=== PATIENT | female | born 1945 | race Caucasian/White ===

== ENCOUNTER 2017-01-07 12:11 | Inpatient (IN) | payer MEDICARE ==
[~2017-01-07] VITALS: Ht 167.6 cm; Wt 78.0 kg
[~2017-01-07 12:11] MED LIST: MECL25 PO; Z.0.NO CURRENT MEDS
[2017-01-07 12:14] VITALS: BP 177/81; PULSE 93; RESP 20; TEMP 97.8; O2SAT 98
--- NOTE | 2017-01-07 12:40 | PD ---
HPI Chief Complaint: GI Complaint Time Seen by Provider: 12:30 Travel History International Travel<30 days: No Contact w/Intl Traveler<30days: No Traveled to known affect area: No History of Present Illness HPI 71-year-old female presents for evaluation of constipation, nausea. She reports that for 2 days she has been constipated- her last bowel movement was 3 days ago. She does report that over the past week she has been eating less in an attempt at dieting weight loss. She reports nausea the past 2 days as well as 2 episodes of small clear emesis this morning. She reports that she is also had intermittent lower crampy abdominal pain but none currently. Denies chest pain, shortness of breath, flank pain, dysuria. She was seen by her primary care physician this morning, Dr. Schmid, who sent her here to rule out obstruction. Discussed with Dr. Schmid on the phone who would like CT imaging, lab work. The patient has no history of obstruction in the past. she reports past surgical history of bilateral oophorectomy. No other complaints at this time. [facility] Past Medical History Anxiety: Yes Medical other: Yes (PSEUDOCHOLINESTERASE DEFICIENCY) ?: Not Ovarian Cysts: Yes (BILATERAL OOPHERECTOMY, PER PT UTERUS STILL INTACT) Social History Alcohol Use: No Tobacco Use: No Substance Use: No Allergies-Medications (Allergen,Severity, Reaction): Coded Allergies: egg (Unverified Allergy, Severe, 01/07/17) succinylcholine (Unverified Allergy, Severe, 01/07/17) penicillin G (Unverified Allergy, Unknown, 01/07/17) Reported Meds & Prescriptions Reported Meds & Active Scripts Active Review of Systems Except as stated in HPI: all other systems reviewed are Neg Physical Exam Narrative GENERAL: Well-developed well-nourished female in no acute distress SKIN: Warm and dry. HEAD: Atraumatic. Normocephalic. EYES: Pupils equal and round. No scleral icterus. No injection or drainage. ENT: No nasal bleeding or discharge. Mucous membranes pink and moist. NECK: Trachea midline. No JVD. CARDIOVASCULAR: Regular rate and rhythm. No murmur appreciated. RESPIRATORY: No accessory muscle use. Clear to auscultation. Breath sounds equal bilaterally. GASTROINTESTINAL: Abdomen soft, non-tender, nondistended. Hepatic and splenic margins not palpable. Normoactive bowel sounds in all 4 quadrants MUSCULOSKELETAL: No obvious deformities. No clubbing. No cyanosis. No edema. NEUROLOGICAL: Awake and alert. No obvious cranial nerve deficits. Motor grossly within normal limits. Normal speech. PSYCHIATRIC: Appropriate mood and affect; insight and judgment normal. Data Data Last Documented VS Vital Signs Date Time Temp Pulse Resp B/P (MAP) Pulse Ox O2 Delivery O2 Flow Rate FiO2 01/07/17 15:54 93 18 180/87 (118) 97 Room Air 01/07/17 12:14 97.8 Orders Orders Complete Blood Count With Diff (01/07/17 12:35) Comprehensive Metabolic Panel (01/07/17 12:35) Lipase (01/07/17 12:35) Urinalysis - C+S If Indicated (01/07/17 12:35) Ct Abd/Pel W Iv Contrast(Rout) (01/07/17 12:35) Iv Access Insert/Monitor (01/07/17 12:35) Ondansetron Inj (Zofran Inj) (01/07/17 12:45) Sodium Chlorid 0.9% 500 Ml Inj (Ns 500 M (01/07/17 12:45) Oral Contrast - Adult (01/07/17 12:52) Diatrizoate Liq ( Gastrodonnie Liq) (01/07/17 12:54) Metoclopramide Inj (Reglan Inj) (01/07/17 14:15) Iohexol 350 Inj (Omnipaque 350 Inj) (01/07/17 14:46) Ondansetron Inj (Zofran Inj) (01/07/17 15:00) Admit Order (Ed Use Only) (01/07/17 16:28) Labs Laboratory Tests Test 01/07/17 13:10 01/07/17 13:16 01/07/17 16:20 White Blood Count 12.9 TH/MM3 Red Blood Count 4.21 MIL/MM3 Hemoglobin 11.9 GM/DL Hematocrit 36.1 % Mean Corpuscular Volume 85.7 FL Mean Corpuscular Hemoglobin 28.4 PG Mean Corpuscular Hemoglobin Concent 33.1 % Red Cell Distribution Width 13.3 % Platelet Count 405 TH/MM3 Mean Platelet Volume 6.9 FL Neutrophils (%) (Auto) 91.2 % Lymphocytes (%) (Auto) 5.2 % Monocytes (%) (Auto) 2.7 % Eosinophils (%) (Auto) 0.0 % Basophils (%) (Auto) 0.9 % Neutrophils # (Auto) 11.8 TH/MM3 Lymphocytes # (Auto) 0.7 TH/MM3 Monocytes # (Auto) 0.3 TH/MM3 Eosinophils # (Auto) 0.0 TH/MM3 Basophils # (Auto) 0.1 TH/MM3 CBC Comment DIFF FINAL Differential Comment Blood Urea Nitrogen 16 MG/DL Creatinine 0.91 MG/DL Random Glucose 114 MG/DL Total Protein 8.1 GM/DL Albumin 3.4 GM/DL Calcium Level 8.7 MG/DL Alkaline Phosphatase 84 U/L Aspartate Amino Transf (AST/SGOT) 19 U/L Alanine Aminotransferase (ALT/SGPT) 27 U/L Total Bilirubin 0.9 MG/DL Sodium Level 135 MEQ/L Potassium Level 3.9 MEQ/L Chloride Level 100 MEQ/L Carbon Dioxide Level 22.5 MEQ/L Anion Gap 13 MEQ/L Estimat Glomerular Filtration Rate 61 ML/MIN Lipase 60 U/L Thyroid Stimulating Hormone 3rd Gen 1.580 uIU/ML Urine Color YELLOW Urine Turbidity SLIGHT Urine pH 5.5 Urine Specific [place] GREATER THAN 1.035 Urine Protein TRACE mg/dL Urine Glucose (UA) NEG mg/dL Urine Ketones 80 OR GREATER mg/dL Urine Occult Blood MOD Urine Nitrite NEG Urine Bilirubin NEG Urine Leukocyte Esterase NEG Urine RBC 4-9 /hpf Urine WBC 9-14 /hpf Urine WBC Clumps FEW Urine Squamous Epithelial Cells 6-8 /hpf Microscopic Urinalysis Comment CULTURE INDICATED MDM Medical Decision Making Medical Screen Exam Complete: Yes Emergency Medical Condition: Yes Medical Record Reviewed: Yes Differential Diagnosis Obstruction, constipation, gastroenteritis, ileus Narrative Course Plan is for basic lab work, CT abdomen and pelvis. The patient received IV Zofran, Reglan for nausea. CT abdomen and pelvis reveals CONCLUSION: 1. There is a pelvis mass that is obstructing the distal sigmoid colon. It measures approximately 4.2 x 2.8 cm. The colon proximal to this portion is dilated and filled with fluid and fecal material. 2. The pelvis mass abuts the vaginal apex, protrudes into the urinary bladder, and is contiguous with the sigmoid colon mass. Therefore, this could represent a colon cancer that has secondarily invaded the surrounding structures or potentially a INTAKE ASSESSOR malignancy that has secondarily invaded the surrounding structures. Given that the epicenter of the mass is mostly outside of the urinary bladder, it is less likely bladder in origin. 3. Nonacute findings include small hiatal hernia and mild atherosclerotic disease. Patient has a history of hysterectomy, oopharectomy. Dr. Wilson discussed the findings with on-call general surgeon Dr. Maddox who recommends consultation with gynecology. Discussed with asphalt paving foreman Dr. Pineda. Dr. Nunez came to see the patient and would like the patient admitted to Dr. Ackerman at [facility]. Diagnosis Primary Impression: Pelvic mass in female Additional Impression: Large bowel obstruction Admitting Information Admitting Physician Requests: Admit Scripts No Active Prescriptions or Reported Meds Chaparro Ureña Jan 07, 2017 12:40
[2017-01-07] MEDS ORDERED: SODIUM CHLORID 0.9% 500 ML INJ 500 ML IV ONE (12:45)
[2017-01-07] MEDS ORDERED: ONDANSETRON HCL 4 MG/2 ML VIAL IVP ONE (12:45)
[2017-01-07] MEDS ORDERED: DIATRIZOATE MEGLUM/DIATRIZOATE SOD 9 ML CUP ONE (12:54)
[2017-01-07 13:15] LABS: AUTOMATED NEUTROPHIL # 11.8 TH/MM3 (1.8-7.7); BASOPHIL # 0.1 TH/MM3 (0-0.2); BASOPHIL % 0.9 % (0.0-2.0); HEMATOCRIT 36.1 % (35.0-46.0); HEMO FLAGS DIFF FINAL; LYMPH % 5.2 % (9.0-44.0); LYMPHOCYTE # 0.7 TH/MM3 (1.0-4.8); MEAN CELL VOLUME 85.7 FL (80.0-100.0); MEAN CORPUSCULAR HEMOGLOBIN 28.4 PG (27.0-34.0); MEAN CORPUSCULAR HGB CONC 33.1 % (32.0-36.0); MONO % 2.7 % (0.0-8.0); NEUT % 91.2 % (16.0-70.0); PLATELET COUNT 405 TH/MM3 (150-450); RED BLOOD COUNT 4.21 MIL/MM3 (4.00-5.30); RED CELL DISTRIBUTION WIDTH 13.3 % (11.6-17.2); WHITE BLOOD COUNT 12.9 TH/MM3 (4.0-11.0)
[2017-01-07 13:22] LABS: CHLORIDE 100 MEQ/L (98-107); POTASSIUM 3.9 MEQ/L (3.5-5.1); SODIUM (NA) 135 MEQ/L (136-145)
[2017-01-07 13:26] LABS: ANION GAP 13 MEQ/L (5-15); BICARBONATE 22.5 MEQ/L (21.0-32.0); BLOOD UREA NITROGEN 16 MG/DL (7-18)
[2017-01-07 13:29] LABS: ALT (GPT) 27 U/L (10-53); AST (GOT) 19 U/L (15-37); GLOMERULAR FILTRATION RATE 61 ML/MIN (>89)
[2017-01-07 13:30] LABS: TOTAL BILIRUBIN ADULT 0.9 MG/DL (0.2-1.0)
[2017-01-07 13:31] LABS: ALKALINE PHOSPHATASE 84 U/L (45-117)
[2017-01-07] MEDS ORDERED: METOCLOPRAMIDE HCL 10 MG/2 ML VIAL IV PUSH ONE (14:15)
[2017-01-07] MEDS ORDERED: IOHEXOL 350 MG/ML 10 ML VIAL (for RAD DIAG) IVCONTRAST ONE (14:46)
[2017-01-07] MEDS ORDERED: ONDANSETRON HCL 4 MG/2 ML VIAL IV PUSH ONE (15:00)
--- NOTE | 2017-01-07 15:15 | RADRPT ---
EXAM DATE/TIME: 01/07/2017 14:35 [facility] COMPARISON: No previous studies available for comparison. INDICATIONS : Nausea and constipation. IV CONTRAST: 95 cc Omnipaque 350 (iohexol) IV ORAL CONTRAST: Partial prescribed oral contrast ingested. RADIATION DOSE: 13.88 CTDIvol (mGy) MEDICAL HISTORY : None SURGICAL HISTORY : Hysterectomy. ENCOUNTER: Initial ACUITY: 1 week PAIN SCALE: 5/10 LOCATION: ABDOMEN TECHNIQUE: Volumetric scanning of the abdomen and pelvis was performed. Using automated exposure control and ad justment of the mA and/or kV according to patient size, radiation dose was kept as low as reasonably achievable to obtain optimal diagnostic quality images. DICOM format image data is available electro nically for review and comparison. FINDINGS: LOWER LUNGS: The visualized lower lungs are clear. LIVER: Homogeneous density without lesion. There is no dilation of the biliary tree. No calcified gallston es. SPLEEN: Normal size without lesion. PANCREAS: Within normal limits. KIDNEYS: Normal in size and shape. There is no mass, stone or hydronephrosis. There is an 18 mm simple cyst i n the right mid kidney. An incidental 4 mm low density lesion in the left mid kidney is too small to characterize. ADRENAL GLANDS: Within normal limits. VASCULAR: There is no aortic aneurysm. There is mild atherosclerotic disease. BOWEL/MESENTERY: A small hiatal hernia is present. Small bowels within normal limits. Colon is abnormally dilated with fecal material and air fluid levels. Caliber change is in the distal sigmoid colon where there is an obstructing mass measuring approximately 4.2 x 2.8 cm. Inferiorly the mass is contiguous with the va ginal apex and a mass protruding into the posterior urinary bladder. Rectum is decompressed. There is trace free fluid in the pelvis. No regional lymphadenopathy is identified. There is no free intraper itoneal air. ABDOMINAL WALL: Within normal limits. RETROPERITONEUM: There is no lymphadenopathy. BLADDER: The pelvis mass abuts the vaginal apex, obstruction the distal sigmoid colon, and protrudes into the urinary bladder. The portion protruding into the bladder measures approximately 4.3 x 1.9 cm. REPRODUCTIVE: Uterus is absent. There is an abnormal soft tissue mass at the vaginal apex that is contiguous with a mass protruding into the urinary bladder and obstructing the distal sigmoid colon. INGUINAL: There is no lymphadenopathy or hernia. MUSCULOSKELETAL: There are degenerative changes of the lumbar spine. No lytic or blastic lesion is seen. CONCLUSION: 1. There is a pelvis mass that is obstructing the distal sigmoid colon. It measures approximately 4.2 x 2.8 cm. The colon proximal to this portion is dilated and filled with fluid and fecal material. 2. The pelvis mass abuts the vaginal apex, protrudes into the urinary bladder, and is contiguous with the sigmoid colon mass. Therefore, this could represent a colon cancer that has secondarily invaded the surrounding structures or potentially a CONSTRUCTION JOB COST ESTIMATOR malignancy that has secondarily invaded the surroundi ng structures. Given that the epicenter of the mass is mostly outside of the urinary bladder, it is l ess likely bladder in origin. 3. Nonacute findings include small hiatal hernia and mild atherosclerotic disease. Jorge Gleason MD on January 07, 2017 at 15:05 Board Certified Radiologist. This report was verified electronically.
[2017-01-07 15:54] VITALS: BP 180/87; PULSE 93; RESP 18; O2SAT 97
[2017-01-07 16:35] LABS: BLOOD, URINE MOD (NEG); GLUCOSE,URINE NEG (NEG); KETONE, URINE 80 OR GREATER mg/dL (NEG); NITRITE,URINE NEG (NEG); PH, URINE 5.5 (5.0-8.5)
--- NOTE | 2017-01-07 16:59 | HHI.HP ---
HPI Service [facility] Hospitalists Primary Care Physician Tianna Teresa MD Admission Diagnosis pelvic mass, sigmoid obstruction Chief Complaint: Abdominal pain constipation, sent to ER by primary care physician Travel History International Travel<30 Days: No Contact w/Intl Traveler <30 Da: No Traveled to Known Affected Are: No History of Present Illness 71-year-old white female who is relatively healthy but presented to her primary care physician's office today with concern regarding abdominal pain which started yesterday. Pain is in the lower abdomen without any significant reinitiation. She also has noted some constipation over the last 2-3 days. She has a cramping type pain which lasts several seconds with intensity of a 5 out of 10 in pain generally. She has had constant nausea with a couple episodes of clear phlegm posttussive emesis but no significant volume of emesis. Pain seems to be improved with lying flat in the supine position with flexed legs. She notes that she generally passes a fair amount of stool each morning but only had a small bowel movement yesterday morning. No recent change in diet. No fever or chills. Denies any dysuria or hematuria or vaginal discharge. Last colonoscopy was in 2010 with no apparent diverticulosis. CT scan of abdomen and pelvis performed in the ER revealed a 4.2 x 2.8 cm pelvic mass with colonic obstruction due to impingement by the mass. Mass etiology somewhat unclear but not thought to be of bladder origin. More likely colonic or possibly remnant LEATHER WORKER tissue origin. Review of Systems Constitutional: COMPLAINS OF: Diaphoretic episodes, Fatigue Eyes: DENIES: Blurred vision, Diplopia, Eye inflammation, Eye pain, Vision loss , Photosensitivity, Double Vision Ears, nose, mouth, throat: DENIES: Tinnitus, Hearing loss, Vertigo, Nasal discharge, Oral lesions, Throat pain, Hoarseness, Ear Pain, Running Nose, Epistaxis, Sinus Pain, Toothache, Odynophagia Respiratory: COMPLAINS OF: Cough, DENIES: Apneas, Snoring, Wheezing, Hemoptysis , Sputum production, Shortness of breath Cardiovascular: DENIES: Chest pain, Palpitations, Syncope, Dyspnea on Exertion , PND, Lower Extremity Edema, Orthopnea, Claudication Gastrointestinal: COMPLAINS OF: Abdominal pain, Constipation, Nausea, Reflux, Vomiting Musculoskeletal: DENIES: Joint pain, Muscle aches, Stiffness, Joint Swelling, Back pain, Neck pain Integumentary: DENIES: Abnormal pigmentation, Pruritus, Rash, Nail changes, Breast masses, Breast skin changes, Nipple discharge Hematologic/lymphatic: DENIES: Bruising, Lymphadenopathy Immunologic/allergic: DENIES: Eczema, Urticaria Psychiatric: COMPLAINS OF: Anxiety Past Family Social History Past Medical History CK D stage III Anxiety History of esophagitis Hyperlipidemia Pseudocholinesterase deficiency Vitamin D insufficiency Past Surgical History History of biopsy of the cervix which apparently revealed some atypical precancerous cells per patient Cervical conization by laser History of total abdominal hysterectomy with bilateral oophorectomy per patient for "precancerous cells in a cyst" in 2004; review of previous LEATHER WORKER oncology notes reveals that she had some dysplastic cells and 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 SKIN: No rashes, ecchymoses or lesions. Cool and dry. HEAD: Atraumatic. Normocephalic. No temporal or scalp tenderness. EYES: Pupils equal round and reactive. Extraocular motions intact. No scleral icterus. No injection or drainage. ENT: Nose without bleeding, purulent drainage or septal hematoma. Airway patent. NECK: Trachea midline. No JVD or lymphadenopathy. Supple, nontender, no meningeal signs. CARDIOVASCULAR: Regular rate and rhythm without murmurs, gallops, or rubs. RESPIRATORY: Clear to auscultation. Breath sounds equal bilaterally. No wheezes , rales, or rhonchi. GASTROINTESTINAL: Abdomen soft, mildly tender in the lower mid abdomen with voluntary guarding. No rebound. Moderate distention of lower abdomen. No hepato-splenomegaly MUSCULOSKELETAL: Extremities without clubbing, cyanosis, or edema. No joint tenderness, effusion, or edema noted. No calf tenderness. NEUROLOGICAL: Awake and alert. Cranial nerves II through XII intact. Motor and sensory grossly within normal limits. Five out of 5 muscle strength in all muscle groups. Normal speech. Laboratory Laboratory Tests Test 01/07/17 13:10 01/07/17 16:20 White Blood Count 12.9 Red Blood Count 4.21 Hemoglobin 11.9 Hematocrit 36.1 Mean Corpuscular Volume 85.7 Mean Corpuscular Hemoglobin 28.4 Mean Corpuscular Hemoglobin Concent 33.1 Red Cell Distribution Width 13.3 Platelet Count 405 Mean Platelet Volume 6.9 Neutrophils (%) (Auto) 91.2 Lymphocytes (%) (Auto) 5.2 Monocytes (%) (Auto) 2.7 Eosinophils (%) (Auto) 0.0 Basophils (%) (Auto) 0.9 Neutrophils # (Auto) 11.8 Lymphocytes # (Auto) 0.7 Monocytes # (Auto) 0.3 Eosinophils # (Auto) 0.0 Basophils # (Auto) 0.1 CBC Comment DIFF FINAL Differential Comment Blood Urea Nitrogen 16 Creatinine 0.91 Random Glucose 114 Total Protein 8.1 Albumin 3.4 Calcium Level 8.7 Alkaline Phosphatase 84 Aspartate Amino Transf (AST/SGOT) 19 Alanine Aminotransferase (ALT/SGPT) 27 Total Bilirubin 0.9 Sodium Level 135 Potassium Level 3.9 Chloride Level 100 Carbon Dioxide Level 22.5 Anion Gap 13 Estimat Glomerular Filtration Rate 61 Lipase 60 Urine pH 5.5 Urine Protein TRACE Urine Glucose (UA) NEG Urine Ketones 80 OR GREATER Urine Occult Blood MOD Urine Nitrite NEG Urine Bilirubin NEG Urine Leukocyte Esterase NEG Result Diagram: 01/07/17 1310 01/07/17 1310 Imaging Last 72 hours Impressions Abdomen/Pelvis CT 01/07/17 1235 Signed Impressions: Service Date/Time: Saturday, January 07, 2017 14:35 - CONCLUSION: 1. There is a pelvis mass that is obstructing the distal sigmoid colon. It measures approximately 4.2 x 2.8 cm. The colon proximal to this portion is dilated and filled with fluid and fecal material. 2. The pelvis mass abuts the vaginal apex , protrudes into the urinary bladder, and is contiguous with the sigmoid colon mass. Therefore, this could represent a colon cancer that has secondarily invaded the surrounding structures or potentially a LEATHER WORKER malignancy that has secondarily invaded the surrounding structures. Given that the epicenter of the mass is mostly outside of the urinary bladder, it is less likely bladder in origin. 3. Nonacute findings include small hiatal hernia and mild atherosclerotic disease. MD Esther Mcleod VTE Risk Assessment Caprini VTE Risk Assessment: Mod/High Risk (score >= 2) Caprini Risk Assessment Model Point Value = 1 Point Value = 2 Point Value = 3 Point Value = 5 Age 41-60 Minor surgery BMI > 25 kg/m2 Swollen legs Varicose veins or History of unexplained or recurrent spontaneous Oral contraceptives or hormone replacement Sepsis (< 1 month) Serious lung disease, including pneumonia (< 1 month) Abnormal pulmonary function Acute myocardial infarction Congestive heart failure (< 1 month) History of inflammatory bowel disease Medical patient at bed rest Age 61-74 Arthroscopic surgery Major open surgery (> 45 min) Laparoscopic surgery (> 45 min) Malignancy Confined to bed (> 72 hours) Immobilizing plaster cast Central venous access Age >= 75 History of VTE Family history of VTE Factor V Leiden Prothrombin [id number] Lupus anticoagulant Anticardiolipin antibodies Elevated serum homocysteine Heparin-induced thrombocytopenia Other congenital or acquired thrombophilia Stroke (< 1 month) Elective arthroplasty Hip, pelvis, or leg fracture Acute spinal cord injury (< 1 month) Prophylaxis Regimen Total Risk Factor Score Risk Level Prophylaxis Regimen 0-1 Low Early ambulation 2 Moderate Order ONE of the following: *Sequential Compression Device (SCD) *Heparin 5000 units SQ BID 3-4 Higher Order ONE of the following medications: *Heparin 5000 units SQ TID *Enoxaparin/Lovenox 40 mg SQ daily (WT < 150 kg, CrCl > 30 mL/min) *Enoxaparin/Lovenox 30 mg SQ daily (WT < 150 kg, CrCl > 10-29 mL/min) *Enoxaparin/Lovenox 30 mg SQ BID (WT < 150 kg, CrCl > 30 mL/min) AND/OR *Sequential Compression Device (SCD) 5 or more Highest Order ONE of the following medications: *Heparin 5000 units SQ TID (Preferred with Epidurals) *Enoxaparin/Lovenox 40 mg SQ daily (WT < 150 kg, CrCl > 30 mL/min) *Enoxaparin/Lovenox 30 mg SQ daily (WT < 150 kg, CrCl > 10-29 mL/min) *Enoxaparin/Lovenox 30 mg SQ BID (WT < 150 kg, CrCl > 30 mL/min) AND *Sequential Compression Device (SCD) Assessment and Plan Problem List: (1) Large bowel obstruction ICD Codes: K56.609 - Unspecified intestinal obstruction, unspecified as to partial versus complete obstruction Status: Acute Plan: Likely secondary to obstructive masses noted on CT. We'll have LEATHER WORKER and general surgery see the patient to offer opinions. Vital signs are stable presently. Continue anti-medics and IV fluids. Pain medication as needed. We'll check a few additional labs given her LEATHER WORKER dysplasia history. (2) Pelvic mass in female ICD Codes: R19.00 - Intra-abdominal and pelvic swelling, mass and lump, unspecified site Status: Acute Plan: As noted above. (3) Anxiety ICD Codes: F41.9 - Anxiety disorder, unspecified Plan: Alprazolam as needed. (4) Hyperlipidemia ICD Codes: E78.5 - Hyperlipidemia, unspecified Plan: Follow as outpatient. Code Status Full Discussed Condition With Patient, her , patient's primary care physician and Dr. Bello. Physician Certification 2 Midnight Certification Type: Admission for Inpatient Services Order for Inpatient Services The services are ordered in accordance with Medicare regulations or non- Medicare payer requirements, as applicable. In the case of services not specified as inpatient-only, they are appropriately provided as inpatient services in accordance with the 2-midnight benchmark. Estimated LOS (days): 2 days is the estimated time the patient will need to remain in the hospital, assuming treatment plan goals are met and no additional complications. Post-Hospital Plan: Home Jarrell Nunez MD PhD Jan 07, 2017 16:59
[2017-01-07] MEDS ORDERED: ALPRAZolam 0.25 MG TAB PO PRN (17:00)
[2017-01-07 17:08] LABS: URINE COLOR YELLOW (YELLW/STRAW)
[2017-01-07 17:09] LABS: COMMENT (UR) CULTURE INDICATED; CULTURE IF INDICATED CULTURE INDICATED
[2017-01-07] MEDS: ONDANSETRON HCL 4 MG/2 ML VIAL IV PUSH PRN (17:09)
[2017-01-07] MEDS: NS + KCL 20 MEQ INJ 1,000 ML IV SCH (17:09)
[2017-01-07] MEDS: MORPHINE SULFATE 2 MG/ML INJ IV PUSH PRN (18:13)
[2017-01-07 18:45] VITALS: BP 174/72; PULSE 86; RESP 18; O2SAT 97
[2017-01-07 19:42] VITALS: BP 166/78
[2017-01-07 20:00] VITALS: BP 184/81; PULSE 84; RESP 18; TEMP 97.7; O2SAT 96
[2017-01-07] MEDS ORDERED: cefTRIAXone INJ 1,000 MG in SODIUM CHLORIDE 0.9% INJ 100 ML IV ONE (20:15)
[2017-01-07] MEDS: PROMETHAZINE INJ 25 MG/ML VIAL IM PRN (22:05)
[2017-01-08] VITALS: BP 141/83; PULSE 79; RESP 16; TEMP 97.6; O2SAT 98
[2017-01-08] MEDS: ONDANSETRON HCL 4 MG/2 ML VIAL IV PUSH PRN ×4 (01:08→22:08)
[2017-01-08] MEDS: MORPHINE SULFATE 2 MG/ML INJ IV PUSH PRN ×6 (01:09→22:03)
[2017-01-08 04:00] VITALS: BP 135/65; PULSE 82; RESP 18; TEMP 97.4; O2SAT 99
[2017-01-08] MEDS: NS + KCL 20 MEQ INJ 1,000 ML IV SCH ×2 (05:02→07:12)
[2017-01-08 07:32] LABS: AUTOMATED NEUTROPHIL # 10.2 TH/MM3 (1.8-7.7); BASOPHIL # 0.1 TH/MM3 (0-0.2); BASOPHIL % 0.5 % (0.0-2.0); EOSINOPHIL % 0.3 % (0.0-4.0); HEMATOCRIT 35.2 % (35.0-46.0); HEMO FLAGS DIFF FINAL; LYMPH % 8.4 % (9.0-44.0); MEAN CELL VOLUME 87.9 FL (80.0-100.0); MEAN CORPUSCULAR HEMOGLOBIN 28.8 PG (27.0-34.0); MEAN CORPUSCULAR HGB CONC 32.8 % (32.0-36.0); MONO % 6.6 % (0.0-8.0); NEUT % 84.2 % (16.0-70.0); PLATELET COUNT 349 TH/MM3 (150-450); RED CELL DISTRIBUTION WIDTH 14.6 % (11.6-17.2); WHITE BLOOD COUNT 12.1 TH/MM3 (4.0-11.0)
[2017-01-08 07:49] LABS: ANION GAP 12 MEQ/L (5-15); AST (GOT) 20 U/L (15-37); BICARBONATE 20.4 MEQ/L (21.0-32.0); BLOOD UREA NITROGEN 15 MG/DL (7-18); CHLORIDE 107 MEQ/L (98-107); GLOMERULAR FILTRATION RATE 65 ML/MIN (>89); POTASSIUM 3.8 MEQ/L (3.5-5.1); SODIUM (NA) 139 MEQ/L (136-145)
[2017-01-08 07:50] LABS: ALT (GPT) 22 U/L (10-53)
[2017-01-08 07:52] LABS: ALKALINE PHOSPHATASE 73 U/L (45-117); TOTAL BILIRUBIN ADULT 0.5 MG/DL (0.2-1.0)
[2017-01-08 08:02] VITALS: BP 143/85; PULSE 78; RESP 19; TEMP 98.1; O2SAT 96
--- NOTE | 2017-01-08 09:31 | RADRPT ---
EXAM DATE/TIME: 01/08/2017 08:52 [facility] COMPARISON: CT ABDOMEN & PELVIS W CONTRAST, January 07, 2017, 14:35. INDICATIONS : Pelvic pain. Pelvic mass seen on CT. MEDICAL HISTORY : Hypertension. Bilateral oophorectomy. Sigmoid obstruction. Renal disease. SURGICAL HISTORY : Cervical biopsy. Cervical conization. Colonoscopy. ENCOUNTER: Initial ACUITY: 2 days PAIN SCORE: 4/10 LOCATION: Bilateral pelvis MEASUREMENTS: UTERUS: Surgically absent ENDOMETRIAL STRIPE: RIGHT OVARY: Surgically absent LEFT OVARY: Surgically absent FINDINGS: There is heterogeneous 6 cm mass in the pelvis that looks like it arises from the vaginal cuff. MRI would offer more information cover the multiplanar acquisition abilities. CONCLUSION: Ultrasound confirms mass in the pelvis and location the vaginal cuff. MRI is suggest ed. Aj Jarrett MD FACR on January 08, 2017 at 9:28 Board Certified Radiologist. This report was verified electronically.
--- NOTE | 2017-01-08 10:21 | HHI.PR ---
Subjective Remarks doing ok. Objective Vitals heart reg lung cta abd lower abdomen full/bs ext no edema Vital Signs Date Time Temp Pulse Resp B/P (MAP) Pulse Ox O2 Delivery O2 Flow Rate FiO2 01/08/17 08:02 98.1 78 19 143/85 (104) 96 01/08/17 04:00 97.4 82 18 135/65 (88) 99 01/08/17 00:00 97.6 79 16 141/83 (102) 98 01/07/17 20:30 Room Air 01/07/17 20:00 97.7 84 18 184/81 (115) 96 01/07/17 19:42 88 18 166/78 (107) 97 01/07/17 18:45 86 18 174/72 (106) 97 Room Air 01/07/17 18:18 17 01/07/17 15:54 93 18 180/87 (118) 97 Room Air 01/07/17 12:14 97.8 93 20 177/81 (113) 98 Result Diagram: 01/08/17 0638 01/08/17 0638 Imaging Last 72 hours Impressions Abdomen/Pelvis CT 01/07/17 1235 Signed Impressions: Service Date/Time: Saturday, January 07, 2017 14:35 - CONCLUSION: 1. There is a pelvis mass that is obstructing the distal sigmoid colon. It measures approximately 4.2 x 2.8 cm. The colon proximal to this portion is dilated and filled with fluid and fecal material. 2. The pelvis mass abuts the vaginal apex , protrudes into the urinary bladder, and is contiguous with the sigmoid colon mass. Therefore, this could represent a colon cancer that has secondarily invaded the surrounding structures or potentially a EATING DISORDER PSYCHOLOGIST malignancy that has secondarily invaded the surrounding structures. Given that the epicenter of the mass is mostly outside of the urinary bladder, it is less likely bladder in origin. 3. Nonacute findings include small hiatal hernia and mild atherosclerotic disease. Jorge Gleason MD A/P Problem List: (1) Pelvic mass in female ICD Codes: R19.00 - Intra-abdominal and pelvic swelling, mass and lump, unspecified site Status: Acute Plan: 1. pelvic mass..appears to arise from vaginal cuff with some degree of bowel obstruction and AFL's gynecology and surgery consulted. await to get opinions and management reccs cont ivf pain control dvt prophylaxis. (2) Large bowel obstruction ICD Codes: K56.609 - Unspecified intestinal obstruction, unspecified as to partial versus complete obstruction Status: Acute (3) Anxiety ICD Codes: F41.9 - Anxiety disorder, unspecified Status: Chronic Plan: Alprazolam as needed. (4) Hyperlipidemia ICD Codes: E78.5 - Hyperlipidemia, unspecified Status: Chronic Plan: Follow as outpatient. Juve Bello MD Jan 08, 2017 10:20
[2017-01-08 12:02] VITALS: BP 162/74; PULSE 80; RESP 19; TEMP 98.4; O2SAT 96
[2017-01-08 16:02] VITALS: BP 160/79; PULSE 82; RESP 19; TEMP 99.3; O2SAT 94
[2017-01-08] MEDS: PROMETHAZINE INJ 25 MG/ML VIAL IM PRN (17:31)
--- NOTE | 2017-01-08 18:24 | PD.CONS ---
HPI Chief Complaint Abdominal pain and vomiting Date Seen: Jan 08, 2017 Time Seen: 16:45 Travel History International Travel<30 Days: No Contact w/Intl Traveler<30Days: No Known Affected Area: No History of Present Illness HPI Patient is a 71-year-old white female para 1 who is 15 years status post JHONNY/ BSO by Dr. Paz in [place] done for ovarian cysts according the patient. VISUAL MERCHANDISING MANAGER is consulted because of a pelvic mass seen on CT scan and ultrasound that is obstructing the large bowel at the level of the vaginal cuff, patient describes after the hysterectomy having vaginal dysplasia cells seen and treated she is a little uncertain about this being after the hysterectomy she' s pretty sure was and we just don't know if there were there on cx before the hysterectomy that she states seen by Dr. Silveira for vaginal dysplasia therapy Para: 1 : 1 History Obstetric History Obstetric History One vaginal delivery Past Surgical History Narrative Surgical JHONNY/BSO for ovarian cysts , she has a history of cervical or possibly just vaginal dysplasia possibly before hysterectomy and certainly after and was treated with Dr. Arrieta [VISUAL MERCHANDISING MANAGER ONC] for this. Social History Alcohol Use: No Tobacco Use: No Substance Abuse: No Allergies-Medications (Allergen,Severity, Reaction): Coded Allergies: egg (Unverified Allergy, Severe, 01/07/17) succinylcholine (Unverified Allergy, Severe, 01/07/17) penicillin G (Unverified Allergy, Unknown, 01/07/17) Home Meds Discontinued Reported Medications Miscellaneous (No Current Meds) Misc 07/27/12 Discontinued Scripts Meclizine Hcl (Antivert) 25 Mg Tab, 25 MG PO TIDPRN, #20 Prov:Clementina ERAZO M.D. 07/27/12 Review of Systems General / Constitutional: No: Fever, Weight Gain, Chills, Other Eyes: No: Diploplia, Blurred Vision, Visual changes, Pain, Photophobia HENT: No: Headaches, Vertigo, Lightheadedness Cardiovascular: No: Irregular Rhythm, Chest Pain or Discomfort, Palpitations, Tachycardia, Syncope, Varicosities, Edema, Cyanosis Respiratory: No: Cough, Short of Breath, Other Gastrointestinal: Nausea, Vomiting, Abdominal Pain, No: Diarrhea Genitourinary: No: Decreased Urinary Output, Oliguria Musculoskeletal: No: Limited ROM, Weakness, Cramping, Edema, Pain Skin: No Rash, No Itching, No Dryness, No Lumps, No Change in Pigmentation, No Change in Nails, No Alopecia, No Lesions Neurologic: No: Weakness, Dizziness, Syncope, Focal Abnormalities, Coordination Problem, Headache, Slurred Speech, Seizures Psychiatric: No: Depression, Suicidal Ideations, Homicidal Ideation Endocrine: No: Heat Intolerance, Cold Intolerance, Polydipsia, Polyuria, Other Physical Exam Vital Signs Date Time Temp Pulse Resp B/P (MAP) Pulse Ox O2 Delivery O2 Flow Rate FiO2 01/08/17 16:02 99.3 82 19 160/79 (106) 94 01/08/17 12:02 98.4 80 19 162/74 (103) 96 01/08/17 08:02 98.1 78 19 143/85 (104) 96 01/08/17 04:00 97.4 82 18 135/65 (88) 99 01/08/17 00:00 97.6 79 16 141/83 (102) 98 01/07/17 20:30 Room Air 01/07/17 20:00 97.7 84 18 184/81 (115) 96 01/07/17 19:42 88 18 166/78 (107) 97 01/07/17 18:45 86 18 174/72 (106) 97 Room Air 01/07/17 18:18 17 Narrative GENERAL: Well-nourished, well-developed patient. SKIN: Warm and dry. HEAD: Normocephalic and atraumatic. EYES: No scleral icterus. No injection or drainage. ENT: No nasal drainage noted. Mucous membranes pink. Airway patent. NECK: Supple, trachea midline. No JVD. CARDIOVASCULAR: Regular rate and rhythm without murmurs, gallops, or rubs. RESPIRATORY: Breath sounds equal bilaterally. No accessory muscle use. BREASTS: Bilateral exam showed no masses , no retractions, no nipple discharge. ABDOMEN/GI: Abdomen distended, 1+-tender in lower quads, bowel sounds present but decreased and plinking sounds similar to bowel obstruction pattern, no rebound, no guarding External Genitalia: intact and normal in appearance Vagina has a indurated in the upper half on internal exam with speculum and we could visualize blood coming from a area of the vaginal cuff. Due to the blood I cannot see the mass. However it's palpable when you feel that this area there is a firm mass at the vaginal cuff that palpates mid positioned almost anterior approximately 6-7 cm proximal size of tennis ball this area very friable and tender with rectal exam some stool sample to consent for a Hemoccult however there was enough blood in the area that that may not be that accurate but the rectal mucosa was normal. Rectal mucosa up into the area of the mass with my rectal finger was normal and it was not going through to the mass the mass was not coming through into the rectum and the rectal mucosa seemed intact and the masses is above that EXTREMITIES: No cyanosis or edema. BACK: Nontender without obvious deformity. No CVA tenderness. NEUROLOGICAL: Awake and alert. Motor and sensory grossly within normal limits. Five out of 5 muscle strength in all muscle groups. Normal speech. Data Data Orders Orders Ceftriaxone Inj (Rocephin Inj) (01/07/17 20:15) Promethazine Inj (Phenergan Inj) (01/07/17 22:00) Equip, Iv Pump Use Of (01/08/17 03:51) Clonidine (Catapres) (01/08/17 06:15) Cancer Antigen 125 (01/08/17 08:30) Carcinoembryonic Antigen (Cea) (01/08/17 08:30) Us Pelvis Comp Driller And Broacher/Non-Preg (01/08/17 ) Occult Blood (Hemoccult) Stool (01/08/17 17:30) Specimen To Be Collected PRN (01/08/17 17:30) Labs Laboratory Tests Test 01/08/17 06:38 01/08/17 09:32 White Blood Count 12.1 Red Blood Count 4.00 Hemoglobin 11.5 Hematocrit 35.2 Mean Corpuscular Volume 87.9 Mean Corpuscular Hemoglobin 28.8 Mean Corpuscular Hemoglobin Concent 32.8 Red Cell Distribution Width 14.6 Platelet Count 349 Mean Platelet Volume 7.8 Neutrophils (%) (Auto) 84.2 Lymphocytes (%) (Auto) 8.4 Monocytes (%) (Auto) 6.6 Eosinophils (%) (Auto) 0.3 Basophils (%) (Auto) 0.5 Neutrophils # (Auto) 10.2 Lymphocytes # (Auto) 1.0 Monocytes # (Auto) 0.8 Eosinophils # (Auto) 0.0 Basophils # (Auto) 0.1 CBC Comment DIFF FINAL Differential Comment Blood Urea Nitrogen 15 Creatinine 0.86 Random Glucose 82 Total Protein 7.2 Albumin 2.9 Calcium Level 8.5 Alkaline Phosphatase 73 Aspartate Amino Transf (AST/SGOT) 20 Alanine Aminotransferase (ALT/SGPT) 22 Total Bilirubin 0.5 Sodium Level 139 Potassium Level 3.8 Chloride Level 107 Carbon Dioxide Level 20.4 Anion Gap 12 Estimat Glomerular Filtration Rate 65 Carcinoembryonic Antigen 1.0 CA 125 Antigen 18.5 Date/Time Source Procedure Growth Status 01/08/17 17:20 Stool Stool Stool Occult Blood (TEO) Pending Received 01/07/17 16:20 Urine Clean Catch Urine Culture - Final 50-100,000 CFU/ML MIXED GRAM POSITIVE... 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 could be Other tumor possibly lymphoma the vagina doubt this is a adenocarcinoma of the rectum or: However that's is possibility Plan The patient to have further workup that would include an exam under anesthesia biopsy of this pelvic mass per vagina probably by VISUAL MERCHANDISING MANAGER oncology Dr Silveira should be consulted, she needs a proctosigmoidoscopy and evaluation by general surgery to relieve her obstruction by either diverting colostomy or whatever procedure deemed appropriate . 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
[2017-01-08 20:00] VITALS: BP 173/77; PULSE 100; RESP 16; TEMP 98.5; O2SAT 94
[2017-01-09] VITALS: BP 141/76; PULSE 97; RESP 20; TEMP 98.4; O2SAT 94
[2017-01-09] MEDS: cloNIDine HCL 0.1 MG TAB PO PRN (03:43)
[2017-01-09] MEDS: MORPHINE SULFATE 2 MG/ML INJ IV PUSH PRN ×5 (03:43→21:21)
[2017-01-09] MEDS: ONDANSETRON HCL 4 MG/2 ML VIAL IV PUSH PRN ×3 (03:44→17:11)
[2017-01-09 04:00] VITALS: BP 181/81; PULSE 96; RESP 20; TEMP 98.7; O2SAT 93
[2017-01-09] MEDS: NS + KCL 20 MEQ INJ 1,000 ML IV SCH ×2 (05:54→21:21)
[2017-01-09 08:00] VITALS: BP 137/65; PULSE 94; RESP 20; TEMP 97.9; O2SAT 93
--- NOTE | 2017-01-09 08:41 | HHI.PR ---
Subjective Remarks ABDOMEN PAIN NO FLATUS/BM NO VOMITING Objective Vitals heart reg lung cta abd distended/minimal to no bs ext no edema Vital Signs Date Time Temp Pulse Resp B/P (MAP) Pulse Ox O2 Delivery O2 Flow Rate FiO2 01/09/17 04:00 98.7 96 20 181/81 (114) 93 01/09/17 00:00 98.4 97 20 141/76 (97) 94 01/08/17 20:30 Room Air 01/08/17 20:00 98.5 100 16 173/77 (109) 94 01/08/17 16:02 99.3 82 19 160/79 (106) 94 01/08/17 12:02 98.4 80 19 162/74 (103) 96 Result Diagram: 01/08/17 0638 01/08/17 0638 Imaging Last 72 hours Impressions Abdomen/Pelvis CT 01/07/17 1235 Signed Impressions: Service Date/Time: Saturday, January 07, 2017 14:35 - CONCLUSION: 1. There is a pelvis mass that is obstructing the distal sigmoid colon. It measures approximately 4.2 x 2.8 cm. The colon proximal to this portion is dilated and filled with fluid and fecal material. 2. The pelvis mass abuts the vaginal apex , protrudes into the urinary bladder, and is contiguous with the sigmoid colon mass. Therefore, this could represent a colon cancer that has secondarily invaded the surrounding structures or potentially a V BELT SKIVER malignancy that has secondarily invaded the surrounding structures. Given that the epicenter of the mass is mostly outside of the urinary bladder, it is less likely bladder in origin. 3. Nonacute findings include small hiatal hernia and mild atherosclerotic disease. Jorge Gleason MD A/P Problem List: (1) Pelvic mass in female ICD Codes: R19.00 - Intra-abdominal and pelvic swelling, mass and lump, unspecified site Status: Acute Plan: 1. pelvic mass..appears to arise from vaginal cuff with some degree of bowel obstruction and AFL's spinning lathe operator thinks possible SCC. hx vaginal cuff dysplasia. but it is obstructing the sigmoid and also bladder involvement. discussed with gynecology..dr Molina and Soledad.needs mass bx discussed with dr Mansfield CRS...he will eval pt and likely take her for scope and bx's. cont supportive care (2) Large bowel obstruction ICD Codes: K56.609 - Unspecified intestinal obstruction, unspecified as to partial versus complete obstruction Status: Acute (3) Anxiety ICD Codes: F41.9 - Anxiety disorder, unspecified Status: Chronic Plan: Alprazolam as needed. (4) Hyperlipidemia ICD Codes: E78.5 - Hyperlipidemia, unspecified Status: Chronic Plan: Follow as outpatient. Juve Bello MD Jan 09, 2017 08:41
[2017-01-09] MEDS ORDERED: ENALAPRILAT 1.25 MG/ML VIAL IV PUSH PRN (09:00)
[2017-01-09] MEDS ORDERED: METOPROLOL TARTRATE 25 MG TAB PO PRN (11:00)
[2017-01-09] MEDS ORDERED: SODIUM CHLORID 0.9% 500 ML IV PRN (11:00)
[2017-01-09] MEDS ORDERED: LACTATED RINGER'S 1000 ML IV PRN (11:00)
[2017-01-09] MEDS ORDERED: INSULIN HUMAN REGULAR 1,000 UNITS/10 ML VIAL SQ PRN (11:00)
[2017-01-09] MEDS ORDERED: CHLORHEXIDINE GLUCONATE 2 % 1 PACK (2 CLOTHS) TOPICAL PRN (11:00)
[2017-01-09] MEDS ORDERED: POVIDONE IODINE 5% (ANTISEPSIS KIT) 4 APPLICATIONS EACH NARE PRN (11:00)
[2017-01-09] MEDS ORDERED: OXYTOCIN 10 UNIT/ML AMP ONE (11:22)
[2017-01-09] MEDS ORDERED: ACETAMINOPHEN 1000 MG/100 ML 100 ML IV ONE (12:14)
[2017-01-09] MEDS ORDERED: ETOMIDATE 20 MG/10 ML VIAL ONE (12:14)
[2017-01-09 13:39] VITALS: BP 144/70; PULSE 99; RESP 20; TEMP 98.1; O2SAT 94
[2017-01-09 16:00] VITALS: BP 156/77; PULSE 94; RESP 20; TEMP 98.2; O2SAT 97
--- NOTE | 2017-01-09 18:41 | MB ---
cc: MAGGIE TOLEDO M.D., WESLEY J. MD PHD LUZ MARINA,SAÚL WHITTINGTON,SEBASTIAN Crain MD DATE OF CONSULTATION 01/09/[address] Saúl Bello and Dr. Maggie Toledo REASON FOR CONSULTATION Pelvic mass. HISTORY OF PRESENT ILLNESS A 71-year-old female who went to see her primary care physician (Dr. Jarrell Nunez) complaining of one to two day history of abdominal pain. Associated with this, has been decreased appetite, some nausea without emesis, difficulty having bowel movements. No compromise to voiding. Overall decreased energy associated with this. The pain became intense to the point she was referred to the emergency room where imaging shows a central pelvic mass approximately 4.2 cm but quite significant in its location and effect in that it is located in the central pelvis. It is reportedly palpable on vaginal exam with compression into or invasion into the vagina. It also shows severe compression to the posterior bladder and/or invasion into the bladder. It also shows extensive compression into and/or invasion into or arising from the colon such that the central pelvic structures are all affected with the colon almost completely obstructed, collapsed distally with marked dilation proximally. An exam was performed initially by Dr. Molina, [facility] BLEACH PACKER, who felt the mass at the vaginal apex, felt that it was probably neoplastic but biopsy was not performed. Dr. Debbie Pineda, sr community manager pipeline superintendent division, had seen her and counseled her and recommended examination under anesthesia with tissue biopsy. Dr. Maggie Toledo has been consulted because of the impending or near-complete colonic obstruction. I was consulted due to the potential neoplastic nature of this mass and the possibility of a gynecologic origin. In an effort to centralize care, I spoke with Dr. Pineda, Dr. Toledo, Dr. Bello and all agreed that a single anesthesia for diagnostic purposes would be favored and given that her principal medical concern and problem of greatest concern is the impending colonic obstruction that we will await Dr. Toledo's recommendation and, when he schedules the procedure under anesthesia, I will try to adjust my schedule to be present to do the exam under anesthesia and obtain tissue biopsies. If for some reason my schedule conflicts, Dr. Toledo will certainly try to obtain tissue biopsy for diagnosis. She is seen with her present with the aforementioned findings and steps taken and recommendations summarized. She has not yet met Dr. Toledo, but I explained that given her symptoms seem most related to the obstructed bowel that we will defer to Dr. Toledo's experience and guidance for recommendations. I emphasized that whatever steps are taken initially would be for information gathering and/or palliation of her symptoms, but given the extensive infiltrative nature of this process a surgery to remove the problem will not likely be the initial recommendation, but tissue biopsies for example to determine if this were a primary squamous cell carcinoma of the vagina versus transitional cell carcinoma suggesting it may have arisen from the bladder versus an adenocarcinoma suggesting it may have arisen from the colon could help clarify and direct subsequent treatment recommendations which may include chemotherapy and/or radiation and/or surgery and/or diversion and/or stent placement possibly others. She is seen now in consultation for further evaluation and recommendations regarding these findings. PAST MEDICAL HISTORY 1. Elevated lipids a pseudocholinesterase deficiency 2. Vitamin D deficiency 3. History of esophagitis 4. History of vaginal dysplasia 5. Chronic kidney disease stage III PAST SURGICAL HISTORY Hysterectomy bilateral salpingo-oophorectomy for cervical dysplasia in 2004. She had vaginal dysplasia at the cuff. She was last seen by me as a patient in 2005. No follow up in my office since that time. MEDICATIONS As outlined. Outpatient 1. Alprazolam 2. Vitamin supplements. 3. She has an EpiPen if needed. ALLERGIES PENICILLIN SUCCINYLCHOLINE DIETARY ALLERGIES - EGGS FAMILY HISTORY 1. Myocardial infarction 2. Parkinson's disease, 3. Breast cancer. SOCIAL HISTORY She was a prior tobacco user, has not smoked since 2010. She is and she has a supportive who is present for our discussion. REVIEW OF SYSTEMS As per history of present illness. She has not had any bright red blood or melanotic stool. She denies any vaginal bleeding, except for light spotting after the pelvic exam was done yesterday. Prior to that, she denies any bleeding but states that she did have a vaginal discharge in the recent past but she thought that had resolved. No hematuria. She has not had any febrile illness. No one else in the family has been ill. She states that she did have follow up pelvic exam and reportedly normal Pap smear periodically since the time we saw her last in 2005, although additional details could not be provided. OBJECTIVE CAT scan as reported. Pelvic ultrasound measured the mass to be more like 6 cm, heterogeneous, involving the vaginal cuff, possibly arising from the vaginal cuff. It appeared to be invading the bladder but did not appear to be arising from the bladder. The uterus, cervix, tubes and ovaries appeared to be surgically absent. The impression that it did not seem likely to be arising from the bladder was actually combined with the impression from the CAT scan interpretation. LABORATORY DATA Her white count 12.1, H&H 11.5 and 35, platelets 349. Electrolytes, renal function preserved with a BUN and creatinine of 15 and 0.86, potassium 3.8. Tumor markers include alpha-fetoprotein, CEA, CA-125 all of which are within normal limits. PHYSICAL EXAMINATION VITAL SIGNS: Afebrile, pulse 94, respirations 20, blood pressure 137/65, O2 saturations greater than or equal to 93%. GENERAL: Alert and oriented x3. She is uncomfortable but in no acute distress. Her respirations are unlabored. LYMPH NODES: Lymph node survey is negative. LUNG: Clear. CARDIOVASCULAR: Regular rate and rhythm. BACK: No CVA tenderness or spinal point tenderness. ABDOMEN: Slightly distended, although she is uncomfortable. There is no rebound or guarding. She is mildly tender diffusely without focal tenderness. Bowel sounds are hypoactive. BLEACH PACKER: Exam deferred until exam under anesthesia. EXTREMITIES: No palpable cords. Time is spent in discussion with her and her reviewing the findings in her case to date. The discussion is as summarized above. Additional questions were asked and answered and she certainly states that she is uncomfortable from a GI standpoint and is pleased to move forward with anything that could alleviate her symptoms. Again I explained we will defer to Dr. Toledo's judgment and guidance and, if logistically possible, I will join him in the operating room to do an exam, obtain tissue biopsies and if not certainly Dr. Toledo would get tissue biopsies to try to clarify the diagnosis. Again, emphasized that this is the information gathering initially from that standpoint and whenever Dr. Toledo recommends would be to try to palliate her symptoms from the intestinal obstruction. More questions were asked and answered. They expressed good understanding. ASSESSMENT 1. Central pelvic mass affecting vagina, bladder, colon presenting clinically with a colonic obstruction or near obstruction. 2. Extensive discussion. PLAN As outlined above, we will follow guidance and recommendations as made by Dr. Maggie Toledo, colorectal surgery. If logistically possible, we will coordinate with exam under anesthesia, biopsies, possible cystoscopy and whatever steps are recommended by Dr. Toledo. Thank for the consultation. MD SEUN Clifford/ /4:05 PM /5:36 PM
[2017-01-09 20:00] VITALS: BP 159/71; PULSE 95; RESP 19; TEMP 98.6; O2SAT 94
[2017-01-10] VITALS: BP 133/65; PULSE 100; RESP 23; TEMP 97.8; O2SAT 93
[2017-01-10] MEDS: MORPHINE SULFATE 2 MG/ML INJ IV PUSH PRN ×4 (01:53→14:21)
[2017-01-10] MEDS ORDERED: CHLORHEXIDINE GLUCONATE 2 % 1 PACK (2 CLOTHS) TOPICAL PRN (02:15)
[2017-01-10] MEDS ORDERED: SODIUM CHLORID 0.9% 500 ML IV PRN (02:15)
[2017-01-10] MEDS ORDERED: LACTATED RINGER'S 1000 ML IV PRN (02:15)
[2017-01-10] MEDS ORDERED: POVIDONE IODINE 5% (ANTISEPSIS KIT) 4 APPLICATIONS EACH NARE PRN (02:15)
[2017-01-10] MEDS: SOD PHOSPHATE/SOD BIPHOSPHATE (ADULT) ENEMA 133ML RECTAL SCH ×2 (02:41→06:05)
[2017-01-10 04:00] VITALS: BP 163/72; PULSE 111; RESP 21; TEMP 97.8; O2SAT 93
[2017-01-10] MEDS: NS + KCL 20 MEQ INJ 1,000 ML IV SCH ×2 (04:20→18:53)
--- NOTE | 2017-01-10 05:19 | MB ---
cc: MAGGIE TOLEDO M.D., KELLY L. MD BRAITHWAITE, RICHARD L. M.D. DATE OF CONSULTATION January 09, 2017 REASON FOR CONSULTATION Pelvic mass. Colonic obstruction. HISTORY OF PRESENT ILLNESS Ms. Escobar is a 71-year-old female who had a hysterectomy several years ago for benign disease, some question as to some atypical cells but no cancer. The patient had been doing well over the last several years complaining of several days of abdominal pain with decreased appetite and pelvic pressure. The patient's pain increased and became much more severe to the point where she came to the emergency room last evening. Bowel movements have been decreasing and slightly smaller caliber. Abdomen has become more distended. She has been nauseous but denies any emesis. Workup in the emergency room showed a mass sort of centrally located around the vaginal apex involving perhaps the bladder and maybe obstructing the rectosigmoid colon. She denies any significant rectal bleeding or diarrhea. She also has had very little vaginal drainage or discharge. The patient was admitted for additional workup and evaluation. PAST MEDICAL HISTORY Please see history and physical for more complete past medical and surgical history. PERTINENT PHYSICAL GENERAL: A very pleasant, well-developed female in no acute distress. HEENT: Remarkable for pale but dry membranes, nonicteric sclerae. NECK: Supple without gross adenopathy. CHEST: Relatively clear. Slightly diminished in the bases. HEART: Regular rhythm. ABDOMEN: Firm and a little distended. Quite a bit of tympany. No rebound or guarding or any masses palpable. RECTAL: Exam deferred. CYBER SECURITY MANAGER EXAM: Deferred. EXTREMITIES: No cyanosis or clubbing and minimal pedal edema. LABORATORY FINDINGS Hemoglobin was 11.5, platelet count was 349,000. Electrolytes appear normal with a BUN of 15, creatinine of 0.9. IMAGING STUDIES CAT scan reviewed showing a mass at the apex of the vagina which appeared to be invading into the bladder as well as encompassing the sigmoid colon with at least external compression. No other metastatic disease was noted. IMPRESSION AND PLAN A 71-year-old female status post hysterectomy with what appears to be a centrally located pelvic mass invading the bladder and probably obstructing the sigmoid colon. Discussed at length with Dr. Rowe and Dr. Bello. We will try to get her cleaned out tonight and in conjunction with Dr. Molpus bring her to the OR for vaginal exam, cystoscopy, sigmoidoscopy and perhaps placement of a wall stent or diverting loop colostomy to relieve the colonic obstruction, then depending upon the final pathology report could either plan on preop radiation with or without chemotherapy prior to trying to resect this fairly advanced, locally invasive tumor. The risks, benefits and alternatives were discussed at great length with the patient and we will try to set up tomorrow as soon as possible. MD PARTH Herron/OSKAR /11:30 PM /5:06 AM
[2017-01-10 08:00] VITALS: BP_SYST 129; BP_SYST 142; BP_DIAS 80; BP_DIAS 85; PULSE 105; PULSE 85; RESP 18; TEMP 97.8; O2SAT 92; O2SAT 97
--- NOTE | 2017-01-10 08:45 | RADRPT ---
EXAM DATE/TIME: 01/10/2017 08:01 [place] COMPARISON: No previous studies available for comparison. INDICATIONS : Evaluate for pneumonia, pneumothorax, or communicable disease. Pre op for pelvic mass removal. MEDICAL HISTORY : Hypertension. Bilateral oophorectomy. Sigmoid obstruction. Renal disease. SURGICAL HISTORY : Cervical biopsy. Cervical conization. Colonoscopy. ENCOUNTER: Subsequent ACUITY: 4 - 6 days PAIN SCORE: 0/10 LOCATION: chest FINDINGS: PA and lateral views of the chest demonstrate small left pleural effusion and minimal left basilar de nsity. Right lung is clear. Heart normal in size. Osseous structures are intact. CONCLUSION: Small left pleural effusion and left basilar density, likely atelectasis/scarring. Demond Landon MD on January 10, 2017 at 8:39 Board Certified Radiologist. This report was verified electronically.
--- NOTE | 2017-01-10 09:43 | HHI.PR ---
Subjective Remarks passing stool with the enemas Objective Vitals heart reg lung cta abd distended ext no edema Vital Signs Date Time Temp Pulse Resp B/P (MAP) Pulse Ox O2 Delivery O2 Flow Rate FiO2 01/10/17 04:00 97.8 111 21 163/72 (102) 93 01/10/17 00:00 97.8 100 23 133/65 (87) 93 01/09/17 21:20 Room Air 01/09/17 20:00 98.6 95 19 159/71 (100) 94 01/09/17 16:00 98.2 94 20 156/77 (103) 97 01/09/17 13:39 98.1 99 20 144/70 (94) 94 Result Diagram: 01/08/17 0638 01/08/17 0638 Imaging Last 72 hours Impressions Abdomen/Pelvis CT 01/07/17 1235 Signed Impressions: Service Date/Time: Saturday, January 07, 2017 14:35 - CONCLUSION: 1. There is a pelvis mass that is obstructing the distal sigmoid colon. It measures approximately 4.2 x 2.8 cm. The colon proximal to this portion is dilated and filled with fluid and fecal material. 2. The pelvis mass abuts the vaginal apex , protrudes into the urinary bladder, and is contiguous with the sigmoid colon mass. Therefore, this could represent a colon cancer that has secondarily invaded the surrounding structures or potentially a [employer] malignancy that has secondarily invaded the surrounding structures. Given that the epicenter of the mass is mostly outside of the urinary bladder, it is less likely bladder in origin. 3. Nonacute findings include small hiatal hernia and mild atherosclerotic disease. Jorge Gleason MD A/P Problem List: (1) Pelvic mass in female ICD Codes: R19.00 - Intra-abdominal and pelvic swelling, mass and lump, unspecified site Status: Acute Plan: 1. pelvic mass centrally located with some apparent sigmoid colon obstruction unclear if it arrises from the vaginal cuff vs colon. Long discussion with dr Mansfield and Soledad Pt to OR today for exam of colon/bladder/vaginal canal with possible stent vs colostomy.. Further decisions based on path reports. cont NS with kcl prn pain control npo..so prn iv bp control dvt prophylaxis. (2) Large bowel obstruction ICD Codes: K56.609 - Unspecified intestinal obstruction, unspecified as to partial versus complete obstruction Status: Acute (3) Anxiety ICD Codes: F41.9 - Anxiety disorder, unspecified Status: Chronic Plan: Alprazolam as needed. (4) Hyperlipidemia ICD Codes: E78.5 - Hyperlipidemia, unspecified Status: Chronic Plan: Follow as outpatient. Juve Bello MD Jan 10, 2017 09:43
[2017-01-10] MEDS: ONDANSETRON HCL 4 MG/2 ML VIAL IV PUSH PRN (10:23)
[2017-01-10 12:00] VITALS: BP 149/70; PULSE 80; RESP 18; TEMP 98.4; O2SAT 93
[2017-01-10] MEDS ORDERED: metroNIDAZOLE 500 MG INJ 100 ML IV ONE (14:15)
[2017-01-10] MEDS ORDERED: ceFAZolin INJ 1,000 MG VIAL ONE (14:15)
[2017-01-10] MEDS ORDERED: LIDOCAINE 1%/EPINEPHrine 1:100,000 SOLN 50 ML VIAL ONE (14:51)
[2017-01-10] MEDS ORDERED: ETOMIDATE 20 MG/10 ML VIAL ONE (15:50)
[2017-01-10] MEDS ORDERED: ACETAMINOPHEN 1000 MG/100 ML 100 ML IV ONE (15:50)
[2017-01-10] MEDS ORDERED: SUGAMMADEX SODIUM 200 MG/2 ML VIAL IV PUSH ONE ×2 (15:50)
--- NOTE | 2017-01-10 16:34 | EKG ---
Date Performed: 01/09/2017 Time Performed: 11:13:57 PTAGE: 71 years EKG: Sinus rhythm WITH OCCASIONAL SUPRAVENTRICULAR PREMATURE COMPLEXES BORDERLINE ECG Since PREVIOUS TRACING , PACs are new and heart rate is faster. PREVIOUS TRACIN07/27/2012 08 .45 DOCTOR: Juve Morris Interpretating Date/Time 01/10/2017 16:32:44
[2017-01-10] MEDS ORDERED: FERRIC SUBSULFATE 8 ML TOP SOLN TOPICAL ONE (17:35)
[2017-01-10 18:00] VITALS: BP 114/70; PULSE 69; RESP 16; TEMP 98.1; O2SAT 92
[2017-01-10] MEDS ORDERED: *ONDANSETRON 4 MG VIAL PERIprocedural Use ONLY ONE (18:33)
[2017-01-10] MEDS ORDERED: *PROMETHAZINE 25 MG/ML VIAL PERIprocedural use ONLY ONE (18:37)
[2017-01-10] MEDS ORDERED: *morphine SULFATE 8 MG/ML PERIprocedure ONLY ONE (19:01)
[2017-01-10] MEDS ORDERED: DO NOT ADM ANY ANTICOAGULANT DRUGS PRN (19:15)
[2017-01-10] MEDS: PANTOPRAZOLE SODIUM 40 MG VIAL IV PUSH SCH (20:47)
[2017-01-10] MEDS: MORPHINE SULFATE 4 MG/ML INJ IV PUSH PRN (20:59)
[2017-01-10 21:16] VITALS: BP 142/64; PULSE 80; RESP 20; TEMP 96; O2SAT 93
[2017-01-11] MEDS: metroNIDAZOLE 500 MG INJ 100 ML IV SCH ×3 (00:28→15:40)
[2017-01-11] MEDS: MORPHINE SULFATE 4 MG/ML INJ IV PUSH PRN ×7 (00:52→23:18)
[2017-01-11] MEDS: ONDANSETRON HCL 4 MG/2 ML VIAL IV PUSH PRN ×4 (00:52→19:39)
[2017-01-11 00:54] VITALS: BP 185/72; PULSE 88; RESP 20; TEMP 96.9; O2SAT 92
[2017-01-11 08:00] VITALS: BP 161/75; PULSE 107; RESP 20; TEMP 98; O2SAT 94
--- NOTE | 2017-01-11 09:29 | HHI.PR ---
Subjective Remarks Patient complains that the pain medication is not lasting long enough She is having pain in the upper abdomen around where her colostomy is and related to her surgical incisions Afebrile Objective Vitals Vital Signs Date Time Temp Pulse Resp B/P (MAP) Pulse Ox O2 Delivery O2 Flow Rate FiO2 01/11/17 08:00 98.0 107 20 161/75 (103) 94 01/11/17 00:54 96.9 88 20 185/72 (109) 92 01/10/17 21:16 96.0 80 20 142/64 (90) 93 01/10/17 21:04 93 Nasal Cannula 3.00 01/10/17 19:15 79 16 127/60 (82) 95 Nasal Cannula 4 01/10/17 19:00 84 14 139/59 (85) 95 Nasal Cannula 4 01/10/17 18:45 91 18 149/67 (94) 93 Nasal Cannula 4 01/10/17 18:30 82 18 141/61 (87) 97 Nasal Cannula 4 01/10/17 18:20 98.2 86 23 153/67 (95) 96 Simple Mask 6 01/10/17 18:00 98.1 69 16 114/70 (85) 92 01/10/17 12:00 98.4 80 18 149/70 (96) 93 01/11/17 01/11/17 01/12/17 15:00 23:00 07:00 Intake Total 120 ml Balance 120 ml Intake Oral 120 ml Result Diagram: 01/08/17 0638 01/08/17 0638 Imaging Last 72 hours Impressions Abdomen/Pelvis CT 01/07/17 1235 Signed Impressions: Service Date/Time: Saturday, January 07, 2017 14:35 - CONCLUSION: 1. There is a pelvis mass that is obstructing the distal sigmoid colon. It measures approximately 4.2 x 2.8 cm. The colon proximal to this portion is dilated and filled with fluid and fecal material. 2. The pelvis mass abuts the vaginal apex , protrudes into the urinary bladder, and is contiguous with the sigmoid colon mass. Therefore, this could represent a colon cancer that has secondarily invaded the surrounding structures or potentially a LABOR ECONOMICS TEACHER malignancy that has secondarily invaded the surrounding structures. Given that the epicenter of the mass is mostly outside of the urinary bladder, it is less likely bladder in origin. 3. Nonacute findings include small hiatal hernia and mild atherosclerotic disease. Jorge Gleason MD Objective Remarks General: NAD, AAOx3 Chest: CTA Cardiac: Regular Abd: +BS, soft, colostomy in RUQ with stool present in the back, bandages are c/ d/i Ext: No edema A/P Problem List: (1) Pelvic mass in female ICD Codes: R19.00 - Intra-abdominal and pelvic swelling, mass and lump, unspecified site Status: Acute Plan: Pt is a 71 y/o female with anxiety, hyperlipidemia and CKD, stage 3 who [place] [facility] [place] of Abd pain and constipation Pelvic Mass - Pt presented to abdominal pain and constipation. - CT abd/pelvis in the ER revealed a 4.2 x 2.8 cm pelvic mass with colonic obstruction due to impingement by the mass. Mass etiology somewhat unclear but not thought to be of bladder origin. More likely colonic or possibly remnant LABOR ECONOMICS TEACHER tissue origin. - The pelvic mass centrally located with some apparent sigmoid colon obstruction unclear if it arises from the vaginal cuff vs colon. - Appreciate CRS and LABOR ECONOMICS TEACHER Surgery involvement. - Pt underwent vaginal exploration under anesthesia, cystoscopy, sigmoidoscopy, and exploratory laparotomy with loop colostomy placement on 01/10/[address] and Dr. Rowe - Further decisions based on path reports. - Cont NS with KCL - Pain control PRN, increase frequency of Morphine to Q3H today - Pt on clear liquid diet - DVT prophylaxis. (2) Large bowel obstruction ICD Codes: K56.609 - Unspecified intestinal obstruction, unspecified as to partial versus complete obstruction Status: Acute (3) Anxiety ICD Codes: F41.9 - Anxiety disorder, unspecified Status: Chronic Plan: Alprazolam as needed. (4) Hyperlipidemia ICD Codes: E78.5 - Hyperlipidemia, unspecified Status: Chronic Plan: Follow as outpatient. Assessment and Plan Patient examined. Assessment and plan formulated with Lacy Cueva PA-C. I agree with the above. 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 ostomy placed. radiation consulted today . pain control Lacy Cueva Jan 11, 2017 09:29 Juve Bello MD Jan 11, 2017 13:09
[2017-01-11] MEDS: PANTOPRAZOLE SODIUM 40 MG VIAL IV PUSH SCH (09:50)
[2017-01-11 12:00] VITALS: BP 135/61; PULSE 122; RESP 20; TEMP 97.7; O2SAT 94
--- NOTE | 2017-01-11 14:51 | MB ---
cc: MAGGIE TOLEDO M.D., RONALD J. M.D. MOLPUS, KELLY L. MD DRIGGERS, WESLEY M.D. DATE OF CONSULTATION: 01/11/2017 DATE OF : 1945. HISTORY OF PRESENT ILLNESS This is a 71-year-old female who reports having had a hysterectomy performed at [facility] in the early . Today she was apparently seen several years later for a possible abnormality on vaginal exam but appears to been lost to followup. She is admitted to the hospital through the emergency room complaining of severe abdominal pain. This was associated with some nausea and no emesis and difficulty having bowel motions. Workup in the emergency room including a CT scan showed a central pelvic mass measuring 4.2 cm. It appears to be involving the vagina as well as the bladder and sigmoid colon. This lady was taken to the operating room yesterday. It is my understanding that both Dr. Toledo and Dr. Rowe were present. I was able to discuss this with Dr. Toledo today. I am informed that she was found to have disease at the top of her vagina. Biopsy with frozen sections was consistent with a squamous cell carcinoma, however out the pathology is still pending final review. At cystoscopy she was found to have disease invading the bladder and she was known to have an obstruction of her sigmoid colon. She underwent a loop colostomy and is recovering from this today. This lady does report that she had some vaginal bleeding but it was approximately a year ago. Again she had a hysterectomy with bilateral salpingo-oophorectomies for cervical dysplasia in 2004 with apparently no history of cancer. PAST MEDICAL AND SURGICAL HISTORY Includes elevated lipids with a pseudocholinesterase deficiency Vitamin D deficiency History of esophagitis History of vaginal dysplasia Chronic kidney disease stage III A hysterectomy with bilateral salpingo-oophorectomies, for cervical dysplasia in 2004. She had vaginal dysplasia at the cuff and was seen in 2005 apparently not since then. ALLERGIES PENICILLIN SUCCINYLCHOLINE DIETARY ALLERGIES/EGGS. FAMILY HISTORY AND SOCIAL HISTORY She is . Her is well. They have no children and her sister is coming down from [place] at the present time to help. There is history of cardiac disease and breast cancer in the family. She is a prior smoker, stopping in 2010. REVIEW OF SYSTEMS IN GENERAL: This lady presented with abdominal pain and difficulty with bowel motions and was found to have a bowel obstruction. She had vaginal bleeding approximately a year ago but not recently. HEAD, EYES, EARS, NOSE, AND THROAT: She denies Head, eyes, ears, nose and Throat: Complaints. CARDIOVASCULAR SYSTEM: She denies cardiovascular. RESPIRATORY: Denies complaints. GENITOURINARY: She specifically denies genitourinary symptoms of dysuria, hematuria, urgency or incontinence. EXTREMITIES: No ankle edema, power and tone are normal. PHYSICAL EXAMINATION: IN GENERAL: On exam today she looks well. She is resting comfortably in bed and no immediate distress. VITAL SIGNS: Vital signs indicate she was afebrile. Pulse of 100 regular, respiratory rate of 20, blood pressure 135/61. Her O2 sat on room air was 94%. HEAD, EYES, EARS, NOSE, AND THROAT: There is no jaundice. Her conjunctive and eyelids were normal. She had full EOMs. Oral cavity was normal. No adenopathy in her head or neck. LUNGS: Her lung weaver were clear without effusion. HEART: Heart sounds were normal. ABDOMEN: She has a loop colostomy recently created yesterday so they are still abdominal tenderness, making her abdomen difficult to examine. EXTREMITIES: There is no ankle edema. REVIEW OF IMAGING STUDIES This lady's had a pelvic ultrasound and chest x-ray which reported a small left pleural effusion and left basilar density, likely atelectatic. She has had a abdomen and pelvis CT scan. This reported small hiatal hernia. There is a caliber change in the distal sigmoid colon where there is an obstructing mass measuring 4.2 X 2.8 cm inferior the mass is contiguous with the vaginal apex and a mass protruding into the posterior urinary bladder. The rectum is decompressed and there is a trace free fluid in the pelvis. No regional lymphadenopathy is identified and there is no free intraabdominal air. There is no lymphadenopathy in the retroperitoneum. There were no other findings. LABORATORY FINDINGS: Reveal a white count of 12,100, hemoglobin of 11/05, platelet count of 349,000. Her creatinine was 0.86, BUN 15. Her CA-125 was 18.5. AFP 3.5. CEA 1.0 DISCUSSION/PLAN: This lady has very extensive disease involving her upper vagina invading the bladder and at least compressing the bowel has understand it did not involve the lining of the bowel. Unfortunately surgical approach would possibly require an exaggeration or at least an anterior exaggeration. It would be my hope that we can treat her with combined radiation treatment and chemotherapy and then reassess her and decide her surgical needs. I think she is a she will certainly need a colostomy throughout this and this is already been created. She may need a surgical resection of the bowel no matter how well she responds but I would like to see if we can attempt to save her bladder if at all possible. I have discussed this with her. I will need to discuss this in more detail with Dr. Rowe and we will coordinate care for her. It would be valuable as far as assessing the disease in her pelvis to have an MR scan to help with radiation planning. MD CITLALI Lopez/lynette /1:20 PM /2:44 PM
[2017-01-11 15:57] VITALS: BP 163/73; PULSE 100; RESP 20; TEMP 99; O2SAT 95
--- NOTE | 2017-01-11 16:57 | MP ---
cc: MAGGIE TOLEDO M.D. DATE OF SURGERY: 01/10/2017. PREOPERATIVE DIAGNOSIS: Colonic obstruction and pelvic mass. POSTOPERATIVE DIAGNOSIS Obstructing her colonic obstruction due to pelvic mass. PROCEDURE PERFORMED: 1. Flexible sigmoidoscopy to the sigmoid colon. 2. Exploratory laparotomy and a loop transverse colostomy. SURGEON: Maggie Toledo MD. MGMT SPECIALIST: Anthony Dewey MD. DESCRIPTION OF THE PROCEDURE IN DETAIL: The patient was placed in the supine position. After adequate general anesthesia, her legs were placed in [place] stirrups and supported appropriately. Please refer to Dr. Rowe's dictation for the first part of the procedure. After he finished, the undersigned did a rectal exam confirming a rectal mass probably anterior to the rectum. The Olympus colonoscope was then inserted and under direct vision through the rectum and the lower rectosigmoid, there appeared to be extrinsic compression of the colon at this point. There was also quite a bit of stool present which was irrigated out and cleansed. There did not appear to be any intraluminal cancer but the lumen of the colon was definitely compressed and obstructed due to the mass. Next, the abdomen was prepped with Betadine solution and draped in the usual sterile fashion. With Dr. Dewey's assistance, a small midline incision was made entering the abdominal cavity under direct vision. The colon was noted right underneath the omentum and it was very dilated and full of a lot of gas and liquid stool. The omentum was divided and the colon brought up through the incision, mobilizing it off the gastrocolic omentum and freeing the stomach opening up the lesser sac. After adequate mobilization, a circular stab wound was created in the right side of the abdomen and the loop brought up through the stab wound without tension and with good blood supply. An avascular plane was created in the mesentery and a colostomy bar placed. The midline incision was then closed anatomically reapproximating the midline fascia with a running PDS suture. Subcu tissues irrigated copiously and the skin closed with a running subcuticular Vicryl suture. Wound area washed with normal saline and dried, sterile dressing of Telfa and gauze applied. The transverse enterotomy was then made in the loop colostomy and both proximal limbs matured in the usual Luz fashion by placing a row of interrupted chromic catgut sutures around the circumference. At completion, the colostomy did appear to be viable and was patent through both fascial limbs. Sterile colostomy appliance fitted over the new stoma. The patient tolerated the procedure quite well and was brought to the recovery room in stable condition. MD PARTH Herron/WESTLEY /4:48 PM /4:55 PM
[2017-01-11] MEDS: NS + KCL 20 MEQ INJ 1,000 ML IV SCH ×3 (17:19→23:19)
[2017-01-11 20:00] VITALS: BP 151/67; PULSE 105; RESP 18; TEMP 98.8; O2SAT 95
[2017-01-12] VITALS (7 sets, daily range): BP systolic 145–177; BP diastolic 78–81; PULSE 104–128; RESP 17–18; TEMP 97.3–98.4; O2SAT 85–93
[2017-01-12] MEDS: ONDANSETRON HCL 4 MG/2 ML VIAL IV PUSH PRN ×3 (03:40→19:59)
[2017-01-12] MEDS: MORPHINE SULFATE 4 MG/ML INJ IV PUSH PRN ×4 (03:40→20:00)
[2017-01-12 04:56] LABS: BICARBONATE 23.4 MEQ/L (21.0-32.0); POTASSIUM 4.3 MEQ/L (3.5-5.1)
[2017-01-12 05:15] LABS: CALCIUM-PROTEIN CORRECTED 8.2 MG/DL (8.5-10.1)
[2017-01-12 05:32] LABS: AUTOMATED NEUTROPHIL # 10.8 TH/MM3 (1.8-7.7); BASOPHIL % 0.3 % (0.0-2.0); EOSINOPHIL # 0.2 TH/MM3 (0-0.4); EOSINOPHIL % 1.4 % (0.0-4.0); HEMATOCRIT 30.2 % (35.0-46.0); HEMO FLAGS DIFF FINAL; LYMPH % 6.4 % (9.0-44.0); LYMPHOCYTE # 0.8 TH/MM3 (1.0-4.8); MEAN CELL VOLUME 87.5 FL (80.0-100.0); MEAN CORPUSCULAR HEMOGLOBIN 29.1 PG (27.0-34.0); MEAN CORPUSCULAR HGB CONC 33.3 % (32.0-36.0); MONO % 7.7 % (0.0-8.0); NEUT % 84.2 % (16.0-70.0); PLATELET COUNT 150 TH/MM3 (150-450); RED BLOOD COUNT 3.45 MIL/MM3 (4.00-5.30); RED CELL DISTRIBUTION WIDTH 14.4 % (11.6-17.2); WHITE BLOOD COUNT 12.8 TH/MM3 (4.0-11.0)
--- NOTE | 2017-01-12 07:53 | HHI.PR ---
Subjective Remarks Pt went for MRI of the pelvis and mapping for radiation this morning She has been requiring more supplemental O2 this morning, 4L When she returned to the floor from the APOLLO she tried walking to the bathroom without her oxygen and she had a syncopal episode and desaturated into the 60's Pt currently on 5L via Ventimask No cough or congestion Her IVF were decreased this morning to 84mL/hr Objective Vitals Vital Signs Date Time Temp Pulse Resp B/P (MAP) Pulse Ox O2 Delivery O2 Flow Rate FiO2 01/12/17 00:22 98.3 104 18 165/79 (107) 93 01/11/17 20:00 98.8 105 18 151/67 (95) 95 01/11/17 19:48 Nasal Cannula 4.00 01/11/17 15:57 99.0 100 20 163/73 (103) 95 01/11/17 12:00 97.7 122 20 135/61 (85) 94 01/11/17 08:00 Nasal Cannula 4.00 01/11/17 08:00 98.0 107 20 161/75 (103) 94 Result Diagram: 01/12/17 0407 01/12/17 0407 Other Results Laboratory Tests Test 01/12/17 04:07 White Blood Count 12.8 TH/MM3 Red Blood Count 3.45 MIL/MM3 Hemoglobin 10.1 GM/DL Hematocrit 30.2 % Mean Corpuscular Volume 87.5 FL Mean Corpuscular Hemoglobin 29.1 PG Mean Corpuscular Hemoglobin Concent 33.3 % Red Cell Distribution Width 14.4 % Platelet Count 150 TH/MM3 Mean Platelet Volume 7.6 FL Neutrophils (%) (Auto) 84.2 % Lymphocytes (%) (Auto) 6.4 % Monocytes (%) (Auto) 7.7 % Eosinophils (%) (Auto) 1.4 % Basophils (%) (Auto) 0.3 % Neutrophils # (Auto) 10.8 TH/MM3 Lymphocytes # (Auto) 0.8 TH/MM3 Monocytes # (Auto) 1.0 TH/MM3 Eosinophils # (Auto) 0.2 TH/MM3 Basophils # (Auto) 0.0 TH/MM3 CBC Comment DIFF FINAL Differential Comment Blood Urea Nitrogen 9 MG/DL Creatinine 0.69 MG/DL Random Glucose 89 MG/DL Total Protein 5.6 GM/DL Calcium Level 7.4 MG/DL Sodium Level 133 MEQ/L Potassium Level 4.3 MEQ/L Chloride Level 103 MEQ/L Carbon Dioxide Level 23.4 MEQ/L Anion Gap 7 MEQ/L Estimat Glomerular Filtration Rate 83 ML/MIN Protein Corrected Calcium 8.2 MG/DL Imaging Last Impressions Pelvis MRI 01/12/17 0000 Signed Impressions: Service Date/Time: Thursday, January 12, 2017 07:21 - CONCLUSION: 1. Large, irregular malignant appearing low midline pelvic mass as described above. I believe this probably arises from the sigmoid colon but a vaginal origin is not entirely excludable. The degree of associated colonic obstruction appears modestly improved since the CT. 2. Broad area of posterior bladder invasion noted including close to the bilateral ureterovesical junctions and the proximal urethra. Urinary bladder is now decompressed with a Fields catheter. 3. No lymphadenopathy. No evidence of bony metastatic disease. 4. Diffuse soft tissue edema now present, presumably radiation therapy related. 5. Mild right and moderate left hip' right is incidentally noted. Jorge Arnett MD Chest X-Ray 01/10/17 0000 Signed Impressions: Service Date/Time: Tuesday, January 10, 2017 08:01 - CONCLUSION: Small left pleural effusion and left basilar density, likely atelectasis/scarring. Demond Landon MD Pelvis Ultrasound 01/08/17 0000 Signed Impressions: Service Date/Time: Sunday, January 08, 2017 08:52 - CONCLUSION: Ultrasound confirms mass in the pelvis and location the vaginal cuff. MRI is suggested. Aj Jarrett MD FACR Abdomen/Pelvis CT 01/07/17 1235 Signed Impressions: Service Date/Time: Saturday, January 07, 2017 14:35 - CONCLUSION: 1. There is a pelvis mass that is obstructing the distal sigmoid colon. It measures approximately 4.2 x 2.8 cm. The colon proximal to this portion is dilated and filled with fluid and fecal material. 2. The pelvis mass abuts the vaginal apex , protrudes into the urinary bladder, and is contiguous with the sigmoid colon mass. Therefore, this could represent a colon cancer that has secondarily invaded the surrounding structures or potentially a BELT BACK OPERATOR malignancy that has secondarily invaded the surrounding structures. Given that the epicenter of the mass is mostly outside of the urinary bladder, it is less likely bladder in origin. 3. Nonacute findings include small hiatal hernia and mild atherosclerotic disease. Jorge Gleason MD Last 72 hours Impressions Abdomen/Pelvis CT 01/07/17 1235 Signed Impressions: Service Date/Time: Saturday, January 07, 2017 14:35 - CONCLUSION: 1. There is a pelvis mass that is obstructing the distal sigmoid colon. It measures approximately 4.2 x 2.8 cm. The colon proximal to this portion is dilated and filled with fluid and fecal material. 2. The pelvis mass abuts the vaginal apex , protrudes into the urinary bladder, and is contiguous with the sigmoid colon mass. Therefore, this could represent a colon cancer that has secondarily invaded the surrounding structures or potentially a BELT BACK OPERATOR malignancy that has secondarily invaded the surrounding structures. Given that the epicenter of the mass is mostly outside of the urinary bladder, it is less likely bladder in origin. 3. Nonacute findings include small hiatal hernia and mild atherosclerotic disease. Jorge Gleason MD Objective Remarks General: NAD, AAOx3 Chest: Crackles at the bases Cardiac: Regular Abd: +BS, soft, colostomy in RUQ with stool present in the back, midline incision is well approximated and no erythema or drainage noted Ext: No edema A/P Problem List: (1) Pelvic mass in female ICD Codes: R19.00 - Intra-abdominal and pelvic swelling, mass and lump, unspecified site Status: Acute Plan: Pt is a 71 y/o female with anxiety, hyperlipidemia and CKD, stage 3 who presented to the ED at [facility] [place] with complaints of Abd pain and constipation Pelvic Mass - Pt presented to abdominal pain and constipation. - CT abd/pelvis in the ER revealed a 4.2 x 2.8 cm pelvic mass with colonic obstruction due to impingement by the mass. Mass etiology somewhat unclear but not thought to be of bladder origin. More likely colonic or possibly remnant BELT BACK OPERATOR tissue origin. - The pelvic mass centrally located with some apparent sigmoid colon obstruction unclear if it arises from the vaginal cuff vs colon. - Appreciate CRS and BELT BACK OPERATOR Surgery involvement. - Pt underwent vaginal exploration under anesthesia, cystoscopy, sigmoidoscopy, and exploratory laparotomy with loop colostomy placement on 01/10/[address] Mansfield and Dr. Rowe. She was found to have disease at the top of the vagina which is invading bladder and obstructing the colon. - Intra-operative frozen sections were consistent with squamous cell carcinoma but final pathology is pending. - Radiation Oncology is following - Pain control PRN, increased frequency of Morphine to Q3H on 01/11 due to uncontrolled pain - Pts diet advanced to regular consistency - BP has been elevated likely secondary to pain. Pt does not have hx of HTN. Clonidine and Vasotec PRN ordered - MRI Pelvis (01/12/17) --> Large, irregular malignant appearing low midline pelvic mass. The degree of associated colonic obstruction appears modestly improved since the CT. Broad area of posterior bladder invasion noted including close to the bilateral ureterovesical junctions and the proximal urethra. Urinary bladder is now decompressed with a Fields catheter. No lymphadenopathy. No evidence of bony metastatic disease. Diffuse soft tissue edema now present, presumably radiation therapy related. Mild right and moderate left hip' right is incidentally noted. - Will consult Medical Oncology tomorrow Hypoxia Syncopal episode - CXR - Stop fluids if pt is tolerating her diet - Supplemental O2 as needed - No wheezing on exam - Telemetry - DVT prophylaxis with Lovenox (2) Large bowel obstruction ICD Codes: K56.609 - Unspecified intestinal obstruction, unspecified as to partial versus complete obstruction Status: Acute Plan: - As above (3) Anxiety ICD Codes: F41.9 - Anxiety disorder, unspecified Status: Chronic Plan: - Alprazolam as needed. (4) Hyperlipidemia ICD Codes: E78.5 - Hyperlipidemia, unspecified Status: Chronic Plan: - Follow as outpatient. Lacy Cueva Jan 12, 2017 07:53
[2017-01-12] MEDS ORDERED: GADODIAMIDE PF 287 MG/ML 20 ML VIAL (for RAD MRI) IVCONTRAST ONE (08:46)
[2017-01-12] MEDS: PANTOPRAZOLE SODIUM 40 MG VIAL IV PUSH SCH (08:53)
[2017-01-12] MEDS: NS + KCL 20 MEQ INJ 1,000 ML IV SCH (08:54)
--- NOTE | 2017-01-12 09:00 | RADRPT ---
EXAM DATE/TIME: 01/12/2017 07:21 [facility] COMPARISON: CT ABDOMEN & PELVIS W CONTRAST, January 07, 2017, 14:35. INDICATIONS : Pelvic mass with bladder invasion. CONTRAST: 15 cc Omniscan (gadodiamide) IV MEDICAL HISTORY : Hypertension. SURGICAL HISTORY : Hysterectomy. Colostomy. ENCOUNTER: Initial ACUITY: 1 day PAIN SCORE: 5/10 LOCATION: pelvis TECHNIQUE: Multiplanar, multisequence magnetic resonance imaging of the pelvis was performed. FINDINGS: A very irregular mass is seen in the midline low pelvic cavity. The mass measures approximately 5.1 x 5.3 cm in greatest transaxial dimension and 6.1 cm craniocaudal. It engulfs and probably arises from the sigmoid colon. There is distention of the upstream colon but not as severe as on the comparison CT. There is hysterectomy. The upper half of the vagina is invaded by the mass. The mass also invades the posterior margin of the urinary bladder, close to but not substantially of the ureterovesical juncti on regions. The bladder invasion is close to the outlet. A Fields catheter is now present. I don't see a focal bone lesion. There is bilateral hip osteoarthritis, mild on the right and moderat e on the left. There is diffuse soft tissue edema now seen, both inside and outside of the pelvic cavity. No organiz ed or drainable fluid. CONCLUSION: 1. Large, irregular malignant appearing low midline pelvic mass as described above. I believe this pr obably arises from the sigmoid colon but a vaginal origin is not entirely excludable. The degree of a ssociated colonic obstruction appears modestly improved since the CT. 2. Broad area of posterior bladder invasion noted including close to the bilateral ureterovesical kate ctions and the proximal urethra. Urinary bladder is now decompressed with a Fields catheter. 3. No lymphadenopathy. No evidence of bony metastatic disease. 4. Diffuse soft tissue edema now present, presumably radiation therapy related. 5. Mild right and moderate left hip' right is incidentally noted. Jorge Arnett MD on January 12, 2017 at 8:48 Board Certified Radiologist. This report was verified electronically.
--- NOTE | 2017-01-12 12:46 | RADRPT ---
EXAM DATE/TIME: 01/12/2017 12:20 [facility] COMPARISON: CHEST SINGLE AP, July 27, 2012, 8:49. INDICATIONS : Hypoxia MEDICAL HISTORY : Hypertension. Pelvic mass SURGICAL HISTORY : Hysterectomy. Colostomy ENCOUNTER: Subsequent ACUITY: 1 week PAIN SCORE: 0/10 LOCATION: chest FINDINGS: Single AP view of the chest. Mild blunting of the left costophrenic sulcus. Minimal patchy opacity at the left lung base with partial obscuration of left hemidiaphragm. Right lung clear. Cardiomediastin al silhouette within normal limits. CONCLUSION: 1. Mild patchy atelectasis versus consolidation at the left lung base. 2. Small left pleural effusion. Geovanny Meraz MD on January 12, 2017 at 12:43 Board Certified Radiologist. This report was verified electronically.
[2017-01-12] MEDS: ENOXAPARIN SODIUM 40 MG/0.4 ML SYRINGE SQ SCH (15:12)
[2017-01-13] VITALS (9 sets, daily range): BP systolic 144–179; BP diastolic 66–78; PULSE 96–107; RESP 18–20; TEMP 97–98.1; O2SAT 94–98
[2017-01-13] MEDS: cloNIDine HCL 0.1 MG TAB PO PRN (04:55)
[2017-01-13 06:50] LABS: AUTOMATED NEUTROPHIL # 8.8 TH/MM3 (1.8-7.7); BASOPHIL % 0.2 % (0.0-2.0); EOSINOPHIL # 0.2 TH/MM3 (0-0.4); EOSINOPHIL % 1.5 % (0.0-4.0); HEMATOCRIT 29.2 % (35.0-46.0); HEMO FLAGS DIFF FINAL; LYMPH % 5.1 % (9.0-44.0); LYMPHOCYTE # 0.6 TH/MM3 (1.0-4.8); MEAN CELL VOLUME 86.7 FL (80.0-100.0); MEAN CORPUSCULAR HEMOGLOBIN 28.9 PG (27.0-34.0); MEAN CORPUSCULAR HGB CONC 33.3 % (32.0-36.0); MONO % 10.6 % (0.0-8.0); NEUT % 82.6 % (16.0-70.0); PLATELET COUNT 126 TH/MM3 (150-450); RED BLOOD COUNT 3.37 MIL/MM3 (4.00-5.30); RED CELL DISTRIBUTION WIDTH 14.4 % (11.6-17.2); WHITE BLOOD COUNT 10.7 TH/MM3 (4.0-11.0)
[2017-01-13 07:14] LABS: BICARBONATE 26.4 MEQ/L (21.0-32.0); MAGNESIUM 1.8 MG/DL (1.5-2.5); POTASSIUM 3.7 MEQ/L (3.5-5.1)
--- NOTE | 2017-01-13 09:10 | PD.ONC.PN ---
Subjective Subjective Remarks patient is resting in bed no complaints explained final pathology as SSC patient has met with Dr. Lane from Rad/Onc with the plan to start radiation...I explained that Dr Rowe recommends along with radiation giving weekly Cisplatin chemotherapy will sensitize the tissues significantly improving the ability of radiation to treat her cancer. I explained it is given once a week during radiation and given at 1/2 the normal dose. This pros and cons and potential side effects of IV chemo were explained to her. I also discussed with her infusa-port placement and she is agreeable. question answered. Objective Data Date Time Temp Pulse Resp B/P (MAP) Pulse Ox O2 Delivery O2 Flow Rate FiO2 01/13/17 04:44 97.0 104 18 176/78 (110) 96 01/13/17 00:49 97.9 107 18 168/76 (106) 96 01/12/17 20:06 Venturi Mask 5.00 01/12/17 20:00 98.4 114 18 145/81 (102) 92 01/12/17 16:00 98.4 119 17 173/78 (109) 92 01/12/17 13:15 93 Venturi Mask 6.00 01/12/17 12:30 85 Nasal Cannula 4.00 01/12/17 12:00 97.3 128 18 177/80 (112) 91 01/13/17 01/13/17 01/13/17 07:00 15:00 23:00 Output Total 300 ml Balance -300 ml Result Diagram: 01/13/17 0607 01/13/17 0607 Laboratory Results Laboratory Tests Test 01/13/17 06:07 White Blood Count 10.7 TH/MM3 Red Blood Count 3.37 MIL/MM3 Hemoglobin 9.7 GM/DL Hematocrit 29.2 % Mean Corpuscular Volume 86.7 FL Mean Corpuscular Hemoglobin 28.9 PG Mean Corpuscular Hemoglobin Concent 33.3 % Red Cell Distribution Width 14.4 % Platelet Count 126 TH/MM3 Mean Platelet Volume 7.6 FL Neutrophils (%) (Auto) 82.6 % Lymphocytes (%) (Auto) 5.1 % Monocytes (%) (Auto) 10.6 % Eosinophils (%) (Auto) 1.5 % Basophils (%) (Auto) 0.2 % Neutrophils # (Auto) 8.8 TH/MM3 Lymphocytes # (Auto) 0.6 TH/MM3 Monocytes # (Auto) 1.1 TH/MM3 Eosinophils # (Auto) 0.2 TH/MM3 Basophils # (Auto) 0.0 TH/MM3 CBC Comment DIFF FINAL Differential Comment Blood Urea Nitrogen 11 MG/DL Creatinine 0.63 MG/DL Random Glucose 78 MG/DL Calcium Level 7.7 MG/DL Magnesium Level 1.8 MG/DL Sodium Level 135 MEQ/L Potassium Level 3.7 MEQ/L Chloride Level 99 MEQ/L Carbon Dioxide Level 26.4 MEQ/L Anion Gap 10 MEQ/L Estimat Glomerular Filtration Rate 93 ML/MIN Imaging Studies Last Impressions Pelvis MRI 01/12/17 0000 Signed Impressions: Service Date/Time: Thursday, January 12, 2017 07:21 - CONCLUSION: 1. Large, irregular malignant appearing low midline pelvic mass as described above. I believe this probably arises from the sigmoid colon but a vaginal origin is not entirely excludable. The degree of associated colonic obstruction appears modestly improved since the CT. 2. Broad area of posterior bladder invasion noted including close to the bilateral ureterovesical junctions and the proximal urethra. Urinary bladder is now decompressed with a Fields catheter. 3. No lymphadenopathy. No evidence of bony metastatic disease. 4. Diffuse soft tissue edema now present, presumably radiation therapy related. 5. Mild right and moderate left hip' right is incidentally noted. Jorge Arnett MD Chest X-Ray 01/12/17 0000 Signed Impressions: Service Date/Time: Thursday, January 12, 2017 12:20 - CONCLUSION: 1. Mild patchy atelectasis versus consolidation at the left lung base. 2. Small left pleural effusion. Geovanny Meraz MD Pelvis Ultrasound 01/08/17 0000 Signed Impressions: Service Date/Time: Sunday, January 08, 2017 08:52 - CONCLUSION: Ultrasound confirms mass in the pelvis and location the vaginal cuff. MRI is suggested. Aj Jarrett MD FACR Abdomen/Pelvis CT 01/07/17 1235 Signed Impressions: Service Date/Time: Saturday, January 07, 2017 14:35 - CONCLUSION: 1. There is a pelvis mass that is obstructing the distal sigmoid colon. It measures approximately 4.2 x 2.8 cm. The colon proximal to this portion is dilated and filled with fluid and fecal material. 2. The pelvis mass abuts the vaginal apex , protrudes into the urinary bladder, and is contiguous with the sigmoid colon mass. Therefore, this could represent a colon cancer that has secondarily invaded the surrounding structures or potentially a FISHER OYSTER malignancy that has secondarily invaded the surrounding structures. Given that the epicenter of the mass is mostly outside of the urinary bladder, it is less likely bladder in origin. 3. Nonacute findings include small hiatal hernia and mild atherosclerotic disease. Jorge Gleason MD Administered Medications Medications (Trade) Dose Ordered Sig/Gregg Route PRN Reason Start Time Stop Time Status Last Admin Dose Admin Ondansetron HCl (Zofran Inj) 4 mg Q6HR PRN IV PUSH NAUSEA OR VOMITING 01/07/17 16:45 01/12/17 19:59 Promethazine HCl (Phenergan Inj) 25 mg Q6H PRN IM BREAKTHROUGH NAUSEA/VOMITING 01/07/17 22:00 01/08/17 17:31 Clonidine (Catapres) 0.1 mg Q6H PRN PO sbp >160 or dbp >95 01/08/17 06:15 01/13/17 04:55 Enalaprilat (Vasotec Inj) 1.25 mg Q6H PRN IV PUSH sbp > 180 01/09/17 09:00 01/11/17 04:33 Pantoprazole Sodium (Protonix Inj) 40 mg DAILY IV PUSH 01/10/17 18:15 01/12/17 08:53 Morphine Sulfate (Morphine Inj) 4 mg Q3H PRN IV PUSH PAIN SCALE 1 TO 10 01/11/17 08:30 01/12/17 20:00 Enoxaparin Sodium (Lovenox Inj) 40 mg Q24H SQ 01/12/17 15:00 01/12/17 15:12 Objective Remarks GENERAL: Well-nourished, well-developed patient. SKIN: Warm and dry. HEAD: Normocephalic. EYES: No scleral icterus. No injection or drainage. CARDIOVASCULAR: Regular rate and rhythm without murmurs. RESPIRATORY: Breath sounds equal bilaterally. No accessory muscle use., face mask GASTROINTESTINAL: Abdomen soft, non-tender, nondistended. with colostomy EXTREMITIES: teds and scds MUSCULOSKELETAL: Adequate muscle tone. NEUROLOGICAL: No obvious focal deficit. Awake, alert, and oriented x3. PSYCHIATRIC: Appropriate mood and affect; insight and judgment normal. 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 Dr. Lane consulted to evaluate and treat with radiation weekly cisplatin per musical instrument maker or repairer/onc during radiation, will place order for IR to place infusa-port (2) Large bowel obstruction ICD Codes: K56.609 - Unspecified intestinal obstruction, unspecified as to partial versus complete obstruction Status: Acute Plan: s/p exploratory laparotomy with diverting loop colostomy Dr. Mansfield following Attending Statement Discussed with Dr. Rowe and he is in agreement. Griffin Vallecillo Jan 13, 2017 09:10
[2017-01-13] MEDS: PANTOPRAZOLE SODIUM 40 MG VIAL IV PUSH SCH ×2 (09:20→20:59)
[2017-01-13] MEDS: MORPHINE SULFATE 4 MG/ML INJ IV PUSH PRN ×3 (09:52→20:57)
--- NOTE | 2017-01-13 11:18 | HHI.PR ---
Subjective Remarks Pt feeling much better today She is off the Ventimask and is saturating well on 2L via NC She has been able to ambulate in the room with the supplemental O2 on without difficulty Pt tolerating some oral intake. Objective Vitals Vital Signs Date Time Temp Pulse Resp B/P (MAP) Pulse Ox O2 Delivery O2 Flow Rate FiO2 01/13/17 09:57 18 01/13/17 08:00 97.6 98 20 147/66 (93) 98 01/13/17 04:44 97.0 104 18 176/78 (110) 96 01/13/17 00:49 97.9 107 18 168/76 (106) 96 01/12/17 20:06 Venturi Mask 5.00 01/12/17 20:00 98.4 114 18 145/81 (102) 92 01/12/17 16:00 98.4 119 17 173/78 (109) 92 01/12/17 13:15 93 Venturi Mask 6.00 01/12/17 12:30 85 Nasal Cannula 4.00 01/12/17 12:00 97.3 128 18 177/80 (112) 91 01/13/17 01/13/17 01/14/17 15:00 23:00 07:00 Intake Total 1200 ml Balance 1200 ml Intake Oral 1200 ml Result Diagram: 01/13/17 0607 01/13/17 0607 Other Results Laboratory Tests Test 01/12/17 04:07 01/13/17 06:07 White Blood Count 12.8 TH/MM3 10.7 TH/MM3 Red Blood Count 3.45 MIL/MM3 3.37 MIL/MM3 Hemoglobin 10.1 GM/DL 9.7 GM/DL Hematocrit 30.2 % 29.2 % Mean Corpuscular Volume 87.5 FL 86.7 FL Mean Corpuscular Hemoglobin 29.1 PG 28.9 PG Mean Corpuscular Hemoglobin Concent 33.3 % 33.3 % Red Cell Distribution Width 14.4 % 14.4 % Platelet Count 150 TH/MM3 126 TH/MM3 Mean Platelet Volume 7.6 FL 7.6 FL Neutrophils (%) (Auto) 84.2 % 82.6 % Lymphocytes (%) (Auto) 6.4 % 5.1 % Monocytes (%) (Auto) 7.7 % 10.6 % Eosinophils (%) (Auto) 1.4 % 1.5 % Basophils (%) (Auto) 0.3 % 0.2 % Neutrophils # (Auto) 10.8 TH/MM3 8.8 TH/MM3 Lymphocytes # (Auto) 0.8 TH/MM3 0.6 TH/MM3 Monocytes # (Auto) 1.0 TH/MM3 1.1 TH/MM3 Eosinophils # (Auto) 0.2 TH/MM3 0.2 TH/MM3 Basophils # (Auto) 0.0 TH/MM3 0.0 TH/MM3 CBC Comment DIFF FINAL DIFF FINAL Differential Comment Blood Urea Nitrogen 9 MG/DL 11 MG/DL Creatinine 0.69 MG/DL 0.63 MG/DL Random Glucose 89 MG/DL 78 MG/DL Total Protein 5.6 GM/DL Calcium Level 7.4 MG/DL 7.7 MG/DL Sodium Level 133 MEQ/L 135 MEQ/L Potassium Level 4.3 MEQ/L 3.7 MEQ/L Chloride Level 103 MEQ/L 99 MEQ/L Carbon Dioxide Level 23.4 MEQ/L 26.4 MEQ/L Anion Gap 7 MEQ/L 10 MEQ/L Estimat Glomerular Filtration Rate 83 ML/MIN 93 ML/MIN Protein Corrected Calcium 8.2 MG/DL Magnesium Level 1.8 MG/DL Imaging Last Impressions Pelvis MRI 01/12/17 0000 Signed Impressions: Service Date/Time: Thursday, January 12, 2017 07:21 - CONCLUSION: 1. Large, irregular malignant appearing low midline pelvic mass as described above. I believe this probably arises from the sigmoid colon but a vaginal origin is not entirely excludable. The degree of associated colonic obstruction appears modestly improved since the CT. 2. Broad area of posterior bladder invasion noted including close to the bilateral ureterovesical junctions and the proximal urethra. Urinary bladder is now decompressed with a Fields catheter. 3. No lymphadenopathy. No evidence of bony metastatic disease. 4. Diffuse soft tissue edema now present, presumably radiation therapy related. 5. Mild right and moderate left hip' right is incidentally noted. Jorge Arnett MD Chest X-Ray 01/12/17 0000 Signed Impressions: Service Date/Time: Thursday, January 12, 2017 12:20 - CONCLUSION: 1. Mild patchy atelectasis versus consolidation at the left lung base. 2. Small left pleural effusion. Geovanny Meraz MD Pelvis Ultrasound 01/08/17 0000 Signed Impressions: Service Date/Time: Sunday, January 08, 2017 08:52 - CONCLUSION: Ultrasound confirms mass in the pelvis and location the vaginal cuff. MRI is suggested. Aj Jarrett MD FACR Abdomen/Pelvis CT 01/07/17 1235 Signed Impressions: Service Date/Time: Saturday, January 07, 2017 14:35 - CONCLUSION: 1. There is a pelvis mass that is obstructing the distal sigmoid colon. It measures approximately 4.2 x 2.8 cm. The colon proximal to this portion is dilated and filled with fluid and fecal material. 2. The pelvis mass abuts the vaginal apex , protrudes into the urinary bladder, and is contiguous with the sigmoid colon mass. Therefore, this could represent a colon cancer that has secondarily invaded the surrounding structures or potentially a PROGRESSIVE DIE MAKER malignancy that has secondarily invaded the surrounding structures. Given that the epicenter of the mass is mostly outside of the urinary bladder, it is less likely bladder in origin. 3. Nonacute findings include small hiatal hernia and mild atherosclerotic disease. Jorge Gleason MD Objective Remarks General: NAD, AAOx3 Chest: CTA bilaterally Cardiac: Regular Abd: +BS, soft, colostomy in RUQ with stool present in the bag, midline incision is well approximated and no erythema or drainage noted Ext: No edema A/P Problem List: (1) Pelvic mass in female ICD Codes: R19.00 - Intra-abdominal and pelvic swelling, mass and lump, unspecified site Status: Acute Plan: - Pt is a 71 y/o female with anxiety, hyperlipidemia and CKD, stage 3 who presented to the ED at [facility] with complaints of Abd pain and constipation - Pt presented to abdominal pain and constipation. - CT abd/pelvis in the ER revealed a 4.2 x 2.8 cm pelvic mass with colonic obstruction due to impingement by the mass. Mass etiology somewhat unclear but not thought to be of bladder origin. More likely colonic or possibly remnant PROGRESSIVE DIE MAKER tissue origin. - The pelvic mass centrally located with some apparent sigmoid colon obstruction unclear if it arises from the vaginal cuff vs colon. - Appreciate CRS and PROGRESSIVE DIE MAKER Surgery involvement. - Pt underwent vaginal exploration under anesthesia, cystoscopy, sigmoidoscopy, and exploratory laparotomy with loop colostomy placement on 01/10/[address] Mansfield and Dr. Rowe. She was found to have disease at the top of the vagina which is invading bladder and obstructing the colon. - Intra-operative frozen sections were consistent with squamous cell carcinoma but final pathology is pending. - Radiation Oncology is following - Pain control PRN, increased frequency of Morphine to Q3H on 01/11 due to uncontrolled pain - Pts diet advanced to regular consistency - BP has been elevated likely secondary to pain. Pt does not have hx of HTN. Clonidine and Vasotec PRN ordered - MRI Pelvis (01/12/17) --> Large, irregular malignant appearing low midline pelvic mass. The degree of associated colonic obstruction appears modestly improved since the CT. Broad area of posterior bladder invasion noted including close to the bilateral ureterovesical junctions and the proximal urethra. Urinary bladder is now decompressed with a Fields catheter. No lymphadenopathy. No evidence of bony metastatic disease. Diffuse soft tissue edema now present, presumably radiation therapy related. Mild right and moderate left hip' right is incidentally noted. - DVT prophylaxis with Lovenox (2) Syncope ICD Codes: R55 - Syncope and collapse Status: Acute Plan: - On 01/12 pt had an episode of syncope after trying to ambulate to the bathroom and was found to be hypoxic with O2 sats in the 60's. Pt was placed on a ventimask at 5L - Her IVF were stopped - CXR (01/12) --> Mild patchy atelectasis versus consolidation at the left lung base. Small left pleural effusion. - Pt is doing better today and back to 2L via NC - No wheezing on exam - Telemetry with some short runs of atrial tachycardia - PT evaluation (3) Large bowel obstruction ICD Codes: K56.609 - Unspecified intestinal obstruction, unspecified as to partial versus complete obstruction Status: Acute Plan: - See above (4) Anxiety ICD Codes: F41.9 - Anxiety disorder, unspecified Status: Chronic Plan: - Alprazolam as needed. (5) Hyperlipidemia ICD Codes: E78.5 - Hyperlipidemia, unspecified Status: Chronic Plan: - Follow as outpatient. Assessment and Plan Patient examined. Assessment and plan formulated with Lacy Cueva PA-C. I agree with the above. Pt appeared comfortable. Pt to have Infusaport placement Will d/w CRS and Cement Side Laster Oncology Lacy Cueva Jan 13, 2017 11:18 Javed Olguin DO Jan 14, 2017 09:44
[2017-01-13] MEDS: ENOXAPARIN SODIUM 40 MG/0.4 ML SYRINGE SQ SCH (15:00)
--- NOTE | 2017-01-13 15:31 | PD.WCN.NOT ---
Wound Consult Description: Consult for Stoma per Dr Mansfield Communicated with: Patient DANA Quiles Recommendation: Empty when pouch is 1/3-1/2 full of effluent Change appliance before leaks occur Measure stoma for correct fit of appliance (wafer and pouch) Additional Information: Patient seen on [address] [place] [address] for ostomy assessment and teaching. Ostomy Type: Other (Loop transverse colostomy) Surgeon: Javi Mansfield MD Date of Surgery: Jan 10, 2017 Complete: Starter kit ([employer] kit to be sent to patient home ), Education materials ([employer] kit in patient room), Rx (left on chart), Other (supplies ordered in size 2 1/4" moldable) Educated patient on: Empty when pouch is 1/3-1/2 full of effluent Change appliance before leaks occur Measure stoma for correct fit of appliance (wafer and pouch) How to obtain appliances How to open and close end of pouch Additional information Patient seen on [address] [place] [address] for ostomy assessment and teaching. Loop Colostomy is noted to the upper right side abdomen measuring 1 3/4" round with deyanira in place. Appliance is noted to be intact without leaks. Stoma is red, moist, edematous, round, functioning with liquid brown effluent noted in pouch that was emptied by filing writer and left in bathroom for I&O's. Colostomy kit was already in patient room with some teaching completed by RN's on unit. Patient demonstrated how to open and close pouch. Patient states that her and sister have had teaching as well and will be assisting her with taking care of it. Patient is getting ready to go down for a port placement and was calling for pain medication. Patient will be followed up on tomorrow 01/14/17. Dorothy Montero [facility] Jan 13, 2017 15:31
--- NOTE | 2017-01-13 16:25 | HHI.PR ---
Subjective Remarks C/R Surg POD # 3 afebrile, VSS UO adeq stoma functioning Objective - Vital Signs Date Time Temp Pulse Resp B/P (MAP) Pulse Ox O2 Delivery O2 Flow Rate FiO2 01/13/17 15:50 95 Nasal Cannula 4.00 01/13/17 15:15 18 01/13/17 11:55 97.3 96 144/72 (96) Result Diagram: 01/13/17 0607 01/13/17 0607 Objective Remarks PE alert Abd - soft, stoma pink. wound slightly red A/P Assessment and Plan Imp: cont to adv diet port placement dc plans Javi Mansfield MD Jan 13, 2017 16:25
[2017-01-13 16:28] LABS: APTT (PATIENT) 27.7 SEC (24.3-30.1); INTERNATIONAL NORMALIZED RATIO 1.1 RATIO; PROTHROMBIN TIME - PATIENT 12.3 SEC (9.8-11.6)
[2017-01-13] MEDS ORDERED: VANCOMYCIN INJ 1,000 MG in SODIUM CHLOR 0.9% 250 ML INJ 250 ML IV SCH (16:45)
[2017-01-13] MEDS ORDERED: LEVOFLOXACIN 500 MG PREMIX INJ 100 ML IV ONE (16:45)
[2017-01-13] MEDS: ONDANSETRON HCL 4 MG/2 ML VIAL IV PUSH PRN (21:02)
[2017-01-14] VITALS (13 sets, daily range): BP systolic 131–169; BP diastolic 69–77; PULSE 85–108; RESP 15–20; TEMP 97.6–98.7; O2SAT 92–97
[2017-01-14] MEDS: MORPHINE SULFATE 4 MG/ML INJ IV PUSH PRN ×2 (03:31→07:36)
[2017-01-14] MEDS: PANTOPRAZOLE SODIUM 40 MG VIAL IV PUSH SCH (07:37)
--- NOTE | 2017-01-14 07:48 | MB ---
cc: MAGGIE TOLEDO M.D., RONALD J. M.D. MOLPUS, KELLY L. MD BRAITHWAITE, RICHARD L. M.D. DATE: 01/14/2017 DISCUSSION I had the opportunity to speak again with Divina Escobar to update our findings thus far in her case. I explained the findings suggestive of a squamous cell carcinoma involving the vagina, paravaginal tissue, bladder, and with significant compromise to the rectum. The origin of the tumor is uncertain but squamous cell cancer with central location is likely to have been a vaginal primary. I explained that Dr. Toledo on endoscopy tried to identify the area of tumor but there was such a narrowing and circuitous area she was not a candidate for a stent placement and as bowel was obstructed he recommended and performed diverting colostomy. With respect to treatment I believe this can best be approached with radiation. She has already been seen in consult by Dr. Danny Lane, radiation oncologist. I explained an overview of treatment, both the benefits as well as anticipated side effects including problems that would occur and or worsen should treatment not be undertaken. I explained the value of ugashik-based chemotherapy during radiation treatment to help facilitate the radiation effect and enhance response to treatment and the value of venous access port placement to avoid chemotherapy through the peripheral arm veins. Discussion ensued. Questions were answered. She expressed good understanding and agrees to move forward with steps as recommended. ASSESSMENT 1. 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 2. Discussion, review of findings and recommendations. PLAN 1. Interventional radiology has been consulted for venous access port placement. 2. Radiation oncology has been consulted and Dr. Danny Lane has seen her to overview pelvic radiation with recommendations to take the treatment to curative intent to maximize external radiation followed by brachytherapy. 3. She has been counseled regarding weekly cisplatin chemotherapy and the value of ugashik during her radiation treatment. 4. She is to follow-up within one week of hospital discharge in our office. We will coordinate initiation of cisplatin chemotherapy near the onset of her radiation treatment. MD SEUN Clifford/CANDY /7:30 AM /7:37 AM
--- NOTE | 2017-01-14 08:52 | MP ---
cc: MAGGIE TOLEDO M.D., RONALD J. M.D. MOLPUS, KELLY L. MD BRAITHWAITE, RICHARD L. M.D. DATE OF SURGERY 01/10/2017 PREOPERATIVE DIAGNOSES 1. Central pelvic mass. 2. Vaginal bleeding. 3. Large bowel obstruction. POSTOPERATIVE DIAGNOSES 1. Central pelvic mass. 2. Vaginal bleeding. 3. Large bowel obstruction. 4. Invasive squamous cell carcinoma. PROCEDURE Examination under anesthesia, biopsy of vaginal tumor. Cystoscopy. SURGEON Giovanna Rowe MD [employer] Cecil chiropractic assistant. ANESTHESIA General endotracheal anesthesia. ESTIMATED BLOOD LOSS 50 cc. HISTORY This is a 71-year-old female who was admitted to the hospital with the aforementioned findings of central pelvic mass and vaginal bleeding. Imaging suggested the mass to be in the peritoneum and vaginal apex as well as growing into the bladder. There was also significant mass effect causing either extrinsic compression to the sigmoid colon or invading into the sigmoid colon such that there was colonic obstruction. She has been counseled regarding these findings and the need for more information. We expressed our concern regarding the suspicion of a malignancy and that additional information is needed to try or clarify the origin of the tumor and the extent of the tumor which could subsequently help direct treatment recommendations. She is also seen in consultation by Dr. Maggie Toledo who will evaluate and address the intestinal obstruction. Please see his op note regarding the procedure. Her and her were seen prior to this procedure. Questions were asked and answered. They expressed good understanding and agreed. FINDINGS On exam under anesthesia there is no appreciably enlarged inguinal lymph nodes. External genitalia are without mass or lesion. On speculum exam there is exophytic friable tumor replacing the vaginal apex that seems limited to the central vaginal apex and upper-most portions of the vagina. There is extension into the subvaginal tissue with possibly some extension to the pelvic sidewalls. On cystoscopy there is tumor in the posterior wall of the bladder. The ureteral ostia could not be visualized due to tumor and bullous edema, although there appears to be urine efflux from each side without obvious obstruction. Frozen section from the biopsy taken from the vaginal tumor was that of a squamous cell carcinoma. PROCEDURE She was taken to the operating room and placed in dorsal lithotomy position. After general endotracheal anesthesia was administered time-out was undertaken. She was identified by sight recognition and hospital ID bracurtet and the proposed procedure was reviewed and confirmed. She was placed in lithotomy position. Exam under anesthesia was performed. She was prepped and draped in sterile fashion. Biopsies were taken from the central vaginal tumor which was quite hemorrhagic. Topical Monsel's, coagulant and Surgicel SNoW was placed against the tumor which did render it hemostatic. Cystoscopy was performed using a 30-degree scope with findings as described above. Just the cystoscopy itself initiated some bleeding from the tumor. To avoid additional bleeding, biopsies were not obtained but urine was collected for cytology but there is clearly tumor invading into the bladder. The case was then turned over to Dr. Maggie Toledo and I left the operating room while she was still under anesthesia to go speak to her to given the updates as to the findings thus far in the case. MD SEUN Clifford/OSKAR /7:24 AM /8:46 AM
[2017-01-14] MEDS ORDERED: LIDOCAINE 1%/EPINEPHrine 1:100,000 SOLN 20 ML VIAL ONE (09:30)
[2017-01-14] MEDS ORDERED: ONDANSETRON HCL 4 MG/2 ML VIAL ONE (09:31)
[2017-01-14] MEDS ORDERED: LEVOFLOXACIN 500 MG PREMIX INJ 100 ML IV ONE (09:32)
[2017-01-14] MEDS ORDERED: MIDAZOLAM HCL 2 MG/2 ML VIAL ONE (09:32)
--- NOTE | 2017-01-14 09:47 | HHI.FF ---
Face to Face Verification Diagnosis: (1) Large bowel obstruction (2) Pelvic mass in female (3) Syncope (4) Anxiety Physical Therapy Order: Evaluate and Treat, Improve ambulation, Strength and gait training Home Health Nursing Order: Medical education Signs/symptoms of disease process Medication education-adverse effect Wound care and dressing changes Nursing assessment with vital signs Instructions: Ostomy care/teaching I have seen patient Divina Escobar on 01/14/17. My clinical findings support the need for the requested home health care services because: Ltd mobility - disease progression Deconditioned w/ increased weakness Med compliance is questionable Limited ability to care for self Need for psychosocial assistance I certify that my clinical findings support that this patient is homebound because: Post-op weakness Impaired cognitive ability/safety Unsafe to leave home unassisted Need for psychosocial assistance Unable to use public transportation Javed Olguin DO Jan 14, 2017 09:47
--- NOTE | 2017-01-14 10:05 | HHI.PR ---
Subjective Remarks No new complaints. Objective Vitals Vital Signs Date Time Temp Pulse Resp B/P (MAP) Pulse Ox O2 Delivery O2 Flow Rate FiO2 01/14/17 08:00 97.8 96 15 168/72 (104) 94 01/14/17 04:00 97.8 89 20 168/74 (105) 95 01/14/17 00:00 97.6 93 20 169/77 (107) 95 01/13/17 23:56 98 01/13/17 20:00 98.0 102 20 168/73 (104) 94 01/13/17 16:00 98.1 97 19 179/76 (110) 95 01/13/17 15:50 95 Nasal Cannula 4.00 01/13/17 15:15 18 01/13/17 11:55 97.3 96 19 144/72 (96) 95 01/13/17 10:00 95 Nasal Cannula 3.00 Result Diagram: 01/13/17 0607 01/13/17 0607 Imaging Last Impressions Pelvis MRI 01/12/17 0000 Signed Impressions: Service Date/Time: Thursday, January 12, 2017 07:21 - CONCLUSION: 1. Large, irregular malignant appearing low midline pelvic mass as described above. I believe this probably arises from the sigmoid colon but a vaginal origin is not entirely excludable. The degree of associated colonic obstruction appears modestly improved since the CT. 2. Broad area of posterior bladder invasion noted including close to the bilateral ureterovesical junctions and the proximal urethra. Urinary bladder is now decompressed with a Fields catheter. 3. No lymphadenopathy. No evidence of bony metastatic disease. 4. Diffuse soft tissue edema now present, presumably radiation therapy related. 5. Mild right and moderate left hip' right is incidentally noted. Jorge Arnett MD Chest X-Ray 01/12/17 0000 Signed Impressions: Service Date/Time: Thursday, January 12, 2017 12:20 - CONCLUSION: 1. Mild patchy atelectasis versus consolidation at the left lung base. 2. Small left pleural effusion. Geovanny Meraz MD Pelvis Ultrasound 01/08/17 0000 Signed Impressions: Service Date/Time: Sunday, January 08, 2017 08:52 - CONCLUSION: Ultrasound confirms mass in the pelvis and location the vaginal cuff. MRI is suggested. Aj Jarrett MD FACR Abdomen/Pelvis CT 01/07/17 1235 Signed Impressions: Service Date/Time: Saturday, January 07, 2017 14:35 - CONCLUSION: 1. There is a pelvis mass that is obstructing the distal sigmoid colon. It measures approximately 4.2 x 2.8 cm. The colon proximal to this portion is dilated and filled with fluid and fecal material. 2. The pelvis mass abuts the vaginal apex , protrudes into the urinary bladder, and is contiguous with the sigmoid colon mass. Therefore, this could represent a colon cancer that has secondarily invaded the surrounding structures or potentially a [employer] malignancy that has secondarily invaded the surrounding structures. Given that the epicenter of the mass is mostly outside of the urinary bladder, it is less likely bladder in origin. 3. Nonacute findings include small hiatal hernia and mild atherosclerotic disease. Jorge Gleason MD Objective Remarks General: NAD, AAOx3 Chest: Crackles at the bases Cardiac: Regular Abd: +BS, soft, colostomy in RUQ with stool present in the back, midline incision is well approximated and no erythema or drainage noted Ext: No edema A/P Problem List: (1) Pelvic mass in female ICD Codes: R19.00 - Intra-abdominal and pelvic swelling, mass and lump, unspecified site Status: Acute Plan: - comgmt with [facility] On[facility] and CRS - Pt is a 71 y/o female with anxiety, hyperlipidemia and CKD, stage 3 who presented to the ED at [facility] [place] with complaints of Abd pain and constipation - Pt presented to abdominal pain and constipation. - CT abd/pelvis in the ER revealed a 4.2 x 2.8 cm pelvic mass with colonic obstruction due to impingement by the mass. Mass etiology somewhat unclear but not thought to be of bladder origin. More likely colonic or possibly remnant [employer] tissue origin. - The pelvic mass centrally located with some apparent sigmoid colon obstruction unclear if it arises from the vaginal cuff vs colon. - MRI Pelvis (01/12/17) --> Large, irregular malignant appearing low midline pelvic mass. The degree of associated colonic obstruction appears modestly improved since the CT. Broad area of posterior bladder invasion noted including close to the bilateral ureterovesical junctions and the proximal urethra. Urinary bladder is now decompressed with a Fields catheter. No lymphadenopathy. No evidence of bony metastatic disease. Diffuse soft tissue edema now present, presumably radiation therapy related. Mild right and moderate left hip' right is incidentally noted. - Pt underwent vaginal exploration under anesthesia, cystoscopy, sigmoidoscopy, and exploratory laparotomy with loop colostomy placement on 01/10/[address] Mansfield and Dr. Rowe. She was found to have disease at the top of the vagina which is invading bladder and obstructing the colon. - Intra-operative frozen sections were consistent with squamous cell carcinoma but final pathology is pending. - norco/morphine prn pain - after Infusaport placement will resume diet with ADA/soft diet - start scheduled BP medication; prn clonidine & vasotec - PT evaluation - arrange HHC/PT - anticipate d/c to home in next 1-2 days - Case d/w [facility], Dr. Rowe, 01/14/17. - Pt will need one week f/u with Dr. Rowe & with Dr. Lane, Radiation Oncology - Final pathology results pending, but expected later today - tenative plan is for Pelvic Radiation with weekly cisplatin chemotherapy - Case d/w CRS, Dr. Mansfield, (). Dr. Mansfield to reevaluate this evening - anticipate d/c to home with HHC and home PT in next 1-2 days - DVT prophylaxis with Lovenox (2) HTN (hypertension) ICD Codes: I10 - Essential (primary) hypertension Plan: - needs improvement - start lisinopril 10mg PO BID, observe response - prn IV Vasotec, prn PO Catapres (3) Syncope ICD Codes: R55 - Syncope and collapse Status: Acute Plan: - On 01/12 pt had an episode of syncope after trying to ambulate to the bathroom and was found to be hypoxic with O2 sats in the 60's. Pt was placed on a ventimask at 5L - Her IVF were stopped - CXR (01/12) --> Mild patchy atelectasis versus consolidation at the left lung base. Small left pleural effusion. - Pt is doing better today and back to 2L via NC - No wheezing on exam - Telemetry with some short runs of atrial tachycardia - PT evaluation - Pt has had NO further events (4) Large bowel obstruction ICD Codes: K56.609 - Unspecified intestinal obstruction, unspecified as to partial versus complete obstruction Status: Acute Plan: - See above (5) Anxiety ICD Codes: F41.9 - Anxiety disorder, unspecified Status: Chronic Plan: - Alprazolam as needed. (6) Hyperlipidemia ICD Codes: E78.5 - Hyperlipidemia, unspecified Status: Chronic Plan: - Follow as outpatient. Javed Olguin DO Jan 14, 2017 10:05
[2017-01-14] MEDS ORDERED: SODIUM CHLORIDE 0.9% FLUSH 5 ML FLUSH IVF PRN (10:30)
--- NOTE | 2017-01-14 10:30 | PD.RAD ---
Post Procedure Progress Note Pre Procedure Diagnosis: (1) Pelvic mass in female Post Procedure Diagnosis: (1) Pelvic mass in female Procedure Date: Jan 14, 2017 Supervising Radiologist: Anthony Perez Proceduralist/Assist: Jose Lopez RT(R), RT Stephen(R) Anesthesia: Conscious Sedation Plan of Activity Patient to Unit: Nursing Unit Patient Condition: Good See PACS Report for procedural detail/treatment Central Venous Access Device Procedure 1 Right Internal Jugular Infusaport Placement single lumen Anthony Perez MD Jan 14, 2017 10:30
[2017-01-14] MEDS: ACETAMINOPHEN/HYDROcodone 325 MG/5 MG TAB PO PRN ×2 (12:00→18:27)
--- NOTE | 2017-01-14 12:51 | PD.WCN.NOT ---
Wound Consult Description: Consult for Stoma per Dr Mansfield Communicated with: Patient DANA Patel Recommendation: Empty when pouch is 1/3-1/2 full of effluent Change appliance before leaks occur Measure stoma for correct fit of appliance (wafer and pouch) Additional Information: Patient seen on [place] for ostomy teaching and assessment. Ostomy Type: Other (Loop transverse colostomy) Surgeon: Javi Mansfield MD Date of Surgery: Jan 10, 2017 Complete: Starter kit ([employer] kit sent to patient home ), Education materials ([employer] kit in patient room), Rx (left on chart), Other (supplies ordered in size 2 1/4" moldable for patient to take home at discharge) Educated patient on: Emptying pouch when 1/3-1/2 full of effluent/flatus Change appliance before leaks or every 5-7 days Cleanse around stoma with water and allow to dry thoroughly Warm wafer prior to applying to help adhere to skin Attach pouch to wafer and close the end Additional information Patient seen on . Patient had just returned from port placement and sitting up in chair. Ostomy is red, oval, measuring 1 3/4", moist, functioning with brown effluent on stoma itself and liquid noted in pouch that was closed properly. Appliances in room for patient to go home with. [employer] has sent kit to the patient home 2 day air and should be arriving tomorrow 01/15/17. Dorothy Montero [facility] Jan 14, 2017 12:51
[2017-01-14] MEDS: SODIUM CHLOR 0.9% 1000 ML INJ 1,000 ML IV SCH (18:45)
--- NOTE | 2017-01-14 21:09 | HHI.PR ---
Subjective Remarks C/R Surg POD # 4 afebrile, VSS UO adeq stoma functioning ?urine output Objective - Vital Signs Date Time Temp Pulse Resp B/P (MAP) Pulse Ox O2 Delivery O2 Flow Rate FiO2 01/14/17 16:00 98.3 108 17 131/70 (90) 96 01/14/17 13:00 Nasal Cannula 1.00 Result Diagram: 01/13/17 0607 01/13/17 0607 Objective Remarks PE alert Abd - soft, stoma pink. wound softer A/P Assessment and Plan Imp: cont to adv diet port placement dc plans watch urine Javi Mansfield MD Jan 14, 2017 21:09
[2017-01-14] MEDS: FUROSEMIDE 20 MG/2 ML VIAL IV PUSH SCH (21:56)
[2017-01-14] MEDS: LISINOPRIL 10 MG TAB PO SCH (21:56)
[2017-01-15] VITALS: BP 172/74; PULSE 107; RESP 20; TEMP 99; O2SAT 93
[2017-01-15] MEDS: MORPHINE SULFATE 4 MG/ML INJ IV PUSH PRN ×3 (00:50→12:15)
[2017-01-15] MEDS: ONDANSETRON HCL 4 MG/2 ML VIAL IV PUSH PRN (01:02)
[2017-01-15 04:00] VITALS: BP 150/72; PULSE 104; RESP 20; TEMP 98.6; O2SAT 93
[2017-01-15] MEDS: SODIUM CHLOR 0.9% 1000 ML INJ 1,000 ML IV SCH (06:33)
[2017-01-15 08:00] VITALS: BP 154/72; PULSE 96; RESP 16; TEMP 97.3; O2SAT 94
[2017-01-15] MEDS ORDERED: LISI10TA3 PO (08:10)
--- NOTE | 2017-01-15 08:36 | PD.ONC.PN ---
Subjective Subjective Remarks patient resting in bed anticipate discharge home today gave written information of chemotherapy patient will need to follow up in cardiac cath technologist/onc clinic with in a week of discharge Objective Data Date Time Temp Pulse Resp B/P (MAP) Pulse Ox O2 Delivery O2 Flow Rate FiO2 01/15/17 04:00 98.6 104 20 150/72 (98) 93 01/15/17 00:00 99.0 107 20 172/74 (106) 93 01/14/17 22:04 Nasal Cannula 1.00 01/14/17 21:32 96 Nasal Cannula 1.00 01/14/17 20:40 100 01/14/17 20:00 98.7 108 20 146/75 (98) 92 01/14/17 16:00 98.3 108 17 131/70 (90) 96 01/14/17 13:00 92 Nasal Cannula 1.00 01/14/17 13:00 18 01/14/17 12:00 98.0 99 18 148/75 (99) 95 01/14/17 11:31 92 Nasal Cannula 3.00 01/14/17 11:10 100 20 152/72 (98) 97 01/14/17 10:55 95 20 149/73 (98) 96 01/14/17 10:40 97.8 104 18 157/69 (98) 93 01/15/17 01/15/17 01/15/17 07:00 15:00 23:00 Intake Total 1000 ml 220 ml Output Total 425 ml Balance 575 ml 220 ml Result Diagram: 01/13/17 0607 01/13/17 0607 Administered Medications Medications (Trade) Dose Ordered Sig/Gregg Route PRN Reason Start Time Stop Time Status Last Admin Dose Admin Ondansetron HCl (Zofran Inj) 4 mg Q6HR PRN IV PUSH NAUSEA OR VOMITING 01/07/17 16:45 01/15/17 01:02 Promethazine HCl (Phenergan Inj) 25 mg Q6H PRN IM BREAKTHROUGH NAUSEA/VOMITING 01/07/17 22:00 01/08/17 17:31 Clonidine (Catapres) 0.1 mg Q6H PRN PO sbp >160 or dbp >95 01/08/17 06:15 01/13/17 04:55 Enalaprilat (Vasotec Inj) 1.25 mg Q6H PRN IV PUSH sbp > 180 01/09/17 09:00 01/11/17 04:33 Pantoprazole Sodium (Protonix Inj) 40 mg DAILY IV PUSH 01/10/17 18:15 01/14/17 07:37 Morphine Sulfate (Morphine Inj) 4 mg Q3H PRN IV PUSH PAIN SCALE 6-10 01/11/17 08:30 01/15/17 06:32 Enoxaparin Sodium (Lovenox Inj) 40 mg Q24H SQ 01/12/17 15:00 Future hold 01/12/17 15:12 Vancomycin HCl 1000 mg/Sodium Chloride 250 ml @ 250 mls/hr HE[employer] S[employer]Y INSTRUCTOR IV 01/13/17 16:45 01/16/17 16:44 01/14/17 08:38 Acetaminophen/ Hydrocodone Bitart ([place] 5-325 Mg) 1 tab Q6H PRN PO pain 1-5 01/14/17 10:00 01/14/17 18:27 Lisinopril (Prinivil) 10 mg Q12HR PO 01/14/17 21:00 01/14/17 21:56 Sodium Chloride 1,000 ml @ 75 mls/hr [id number] IV 01/14/17 18:45 01/15/17 06:33 Furosemide (Lasix Inj) 10 mg Q12HR IV PUSH 01/14/17 21:15 01/14/17 21:56 Objective Remarks GENERAL: Well-nourished, well-developed patient. SKIN: Warm and dry. HEAD: Normocephalic. EYES: No scleral icterus. No injection or drainage. CARDIOVASCULAR: Regular rate and rhythm without murmurs. RESPIRATORY: Breath sounds equal bilaterally. No accessory muscle use. NEUROLOGICAL: No obvious focal deficit. Awake, alert, and oriented x3. PSYCHIATRIC: Appropriate mood and affect; insight and judgment normal. 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 Dr. Lane consulted to evaluate and treat with radiation infusa port placed weekly Cisplatin with radiation as out pt information given to pt and will need follow up in cardiac cath technologist/onc with in a week of discharge (2) Large bowel obstruction ICD Codes: K56.609 - Unspecified intestinal obstruction, unspecified as to partial versus complete obstruction Status: Acute Plan: s/p exploratory laparotomy with diverting loop colostomy Dr. Mansfield following Griffin Vallecillo COMMUNITY DEVELOPMENT AIDE Jan 15, 2017 08:36
[2017-01-15] MEDS: LISINOPRIL 10 MG TAB PO SCH (09:04)
[2017-01-15] MEDS: FUROSEMIDE 20 MG/2 ML VIAL IV PUSH SCH (09:05)
[2017-01-15] MEDS: PANTOPRAZOLE SODIUM 40 MG VIAL IV PUSH SCH (09:05)
[2017-01-15] MEDS ORDERED: PROT40TA PO (09:12)
[2017-01-15] MEDS ORDERED: ZOFR4TAB PO (09:13)
--- NOTE | 2017-01-15 09:26 | HHI.DS ---
Discharge Summary Admission Date Jan 07, 2017 at 16:29 Discharge Date: Jan 15, 2017 Admitting Diagnosis pelvic mass, sigmoid obstruction (1) Pelvic mass in female ICD Codes: R19.00 - Intra-abdominal and pelvic swelling, mass and lump, unspecified site Status: Acute (2) HTN (hypertension) ICD Codes: I10 - Essential (primary) hypertension (3) Syncope ICD Codes: R55 - Syncope and collapse Status: Acute (4) Large bowel obstruction ICD Codes: K56.609 - Unspecified intestinal obstruction, unspecified as to partial versus complete obstruction Status: Acute (5) Anxiety ICD Codes: F41.9 - Anxiety disorder, unspecified Status: Chronic (6) Hyperlipidemia ICD Codes: E78.5 - Hyperlipidemia, unspecified Status: Chronic Consultants Dr. Arita, Dr. Rowe, Dr. Mansfield, Dr. Lane Procedures 01/10/17- Examination under anesthesia, biopsy of vaginal tumor, cystoscopy with Dr. Rowe 01/10/17- Flexible sigmoidoscopy to the sigmoid colon. Exploratory laparotomy and a loop colostomy with Dr. Mansfield s/P Infusaport placement Brief History 71-year-old white female who is relatively healthy but presented to her primary care physician's office today with concern regarding abdominal pain which started yesterday. Pain is in the lower abdomen without any significant reinitiation. She also has noted some constipation over the last 2-3 days. She has a cramping type pain which lasts several seconds with intensity of a 5 out of 10 in pain generally. She has had constant nausea with a couple episodes of clear phlegm posttussive emesis but no significant volume of emesis. Pain seems to be improved with lying flat in the supine position with flexed legs. She notes that she generally passes a fair amount of stool each morning but only had a small bowel movement yesterday morning. No recent change in diet. No fever or chills. Denies any dysuria or hematuria or vaginal discharge. Last colonoscopy was in 2010 with no apparent diverticulosis. CT scan of abdomen and pelvis performed in the ER revealed a 4.2 x 2.8 cm pelvic mass with colonic obstruction due to impingement by the mass. Mass etiology somewhat unclear but not thought to be of bladder origin. More likely colonic or possibly remnant DENTAL SERVICE CHIEF tissue origin. CBC/BMP: 01/13/17 0607 01/13/17 0607 Significant Findings Laboratory Tests Test 01/13/17 06:07 01/13/17 15:54 Red Blood Count 3.37 MIL/MM3 (4.00-5.30) Hemoglobin 9.7 GM/DL (11.6-15.3) Hematocrit 29.2 % (35.0-46.0) Platelet Count 126 TH/MM3 (150-450) Neutrophils (%) (Auto) 82.6 % (16.0-70.0) Lymphocytes (%) (Auto) 5.1 % (9.0-44.0) Monocytes (%) (Auto) 10.6 % (0.0-8.0) Neutrophils # (Auto) 8.8 TH/MM3 (1.8-7.7) Lymphocytes # (Auto) 0.6 TH/MM3 (1.0-4.8) Monocytes # (Auto) 1.1 TH/MM3 (0-0.9) Calcium Level 7.7 MG/DL (8.5-10.1) Sodium Level 135 MEQ/L (136-145) Prothrombin Time 12.3 SEC (9.8-11.6) Imaging Last Impressions Pelvis MRI 01/12/17 0000 Signed Impressions: Service Date/Time: Thursday, January 12, 2017 07:21 - CONCLUSION: 1. Large, irregular malignant appearing low midline pelvic mass as described above. I believe this probably arises from the sigmoid colon but a vaginal origin is not entirely excludable. The degree of associated colonic obstruction appears modestly improved since the CT. 2. Broad area of posterior bladder invasion noted including close to the bilateral ureterovesical junctions and the proximal urethra. Urinary bladder is now decompressed with a Fields catheter. 3. No lymphadenopathy. No evidence of bony metastatic disease. 4. Diffuse soft tissue edema now present, presumably radiation therapy related. 5. Mild right and moderate left hip' right is incidentally noted. Jorge Arnett MD Chest X-Ray 01/12/17 0000 Signed Impressions: Service Date/Time: Thursday, January 12, 2017 12:20 - CONCLUSION: 1. Mild patchy atelectasis versus consolidation at the left lung base. 2. Small left pleural effusion. Geovanny Meraz MD Pelvis Ultrasound 01/08/17 0000 Signed Impressions: Service Date/Time: Sunday, January 08, 2017 08:52 - CONCLUSION: Ultrasound confirms mass in the pelvis and location the vaginal cuff. MRI is suggested. Aj Jarrett MD FACR Abdomen/Pelvis CT 01/07/17 1235 Signed Impressions: Service Date/Time: Saturday, January 07, 2017 14:35 - CONCLUSION: 1. There is a pelvis mass that is obstructing the distal sigmoid colon. It measures approximately 4.2 x 2.8 cm. The colon proximal to this portion is dilated and filled with fluid and fecal material. 2. The pelvis mass abuts the vaginal apex , protrudes into the urinary bladder, and is contiguous with the sigmoid colon mass. Therefore, this could represent a colon cancer that has secondarily invaded the surrounding structures or potentially a DENTAL SERVICE CHIEF malignancy that has secondarily invaded the surrounding structures. Given that the epicenter of the mass is mostly outside of the urinary bladder, it is less likely bladder in origin. 3. Nonacute findings include small hiatal hernia and mild atherosclerotic disease. Jorge Gleason MD PE at Discharge General: NAD, AAOx3 Chest: Crackles at the bases Cardiac: Regular Abd: +BS, soft, colostomy in RUQ with stool present in the back, midline incision is well approximated and no erythema or drainage noted Ext: No edema Hospital Course Pelvic mass in female - comgmt with [employer] [facility] [employer] [facility] and CRS - Pt is a 71 y/o female with anxiety, hyperlipidemia and CKD, stage 3 who presented to the ED at [facility] [place] with complaints of Abd pain and constipation - Pt presented to abdominal pain and constipation. - CT abd/pelvis in the ER revealed a 4.2 x 2.8 cm pelvic mass with colonic obstruction due to impingement by the mass. Mass etiology somewhat unclear but not thought to be of bladder origin. More likely colonic or possibly remnant DENTAL SERVICE CHIEF tissue origin. - The pelvic mass centrally located with some apparent sigmoid colon obstruction unclear if it arises from the vaginal cuff vs colon. - MRI Pelvis (01/12/17) --> Large, irregular malignant appearing low midline pelvic mass. The degree of associated colonic obstruction appears modestly improved since the CT. Broad area of posterior bladder invasion noted including close to the bilateral ureterovesical junctions and the proximal urethra. Urinary bladder is now decompressed with a Fields catheter. No lymphadenopathy. No evidence of bony metastatic disease. Diffuse soft tissue edema now present, presumably radiation therapy related. Mild right and moderate left hip' right is incidentally noted. - Pt underwent vaginal exploration under anesthesia, cystoscopy, sigmoidoscopy, and exploratory laparotomy with loop colostomy placement on 01/10/[address] and Dr. Rowe. She was found to have disease at the top of the vagina which is invading bladder and obstructing the colon. 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 The tumor is at least 8 mm in diameter. The depth of invasion cannot be determined in this biopsy. 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 The tumor is at least 5 mm in diameter and 4 mm in depth - Cytology pathology report final diagnosis urine: Atypical squamous cells with dysplastic features - norco/morphine prn pain - S/P Infusaport placement - resume diet with ADA/soft diet - start scheduled BP medication; prn clonidine & vasotec - PT evaluation - arrange HHC/PT - Case d/w [employer] [facility] [employer] [facility], Dr. Rowe, 01/14/17. - Pt will need one week f/u with Dr. Rowe & with Dr. Lane, Radiation Oncology - tentative plan is for Pelvic Radiation with weekly cisplatin chemotherapy - Case d/w CRS, Dr. Mansfield, (). - anticipate d/c to home with HHC and home PT - DVT prophylaxis with Lovenox HTN (hypertension) - needs improvement - continue lisinopril 10mg PO BID, observe response - prn IV Vasotec, prn PO Catapres Syncope - On 01/12 pt had an episode of syncope after trying to ambulate to the bathroom and was found to be hypoxic with O2 sats in the 60's. Pt was placed on a ventimask at 5L - Her IVF were stopped - CXR (01/12) --> Mild patchy atelectasis versus consolidation at the left lung base. Small left pleural effusion. - Pt is doing better today and back to 2L via NC - No wheezing on exam - Telemetry with some short runs of atrial tachycardia - PT evaluation - Pt has had NO further events Large bowel obstruction - See above Anxiety - Alprazolam as needed. Hyperlipidemia - Follow as outpatient. Pt Condition on Discharge: Stable Discharge Disposition: Disch w/ Home Health Serv Discharge Instructions DIET: Follow Instructions for: Colostomy/Ileostomy Activities you can perform: Regular-No Restrictions Follow up Referrals: Appointment for Follow Up - [address] Lane Appointment for Follow Up - 1 Week with Javi Mansfield MD Oncology - 3-[address] Rowe PCP Follow-up - [address] Teresa [facility]/ with [facility] New Medications: Hydrocodone-Acetaminophen ([place]) 7.5-325 mg Tab 1 TAB PO Q4H PRN for PAIN, #30 TAB 0 Refills Ondansetron (Zofran) 4 Mg Tab 4 MG PO Q8HR PRN for NAUSEA OR VOMITING, #10 TAB 0 Refills Pantoprazole (Protonix) 40 Mg Tab 40 MG PO DAILY for Ulcer Prevention, #30 TAB 0 Refills Lisinopril (Lisinopril) 10 Mg Tab 10 MG PO Q12HR for blood pressure, #60 TAB 0 Refills Ruth King Jan 15, 2017 09:26 Juve Bello MD Jan 15, 2017 15:09
--- NOTE | 2017-01-15 10:15 | HHI.DCPOC ---
Discharge Care Plan Diagnosis: (1) Squamous cell carcinoma (2) Pelvic mass in female (3) Large bowel obstruction Goals to Promote Your Health * To prevent worsening of your condition and complications * To maintain your health at the optimal level Directions to Meet Your Goals Take your medications as prescribed Follow your dietary instruction Follow activity as directed Keep your appointments as scheduled Take your immunizations and boosters as scheduled If your symptoms worsen call your PCP, if no PCP go to Urgent Care Center or Emergency Room Smoking is Dangerous to Your Health. Avoid second hand smoke Call the 24-hour hour crisis hotline for domestic abuse at Ruth King Jan 15, 2017 10:15
[2017-01-15 12:00] VITALS: BP 146/68; PULSE 94; RESP 17; TEMP 97.7; O2SAT 95; O2SAT 96
[2017-01-15 12:20] VITALS: RESP 18
--- NOTE | 2017-01-15 13:55 | HHI.PR ---
Subjective Remarks C/R Surg POD # 5 afebrile, VSS UO adeq stoma functioning output better Objective - Vital Signs Date Time Temp Pulse Resp B/P (MAP) Pulse Ox O2 Delivery O2 Flow Rate FiO2 01/15/17 12:00 97.7 94 17 146/68 (94) 95 01/15/17 08:50 Nasal Cannula 1.00 Result Diagram: 01/13/17 0607 01/13/17 0607 Objective Remarks PE alert Abd - soft, stoma pink. wound softer A/P Assessment and Plan Imp: cont to adv diet port placement dc plans rto 1 week Javi Mansfield MD Jan 15, 2017 13:55
[2017-01-15] MEDS ORDERED: HYDR-3288 PO (15:05)
== END 2017-01-15 15:58 | disposition home health service (06) | DRG 746 ==
LOC: PHEFT 12:11 → PHEDA 16:29 → N04B 20:00 → N07B 01-10 18:28 → N07A 01-10 19:37
PROVIDERS: ADMIT Hospitalist; ATTEND Hospitalist
PROC: 0TJB8ZZ Inspection of Bladder, Via Natural or Artificial Opening Endoscopic (ICD-10-PCS; 2017-01-10)
PROC: 0UBG7ZX Excision of Vagina, Via Natural or Artificial Opening, Diagnostic (ICD-10-PCS; principal; 2017-01-10 16:05)
PROC: 0D1L0Z4 Bypass Transverse Colon to Cutaneous, Open Approach (ICD-10-PCS; 2017-01-10 16:05)
PROC: 0DJD8ZZ Inspection of Lower Intestinal Tract, Via Natural or Artificial Opening Endoscopic (ICD-10-PCS; 2017-01-10 16:05)
PROC: 0JH60XZ Insertion of Tunneled Vascular Access Device into Chest Subcutaneous Tissue and Fascia, Open Approach (ICD-10-PCS; 2017-01-14)
PROC: 05HM33Z Insertion of Infusion Device into Right Internal Jugular Vein, Percutaneous Approach (ICD-10-PCS; 2017-01-14)
DX: C52 Malignant neoplasm of vagina (principal); K56.699 Other intestinal obstruction unspecified as to partial versus complete obstruction; C79.11 Secondary malignant neoplasm of bladder; E88.09 Other disorders of plasma-protein metabolism, not elsewhere classified; I47.1 Supraventricular tachycardia; N18.3 Chronic kidney disease, stage 3 (moderate); I12.9 Hypertensive chronic kidney disease with stage 1 through stage 4 chronic kidney disease, or unspecified chronic kidney disease; E78.5 Hyperlipidemia, unspecified; E55.9 Vitamin D deficiency, unspecified; R55 Syncope and collapse; R09.02 Hypoxemia; F41.9 Anxiety disorder, unspecified; Z80.3 Family history of malignant neoplasm of breast; Z88.0 Allergy status to penicillin; Z87.891 Personal history of nicotine dependence; Z87.410 Personal history of cervical dysplasia; Z91.012 Allergy to eggs
CPT/HCPCS: 36415; 36561; 71010; 71020; 72197; 74177; 76856; 76937; 77001; 77263; 77334; 80048; 80053; 81001; 82105; 82272; 82378; 83690; 83735; 84155; 84443; 85025; 85610; 85730; 86304; 86850; 86900; 86901; 87086; 88305; 88331; 93005; 96361; 96374; 96375; 99152; 99153; 99222; A9579; C1788; C9113; J0131; J0690; J0696; J1642; J1644; J1650; J1940; J1956; J2250; J2270; J2405; J2550; J2590; J2765; J3010; J3370; J3480; J7030; J7040; J7050; J7120; Q9963; Q9967

== ENCOUNTER 2017-02-02 20:43 | Emergency (ER) | payer MEDICARE ==
[~2017-02-02 20:43] MED LIST changes: +HYDR-3288 PO; +LISI10TA3 PO; -MECL25 PO; +PROT40TA PO; -Z.0.NO CURRENT MEDS; +ZOFR4TAB PO
--- NOTE | 2017-02-02 21:11 | PD ---
HPI Chief Complaint: GI Complaint Time Seen by Provider: 21:07 Travel History International Travel<30 days: No Contact w/Intl Traveler<30days: No Traveled to known affect area: No History of Present Illness HPI 71-year-old female with recent diagnosis of vaginal cancer, status post resection currently on chemotherapy on Friday with radiation Friday through Friday presents to emergency department for evaluation of nausea and vomiting since receiving chemotherapy 2 days ago. He states that this happened the last time she had chemotherapy however this time it is worse. She denies any fever or chills. No hematemesis. Her colostomy is with normal output. She is also reporting lower abdominal pain, moderate to severe, nonradiating, where she is receiving radiation. She is due for her pain medication at this time. Patient has no other symptoms to report. He is followed by Dr. Soledad LADD Past Medical History Autoimmune Disease: No Anxiety: Yes Depression: No Cardiovascular Problems: No Chemotherapy: No Diminished Hearing: No Endocrine: No Gastrointestinal Disorders: Yes (at present sigmoid obstruction) GERD: No Genitourinary: Yes Hiatal Hernia: No Immune Disorder: No Kidney Stones: No Musculoskeletal: No Neurologic: No Psychiatric: Yes Reproductive: Yes (Ovaries removed) Respiratory: No Radiation Therapy: No Renal Failure: No Ulcer: No Influenza Vaccination: No Ovarian Cysts: Yes (BILATERAL OOPHERECTOMY, PER PT UTERUS STILL INTACT) Past Surgical History Abdominal Surgery: No Cardiac Surgery: No Ear Surgery: No Endocrine Surgery: No Eye Surgery: No Genitourinary Surgery: No Gynecologic Surgery: Yes (Ovaries removed) Oral Surgery: No Other Surgery: Yes Social History Alcohol Use: No Tobacco Use: No Substance Use: No Allergies-Medications (Allergen,Severity, Reaction): Coded Allergies: egg (Verified Allergy, Severe, 02/02/17) succinylcholine (Verified Allergy, Severe, 02/02/17) penicillin G (Verified Allergy, Unknown, 02/02/17) Reported Meds & Prescriptions Reported Meds & Active Scripts Active Vandiver (Hydrocodone-Acetaminophen) 7.5-325 mg Tab 1 Tab PO Q4H PRN Zofran (Ondansetron HCl) 4 Mg Tab 4 Mg PO Q8HR PRN Protonix (Pantoprazole Sodium) 40 Mg Tab 40 Mg PO DAILY Lisinopril 10 Mg Tab 10 Mg PO Q12HR Review of Systems Except as stated in HPI: all other systems reviewed are Neg Physical Exam Narrative GENERAL: Chronically ill-appearing female patient, sitting in bed, in no acute distress. SKIN: Focused skin assessment warm/dry. HEAD: Atraumatic. Normocephalic. EYES: Pupils equal and round. No scleral icterus. No injection or drainage. ENT: No nasal bleeding or discharge. Mucous membranes pink and moist. NECK: Trachea midline. No JVD. CARDIOVASCULAR: Regular rate and rhythm. No murmur appreciated. RESPIRATORY: No accessory muscle use. Clear to auscultation. Breath sounds equal bilaterally. GASTROINTESTINAL: Abdomen soft, nondistended. Tenderness to light palpation lower abdomen.. Patient does have a right lower quadrant colostomy in place. Stool is brown. Hepatic and splenic margins not palpable. MUSCULOSKELETAL: No obvious deformities. No clubbing. No cyanosis. No edema. NEUROLOGICAL: Awake and alert. No obvious cranial nerve deficits. Motor grossly within normal limits. Normal speech. PSYCHIATRIC: Appropriate mood and affect; insight and judgment normal. Data Data Last Documented VS Vital Signs Date Time Temp Pulse Resp B/P (MAP) Pulse Ox O2 Delivery O2 Flow Rate FiO2 02/02/17 21:26 72 16 176/70 (105) Room Air Orders Orders Complete Blood Count With Diff (02/02/17 21:14) Comprehensive Metabolic Panel (02/02/17 21:14) Lipase (02/02/17 21:14) Urinalysis - C+S If Indicated (02/02/17 21:14) Iv Access Insert/Monitor (02/02/17 21:14) Ecg Monitoring (02/02/17 21:14) Oximetry (02/02/17 21:14) Morphine Inj (Morphine Inj) (02/02/17 21:15) Ondansetron Inj (Zofran Inj) (02/02/17 21:15) Sodium Chlor 0.9% 1000 Ml Inj (Ns 1000 M (02/02/17 21:14) Sodium Chloride 0.9% Flush (Ns Flush) (02/02/17 21:15) Labs Laboratory Tests Test 02/02/17 22:00 White Blood Count 16.1 TH/MM3 Red Blood Count 3.12 MIL/MM3 Hemoglobin 8.7 GM/DL Hematocrit 27.1 % Mean Corpuscular Volume 87.0 FL Mean Corpuscular Hemoglobin 27.9 PG Mean Corpuscular Hemoglobin Concent 32.1 % Red Cell Distribution Width 14.9 % Platelet Count 229 TH/MM3 Mean Platelet Volume 7.1 FL Neutrophils (%) (Auto) 93.2 % Lymphocytes (%) (Auto) 1.3 % Monocytes (%) (Auto) 5.0 % Eosinophils (%) (Auto) 0.1 % Basophils (%) (Auto) 0.4 % Neutrophils # (Auto) 15.0 TH/MM3 Lymphocytes # (Auto) 0.2 TH/MM3 Monocytes # (Auto) 0.8 TH/MM3 Eosinophils # (Auto) 0.0 TH/MM3 Basophils # (Auto) 0.1 TH/MM3 CBC Comment DIFF FINAL Differential Comment MDM Medical Decision Making Medical Screen Exam Complete: Yes Emergency Medical Condition: Yes Medical Record Reviewed: Yes Differential Diagnosis Chemotherapy-induced nausea and vomiting versus electro-lyte abnormality versus gastritis Narrative Course 71-year-old female presents versus [facility] for evaluation of nausea and vomiting since receiving chemotherapy 2 days ago. Patient appears chronically ill but nontoxic. Her vital signs are stable. Lab work is ordered to evaluate for electro-lyte abnormality. Patient is treated for pain and nausea. Patient has known anemia and is scheduled for transfusion tomorrow. 2300 lab work is still pending. Patient is signed out to my attending physician who will disposition her her judgment. Diagnosis Primary Impression: Chemotherapy-induced nausea and vomiting Condition: Stable Samantha Drew Feb 02, 2017 21:11
[2017-02-02] MEDS ORDERED: SODIUM CHLOR 0.9% 1000 ML INJ 1,000 ML IV SCH (21:14)
[2017-02-02] MEDS ORDERED: SODIUM CHLORIDE 0.9% FLUSH 10 ML FLUSH IV FLUSH PRN (21:15)
[2017-02-02] MEDS ORDERED: ONDANSETRON HCL 4 MG/2 ML VIAL IVP ONE (21:15)
[2017-02-02] MEDS ORDERED: MORPHINE SULFATE 4 MG/ML INJ IV PUSH ONE (21:15)
[2017-02-02 21:26] VITALS: BP 176/70; PULSE 72; RESP 16
[2017-02-02 22:25] LABS: BASOPHIL # 0.1 TH/MM3 (0-0.2); BASOPHIL % 0.4 % (0.0-2.0); EOSINOPHIL % 0.1 % (0.0-4.0); HEMATOCRIT 27.1 % (35.0-46.0); HEMO FLAGS DIFF FINAL; LYMPH % 1.3 % (9.0-44.0); LYMPHOCYTE # 0.2 TH/MM3 (1.0-4.8); MEAN CORPUSCULAR HEMOGLOBIN 27.9 PG (27.0-34.0); MEAN CORPUSCULAR HGB CONC 32.1 % (32.0-36.0); NEUT % 93.2 % (16.0-70.0); PLATELET COUNT 229 TH/MM3 (150-450); RED BLOOD COUNT 3.12 MIL/MM3 (4.00-5.30); RED CELL DISTRIBUTION WIDTH 14.9 % (11.6-17.2); WHITE BLOOD COUNT 16.1 TH/MM3 (4.0-11.0)
[2017-02-02 22:42] LABS: ANION GAP 10 MEQ/L (5-15); AST (GOT) 16 U/L (15-37); BICARBONATE 22.7 MEQ/L (21.0-32.0); BLOOD UREA NITROGEN 19 MG/DL (7-18); CHLORIDE 100 MEQ/L (98-107); GLOMERULAR FILTRATION RATE 35 ML/MIN (>89); SODIUM (NA) 133 MEQ/L (136-145)
[2017-02-02 22:46] LABS: ALKALINE PHOSPHATASE 111 U/L (45-117); ALT (GPT) 15 U/L (10-53); TOTAL BILIRUBIN ADULT 0.7 MG/DL (0.2-1.0)
[2017-02-03 00:42] LABS: BACTERIA, URINE RARE /hpf; BLOOD, URINE MOD (NEG); COMMENT (UR) CULTURE INDICATED; CULTURE IF INDICATED CULTURE INDICATED; GLUCOSE,URINE NEG (NEG); KETONE, URINE NEG (NEG); MUCUS URINE FEW /lpf (OCC); NITRITE,URINE NEG (NEG); PH, URINE 6.5 (5.0-8.5); SQUAMOUS EPITHELIAL CELL URINE <1 /hpf (0-5); URINE COLOR LIGHT-YELLOW (YELLW/STRAW)
[2017-02-03] MEDS ORDERED: MACR100C2 PO (00:50)
[2017-02-03] MEDS ORDERED: PROC25SU22 RECTAL (00:50)
--- NOTE | 2017-02-03 00:50 | PD ---
Physical Exam Date Seen by Provider: Feb 03, 2017 Narrative This patient presents with nausea and vomiting related to chemotherapy. She states that the medication that she was given initially here helped for a while but that the nausea is coming back. She further states that the Zofran that she has at home for nausea does not help. Data Data Last Documented VS Vital Signs Date Time Temp Pulse Resp B/P (MAP) Pulse Ox O2 Delivery O2 Flow Rate FiO2 02/02/17 21:26 72 16 176/70 (105) Room Air Orders Orders Complete Blood Count With Diff (02/02/17 21:14) Comprehensive Metabolic Panel (02/02/17 21:14) Lipase (02/02/17 21:14) Urinalysis - C+S If Indicated (02/02/17 21:14) Iv Access Insert/Monitor (02/02/17 21:14) Ecg Monitoring (02/02/17 21:14) Oximetry (02/02/17 21:14) Morphine Inj (Morphine Inj) (02/02/17 21:15) Ondansetron Inj (Zofran Inj) (02/02/17 21:15) Sodium Chlor 0.9% 1000 Ml Inj (Ns 1000 M (02/02/17 21:14) Sodium Chloride 0.9% Flush (Ns Flush) (02/02/17 21:15) Urine Culture (02/02/17 23:50) Prochlorperazine Inj (Compazine Inj) (02/03/17 01:00) Diphenhydramine Inj (Benadryl Inj) (02/03/17 01:00) Labs Laboratory Tests Test 02/02/17 22:00 02/02/17 23:50 White Blood Count 16.1 TH/MM3 Red Blood Count 3.12 MIL/MM3 Hemoglobin 8.7 GM/DL Hematocrit 27.1 % Mean Corpuscular Volume 87.0 FL Mean Corpuscular Hemoglobin 27.9 PG Mean Corpuscular Hemoglobin Concent 32.1 % Red Cell Distribution Width 14.9 % Platelet Count 229 TH/MM3 Mean Platelet Volume 7.1 FL Neutrophils (%) (Auto) 93.2 % Lymphocytes (%) (Auto) 1.3 % Monocytes (%) (Auto) 5.0 % Eosinophils (%) (Auto) 0.1 % Basophils (%) (Auto) 0.4 % Neutrophils # (Auto) 15.0 TH/MM3 Lymphocytes # (Auto) 0.2 TH/MM3 Monocytes # (Auto) 0.8 TH/MM3 Eosinophils # (Auto) 0.0 TH/MM3 Basophils # (Auto) 0.1 TH/MM3 CBC Comment DIFF FINAL Differential Comment Blood Urea Nitrogen 19 MG/DL Creatinine 1.48 MG/DL Random Glucose 100 MG/DL Total Protein 6.5 GM/DL Albumin 2.2 GM/DL Calcium Level 8.1 MG/DL Alkaline Phosphatase 111 U/L Aspartate Amino Transf (AST/SGOT) 16 U/L Alanine Aminotransferase (ALT/SGPT) 15 U/L Total Bilirubin 0.7 MG/DL Sodium Level 133 MEQ/L Potassium Level 4.0 MEQ/L Chloride Level 100 MEQ/L Carbon Dioxide Level 22.7 MEQ/L Anion Gap 10 MEQ/L Estimat Glomerular Filtration Rate 35 ML/MIN Lipase 41 U/L Urine Color LIGHT-YELLOW Urine Turbidity CLEAR Urine pH 6.5 Urine Specific [place] 1.005 Urine Protein TRACE mg/dL Urine Glucose (UA) NEG mg/dL Urine Ketones NEG mg/dL Urine Occult Blood MOD Urine Nitrite NEG Urine Bilirubin NEG Urine Urobilinogen LESS THAN 2.0 MG/DL Urine Leukocyte Esterase LARGE Urine RBC 28 /hpf Urine WBC 11 /hpf Urine Squamous Epithelial Cells <1 /hpf Urine Bacteria RARE /hpf Urine Mucus FEW /lpf Microscopic Urinalysis Comment CULTURE INDICATED MDM Supervised Visit with SARINA: Yes Narrative Course CBC & BMP Diagram 02/02/17 22:00 Total Protein 6.5, Albumin 2.2 L, Calcium Level 8.1 L, Alkaline Phosphatase 111 , Aspartate Amino Transf (AST/SGOT) 16, Alanine Aminotransferase (ALT/SGPT) 15, Total Bilirubin 0.7 UA>>large LE, 28 RBCs, 11 WBCs I will give her Rocephin here for UTI and then discharge her on Macrobid. Diagnosis Primary Impression: Chemotherapy-induced nausea and vomiting Additional Impression: Urinary tract infection Qualified Codes: N30.00 - Acute cystitis without hematuria Patient Instructions: Acute Nausea and Vomiting (DC), General Instructions, Urinary Tract Infection in (GEN) Med/Other Pt SpecificInfo: Prescription(s) given Scripts Prochlorperazine Supp (Prochlorperazine Supp) 25 Mg Supp 25 MG RECTAL Q6H Y for NAUSEA OR VOMITING, #30 SUPP 0 Refills Prov: Hayde Miller MD 02/03/17 Nitrofurantoin Monohydrate Macrocrystals (Macrobid) 100 Mg Cap 100 MG PO BID for Infection for 5 Days, #10 CAP 0 Refills Prov: Hayde Miller MD 02/03/17 Condition: Stable Hayde Miller MD Feb 03, 2017 00:50
[2017-02-03] MEDS ORDERED: PROCHLORPERAZINE INJ 10 MG/2 ML VIAL IV PUSH ONE (01:00)
[2017-02-03] MEDS ORDERED: cefTRIAXone INJ 1,000 MG in SODIUM CHLORIDE 0.9% INJ 100 ML IV ONE (01:00)
[2017-02-03] MEDS ORDERED: diphenhydrAMINE HCL 50 MG/ML VIAL IV PUSH ONE (01:00)
== END 2017-02-03 01:47 | disposition home or self-care (01) ==
LOC: NEPE 20:43
DX: R11.2 Nausea with vomiting, unspecified (principal); D64.9 Anemia, unspecified; R03.0 Elevated blood-pressure reading, without diagnosis of hypertension; B96.89 Other specified bacterial agents as the cause of diseases classified elsewhere; B95.2 Enterococcus as the cause of diseases classified elsewhere; F41.9 Anxiety disorder, unspecified; Z79.899 Other long term (current) drug therapy; Z88.0 Allergy status to penicillin; Z88.8 Allergy status to other drugs, medicaments and biological substances
CPT/HCPCS: 80053; 81001; 83690; 85025; 87077; 87086; 87186; 96374; 96375; 99285; J0696; J0780; J1200; J2270; J2405; J7030

== ENCOUNTER 2017-02-12 10:32 | Inpatient (IN) | payer MEDICARE ==
[~2017-02-12] VITALS: Ht 165.1 cm; Wt 70.5 kg
[~2017-02-12 10:32] MED LIST changes: +MACR100C2 PO; +PROC25SU22 RECTAL
[2017-02-12 10:33] VITALS: BP 126/74; PULSE 122; RESP 18; TEMP 98.4; O2SAT 98
[2017-02-12] MEDS ORDERED: ALPR0.25 PO (10:55)
[2017-02-12 11:00] VITALS: BP 176/81; PULSE 88; RESP 20; O2SAT 98
--- NOTE | 2017-02-12 11:11 | PD ---
HPI Chief Complaint: Cardiac Complaint Time Seen by Provider: 11:10 Travel History International Travel<30 days: No Contact w/Intl Traveler<30days: No Traveled to known affect area: No History of Present Illness HPI 71-year-old female sent to the emergency department with history of large DVT in the right leg noted on ultrasound at [facility]. Patient was sent here by her primary care doctor Dr. Schmid. Patient is an oncology patient of Dr. 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 Patient currently has a colostomy in place. Patient is not complaining of right leg pain, swelling, or other symptoms. She is generally weak, which she feels is due to the chemotherapy and radiation treatments. Patient has had trouble keeping down any food or fluids down. Patient otherwise has no acute complaints. She is allergic to eggs, penicillin, and succinylcholine. PFSH Past Medical History Autoimmune Disease: No Anxiety: Yes Depression: No Cancer: Yes (pelvic mass squamous cell ) Cardiovascular Problems: Yes Chemotherapy: Yes Diminished Hearing: No Endocrine: No Gastrointestinal Disorders: Yes (hx sigmoid obstruction) GERD: No Genitourinary: Yes Hiatal Hernia: No Immune Disorder: No Kidney Stones: No Musculoskeletal: No Neurologic: No Psychiatric: Yes Reproductive: Yes (Ovaries removed) Respiratory: No Radiation Therapy: No Renal Failure: No Ulcer: No Ovarian Cysts: Yes (BILATERAL OOPHERECTOMY, PER PT UTERUS STILL INTACT) Past Surgical History Abdominal Surgery: No Cardiac Surgery: No Ear Surgery: No Endocrine Surgery: No Eye Surgery: No Genitourinary Surgery: No Gynecologic Surgery: Yes (Ovaries removed) Oral Surgery: No Other Surgery: Yes Social History Alcohol Use: No Tobacco Use: No Substance Use: No Allergies-Medications (Allergen,Severity, Reaction): Coded Allergies: egg (Verified Allergy, Severe, 02/12/17) succinylcholine (Verified Allergy, Severe, 02/12/17) penicillin G (Verified Allergy, Unknown, 02/12/17) Reported Meds & Prescriptions Reported Meds & Active Scripts Active Prochlorperazine Supp (Prochlorperazine) 25 Mg Supp 25 Mg RECTAL Q6H PRN Macrobid (Nitrofurantoin Monoh/Nitrofur Macro) 100 Mg Cap 100 Mg PO BID 5 Days [place] (Hydrocodone-Acetaminophen) 7.5-325 mg Tab 1 Tab PO Q4H PRN Zofran (Ondansetron HCl) 4 Mg Tab 4 Mg PO Q8HR PRN Protonix (Pantoprazole Sodium) 40 Mg Tab 40 Mg PO DAILY Lisinopril 10 Mg Tab 10 Mg PO Q12HR Reported Alprazolam 0.25 Mg Tab 0.25 Mg PO TID PRN Review of Systems Except as stated in HPI: all other systems reviewed are Neg General / Constitutional: No: Fever, Chills Eyes: No: Visual changes HENT: Positive: Lightheadedness, No: Headaches, Vertigo, Sore Throat, Rhinitis , Rhinorrhea, Congestion, Nosebleed, Neck Stiffness, Neck Pain Cardiovascular: Positive: Dyspnea on exertion, No: Chest Pain or Discomfort, Palpitations, Irregular Rhythm, Tachycardia, Diaphoresis, Syncope, Varicosities , Edema, Cyanosis, Varicosities, Phlebitis, Claudication, Other Respiratory: Positive: Shortness of Breath (with exertion.), No: Cough, Wheezing, Sneezing Gastrointestinal: No: Nausea, Vomiting, Diarrhea, Abdominal Pain Genitourinary: Positive: Decreased Urinary Output, No: Dysuria Musculoskeletal: No: Myalgias, Pain Skin: No Rash Neurologic: No: Weakness Psychiatric: No: Depression Endocrine: No: Polydipsia Hematologic/Lymphatic: No: Easy Bruising Physical Exam Narrative GENERAL: Patient appears in no obvious distress. SKIN: Warm and dry. Decreased turgor with tenting present. Normal pallor. HEAD: Atraumatic. Normocephalic. EYES: Pupils equal and round. No scleral icterus. No injection or drainage. ENT: No nasal bleeding or discharge. Mucous membranes pink and moist. NECK: Trachea midline. Supple and nontender. CARDIOVASCULAR: Regular rate and rhythm. No murmurs gallops or rubs. RESPIRATORY: No accessory muscle use. Clear to auscultation. Breath sounds equal bilaterally. GASTROINTESTINAL: Abdomen soft, non-tender, nondistended. Hepatic and splenic margins not palpable. MUSCULOSKELETAL: Extremities without clubbing, cyanosis, or edema. No obvious deformities. No increased pain with palpation of the right lower extremity. Negative Homans sign. Neurovascular exam is normal. NEUROLOGICAL: Awake and alert. No obvious cranial nerve deficits. Motor grossly within normal limits. Five out of 5 muscle strength in the arms and legs. Normal speech. PSYCHIATRIC: Appropriate mood and affect; insight and judgment normal. Data Data Last Documented VS Vital Signs Date Time Temp Pulse Resp B/P (MAP) Pulse Ox O2 Delivery O2 Flow Rate FiO2 02/12/17 11:00 88 20 176/81 (112) 98 Room Air 02/12/17 10:33 98.4 Orders Orders Electrocardiogram (02/12/17 11:16) Complete Blood Count With Diff (02/12/17 11:16) Comprehensive Metabolic Panel (02/12/17 11:16) Magnesium (Mg) (02/12/17 11:16) Act Partial Throm Time (Ptt) (02/12/17 11:16) Prothrombin Time / Inr (Pt) (02/12/17 11:16) Urinalysis - C+S If Indicated (02/12/17 11:16) Chest, Single Ap (02/12/17 11:16) Ecg Monitoring (02/12/17 11:16) Iv Access Insert/Monitor (02/12/17 11:16) Oximetry (02/12/17 11:16) Ondansetron Inj (Zofran Inj) (02/12/17 11:30) Sodium Chloride 0.9% Flush (Ns Flush) (02/12/17 11:30) Sodium Chlor 0.9% 1000 Ml Inj (Ns 1000 M (02/12/17 11:16) Ventilation & Perfusion Scan (02/12/17 ) Urine Culture (02/12/17 12:54) Nitrofurantoin Monohyd Macrocr (Macrobid (02/12/17 13:30) Heparin Inj (Heparin Inj) (02/12/17 16:15) Heparin-D5w 25,000 U/250 Ml (Heparin-D5w (02/12/17 16:15) Act Partial Throm Time (Ptt) (02/12/17 16:07) Prothrombin Time / Inr (Pt) (02/12/17 16:07) Cbc No Diff, Includes Plts (02/12/17 16:07) Cbc No Diff, Includes Plts (02/15/17 06:00) Act Partial Throm Time (Ptt) (02/12/17 23:07) Occult Blood (Hemoccult) Stool (02/12/17 16:07) Admit To Inpatient (02/12/17 ) Vital Signs (Adult) Q4H (02/12/17 16:27) Activity Oob With Assistance (02/12/17 16:27) Diet Heart Healthy (02/12/17 Dinner) Sodium Chloride 0.9% Flush (Ns Flush) (02/12/17 16:30) Sodium Chloride 0.9% Flush (Ns Flush) (02/12/17 21:00) Acetaminophen (Tylenol) (02/12/17 16:30) Ondansetron Inj (Zofran Inj) (02/12/17 16:30) Basic Metabolic Panel (Bmp) (02/13/17 06:00) Complete Blood Count With Diff (02/13/17 06:00) Pt Request For Service (02/12/17 16:27) Scd Bilateral/Knee High JESSICA.BID (02/12/17 16:27) Naloxone Inj (Narcan Inj) (02/12/17 16:30) Magnesium Hydroxide Liq (Milk Of Magnesi (02/12/17 16:30) Inpatient Certification (02/12/17 ) Consult Medical Oncology (02/12/17 ) Ns + Kcl 20 Meq Inj (Ns + Kcl 20 Meq Inj (02/12/17 16:45) Admit Order (Ed Use Only) (02/12/17 16:30) Consult Hematology (02/12/17 ) Labs Laboratory Tests Test 02/12/17 11:28 02/12/17 12:54 02/12/17 16:17 White Blood Count 5.7 TH/MM3 Red Blood Count 3.87 MIL/MM3 Hemoglobin 10.8 GM/DL Hematocrit 33.4 % Mean Corpuscular Volume 86.3 FL Mean Corpuscular Hemoglobin 27.9 PG Mean Corpuscular Hemoglobin Concent 32.4 % Red Cell Distribution Width 14.3 % Platelet Count 47 TH/MM3 Mean Platelet Volume 8.2 FL Neutrophils (%) (Auto) 88.8 % Lymphocytes (%) (Auto) 4.1 % Monocytes (%) (Auto) 6.4 % Eosinophils (%) (Auto) 0.4 % Basophils (%) (Auto) 0.3 % Neutrophils # (Auto) 5.1 TH/MM3 Lymphocytes # (Auto) 0.2 TH/MM3 Monocytes # (Auto) 0.4 TH/MM3 Eosinophils # (Auto) 0.0 TH/MM3 Basophils # (Auto) 0.0 TH/MM3 CBC Comment AUTO DIFF Differential Comment AUTO DIFF CONFIRMED Prothrombin Time 10.7 SEC Prothromb Time International Ratio 1.1 RATIO Activated Partial Thromboplast Time 23.1 SEC Blood Urea Nitrogen 23 MG/DL Creatinine 1.46 MG/DL Random Glucose 114 MG/DL Total Protein 7.1 GM/DL Albumin 2.7 GM/DL Calcium Level 8.7 MG/DL Magnesium Level 1.9 MG/DL Alkaline Phosphatase 145 U/L Aspartate Amino Transf (AST/SGOT) 30 U/L Alanine Aminotransferase (ALT/SGPT) 46 U/L Total Bilirubin 0.8 MG/DL Sodium Level 130 MEQ/L Potassium Level 3.6 MEQ/L Chloride Level 97 MEQ/L Carbon Dioxide Level 22.1 MEQ/L Anion Gap 11 MEQ/L Estimat Glomerular Filtration Rate 35 ML/MIN Urine Color YELLOW Urine Turbidity HAZY Urine pH 5.5 Urine Specific [place] 1.014 Urine Protein 30 mg/dL Urine Glucose (UA) NEG mg/dL Urine Ketones NEG mg/dL Urine Occult Blood MOD Urine Nitrite NEG Urine Bilirubin NEG Urine Urobilinogen LESS THAN 2.0 MG/DL Urine Leukocyte Esterase LARGE Urine RBC 16 /hpf Urine WBC 56 /hpf Urine WBC Clumps RARE Urine Squamous Epithelial Cells <1 /hpf Urine Transitional Epithelial Cells <1 /hpf Urine Bacteria RARE /hpf Urine Hyaline Casts 1 /lpf Microscopic Urinalysis Comment CULTURE INDICATED MDM Medical Decision Making Medical Screen Exam Complete: Yes Emergency Medical Condition: Yes Medical Record Reviewed: Yes Differential Diagnosis Right lower leg DVT. Generalized weakness. Electrolyte imbalance. Dehydration. Narrative Course Patient appears stable at time of exam. Labs ordered including CBC, CMP, PT PTT and INR, magnesium, urinalysis. EKG and chest x-ray ordered. Patient is discussed with Dr. Rabago. Call was placed to Dr. Teresa, as well as Dr. Alford. Call was also placed to Dr. Mansfield, the surgeon who performed her surgeon in December. Dr. Mansfield felt it was safe to place the patient on anticoagulation a surgical standpoint. CBC shows slightly low hemoglobin of 10.8, hematocrit of 33.4. More concerning is a platelet count of 47. Coagulation study shows a PT of 10.7, INR 1.1, APTT of 23.1. BUN is 23, creatinine is 1.46, GFR is 35. Alkaline phosphatase elevated 145. Albumin is 2.7. Urinalysis is suggestive of urinary tract infection. Patient is given Macrobid 100 mg by mouth. Chest x-ray is unremarkable for acute process. EKG however shows sinus tachycardic rhythm without significant ST-T changes. Due to the patient's DVT history and her tachycardia. A VQ scan was ordered in place of CTA due to the patient's creatinine clearance. VQ scan is determined to be of high probability for PE. Patient was discussed with Dr. Rabago who recommended starting the patient on a heparin drip for PE/DVT, and hospitalization. Recommend hematology consult based on the patient's platelet count, as well as oncology consult with the patient's ongoing chemotherapy for her cancer. Call was placed to the [facility] hospitalist for admission. Diagnosis Primary Impression: DVT (deep venous thrombosis) Qualified Codes: I82.491 - Acute embolism and thrombosis of other specified deep vein of right lower extremity Additional Impressions: Pulmonary embolism Qualified Codes: I26.99 - Other pulmonary embolism without acute cor pulmonale Temporary low platelet count Urinary tract infection Qualified Codes: N30.00 - Acute cystitis without hematuria Admitting Information Admitting Physician Requests: Admit Condition: Stable Javi Mensah Feb 12, 2017 11:11
[2017-02-12] MEDS ORDERED: SODIUM CHLOR 0.9% 1000 ML INJ 1,000 ML IV ONE (11:16)
[2017-02-12] MEDS ORDERED: ONDANSETRON HCL 4 MG/2 ML VIAL IVP ONE (11:30)
[2017-02-12] MEDS ORDERED: SODIUM CHLORIDE 0.9% FLUSH 10 ML FLUSH IVF PRN (11:30)
--- NOTE | 2017-02-12 11:58 | RADRPT ---
EXAM DATE/TIME: 02/12/2017 11:33 [facility] COMPARISON: CHEST SINGLE AP, January 12, 2017, 12:20. INDICATIONS : Syncope. MEDICAL HISTORY : Carcinoma, colon. SURGICAL HISTORY : Infusaport. ENCOUNTER: Initial ACUITY: 1 day PAIN SCORE: 0/10 LOCATION: Bilateral chest FINDINGS: A single view of the chest demonstrates the lungs to be symmetrically aerated without evidence of mas s, infiltrate or effusion. The cardiomediastinal contours are unremarkable. Osseous structures are intact. A Port-A-Cath overlies the right chest. CONCLUSION: No acute disease. Sid Chaves Jr., MD on February 12, 2017 at 11:55 Board Certified Radiologist. This report was verified electronically.
[2017-02-12 11:59] LABS: AUTOMATED NEUTROPHIL # 5.1 TH/MM3 (1.8-7.7); BASOPHIL % 0.3 % (0.0-2.0); EOSINOPHIL % 0.4 % (0.0-4.0); HEMATOCRIT 33.4 % (35.0-46.0); LYMPH % 4.1 % (9.0-44.0); LYMPHOCYTE # 0.2 TH/MM3 (1.0-4.8); MEAN CELL VOLUME 86.3 FL (80.0-100.0); MEAN CORPUSCULAR HEMOGLOBIN 27.9 PG (27.0-34.0); MEAN CORPUSCULAR HGB CONC 32.4 % (32.0-36.0); MONO % 6.4 % (0.0-8.0); NEUT % 88.8 % (16.0-70.0); PLATELET COUNT 47 TH/MM3 (150-450); RED BLOOD COUNT 3.87 MIL/MM3 (4.00-5.30); RED CELL DISTRIBUTION WIDTH 14.3 % (11.6-17.2); WHITE BLOOD COUNT 5.7 TH/MM3 (4.0-11.0)
[2017-02-12 12:02] LABS: HEMO FLAGS AUTO DIFF
[2017-02-12 12:09] LABS: APTT (PATIENT) 23.1 SEC (24.3-30.1); INTERNATIONAL NORMALIZED RATIO 1.1 RATIO; PROTHROMBIN TIME - PATIENT 10.7 SEC (9.8-11.6)
[2017-02-12 12:18] LABS: ALT (GPT) 46 U/L (10-53); ANION GAP 11 MEQ/L (5-15); AST (GOT) 30 U/L (15-37); BICARBONATE 22.1 MEQ/L (21.0-32.0); BLOOD UREA NITROGEN 23 MG/DL (7-18); CHLORIDE 97 MEQ/L (98-107); GLOMERULAR FILTRATION RATE 35 ML/MIN (>89); MAGNESIUM 1.9 MG/DL (1.5-2.5); POTASSIUM 3.6 MEQ/L (3.5-5.1); SODIUM (NA) 130 MEQ/L (136-145)
[2017-02-12 12:21] LABS: ALKALINE PHOSPHATASE 145 U/L (45-117); TOTAL BILIRUBIN ADULT 0.8 MG/DL (0.2-1.0)
[2017-02-12 12:39] LABS: SCAN/DIFF AUTO DIFF CONFIRMED
[2017-02-12 13:05] LABS: BACTERIA, URINE RARE /hpf; BLOOD, URINE MOD (NEG); GLUCOSE,URINE NEG (NEG); HYALINE CAST, URINE 1 /lpf (RARE); KETONE, URINE NEG (NEG); NITRITE,URINE NEG (NEG); PH, URINE 5.5 (5.0-8.5); SQUAMOUS EPITHELIAL CELL URINE <1 /hpf (0-5); TRANSITIONAL EPI CELLS, URINE <1 /hpf; URINE COLOR YELLOW (YELLW/STRAW)
[2017-02-12 13:06] LABS: COMMENT (UR) CULTURE INDICATED; CULTURE IF INDICATED CULTURE INDICATED
[2017-02-12] MEDS ORDERED: NITROFURANTOIN MONOHYD MACROCR 100 MG CAP PO ONE (13:30)
--- NOTE | 2017-02-12 16:03 | RADRPT ---
EXAM DATE/TIME: 02/12/2017 14:45 [facility] COMPARISON: No previous studies available for comparison. INDICATIONS : Dyspnea with DVT. DOSE: 8.5 mCi Tc99m MAA IV 1.1 mCi Tc99m DTPA aerosol MEDICAL HISTORY : Deep venous thrombosis. Carcinoma, squamous cell. SURGICAL HISTORY : Hysterectomy. Colostomy. ENCOUNTER: Initial ACUITY: 1 day PAIN SCALE: 0/10 LOCATION: Chest. TECHNIQUE: Following five minutes of tidal breathing of DTPA aerosol, planar images of the lungs were performed in eight projections. The patient was then injected with MAA, and eight-view perfusion scan was perf ormed. FINDINGS: There is a homogeneous pattern of aerosol delivery to the periphery of both lungs. No focal ventilat ory defects are seen. There are perfusion defects in the right lung with normal ventilation. CONCLUSION: Intermediate to high probability for pulmonary embolism in this patient with previous thrombosis. Aj Jarrett MD FACR on February 12, 2017 at 15:59 Board Certified Radiologist. This report was verified electronically.
[2017-02-12] MEDS ORDERED: HEPARIN SODIUM - IV 10,000 UNITS/10 ML VIAL IV PUSH ONE (16:15)
--- NOTE | 2017-02-12 16:24 | PD ---
Data Data Last Documented VS Vital Signs Date Time Temp Pulse Resp B/P (MAP) Pulse Ox O2 Delivery O2 Flow Rate FiO2 02/12/17 10:33 98.4 122 18 126/74 (91) 98 Orders Orders Electrocardiogram (02/12/17 11:16) Complete Blood Count With Diff (02/12/17 11:16) Comprehensive Metabolic Panel (02/12/17 11:16) Magnesium (Mg) (02/12/17 11:16) Act Partial Throm Time (Ptt) (02/12/17 11:16) Prothrombin Time / Inr (Pt) (02/12/17 11:16) Urinalysis - C+S If Indicated (02/12/17 11:16) Chest, Single Ap (02/12/17 11:16) Ecg Monitoring (02/12/17 11:16) Iv Access Insert/Monitor (02/12/17 11:16) Oximetry (02/12/17 11:16) Ondansetron Inj (Zofran Inj) (02/12/17 11:30) Sodium Chloride 0.9% Flush (Ns Flush) (02/12/17 11:30) Sodium Chlor 0.9% 1000 Ml Inj (Ns 1000 M (02/12/17 11:16) Ventilation & Perfusion Scan (02/12/17 ) Urine Culture (02/12/17 12:54) Nitrofurantoin Monohyd Macrocr (Macrobid (02/12/17 13:30) Heparin Inj (Heparin Inj) (02/12/17 16:15) Heparin-D5w 25,000 U/250 Ml (Heparin-D5w (02/12/17 16:15) Act Partial Throm Time (Ptt) (02/12/17 16:07) Prothrombin Time / Inr (Pt) (02/12/17 16:07) Cbc No Diff, Includes Plts (02/12/17 16:07) Cbc No Diff, Includes Plts (02/15/17 06:00) Act Partial Throm Time (Ptt) (02/12/17 23:07) Occult Blood (Hemoccult) Stool (02/12/17 16:07) Labs Laboratory Tests Test 02/12/17 11:28 02/12/17 12:54 White Blood Count 5.7 TH/MM3 Red Blood Count 3.87 MIL/MM3 Hemoglobin 10.8 GM/DL Hematocrit 33.4 % Mean Corpuscular Volume 86.3 FL Mean Corpuscular Hemoglobin 27.9 PG Mean Corpuscular Hemoglobin Concent 32.4 % Red Cell Distribution Width 14.3 % Platelet Count 47 TH/MM3 Mean Platelet Volume 8.2 FL Neutrophils (%) (Auto) 88.8 % Lymphocytes (%) (Auto) 4.1 % Monocytes (%) (Auto) 6.4 % Eosinophils (%) (Auto) 0.4 % Basophils (%) (Auto) 0.3 % Neutrophils # (Auto) 5.1 TH/MM3 Lymphocytes # (Auto) 0.2 TH/MM3 Monocytes # (Auto) 0.4 TH/MM3 Eosinophils # (Auto) 0.0 TH/MM3 Basophils # (Auto) 0.0 TH/MM3 CBC Comment AUTO DIFF Differential Comment AUTO DIFF CONFIRMED Prothrombin Time 10.7 SEC Prothromb Time International Ratio 1.1 RATIO Activated Partial Thromboplast Time 23.1 SEC Blood Urea Nitrogen 23 MG/DL Creatinine 1.46 MG/DL Random Glucose 114 MG/DL Total Protein 7.1 GM/DL Albumin 2.7 GM/DL Calcium Level 8.7 MG/DL Magnesium Level 1.9 MG/DL Alkaline Phosphatase 145 U/L Aspartate Amino Transf (AST/SGOT) 30 U/L Alanine Aminotransferase (ALT/SGPT) 46 U/L Total Bilirubin 0.8 MG/DL Sodium Level 130 MEQ/L Potassium Level 3.6 MEQ/L Chloride Level 97 MEQ/L Carbon Dioxide Level 22.1 MEQ/L Anion Gap 11 MEQ/L Estimat Glomerular Filtration Rate 35 ML/MIN Urine Color YELLOW Urine Turbidity HAZY Urine pH 5.5 Urine Specific [place] 1.014 Urine Protein 30 mg/dL Urine Glucose (UA) NEG mg/dL Urine Ketones NEG mg/dL Urine Occult Blood MOD Urine Nitrite NEG Urine Bilirubin NEG Urine Urobilinogen LESS THAN 2.0 MG/DL Urine Leukocyte Esterase LARGE Urine RBC 16 /hpf Urine WBC 56 /hpf Urine WBC Clumps RARE Urine Squamous Epithelial Cells <1 /hpf Urine Transitional Epithelial Cells <1 /hpf Urine Bacteria RARE /hpf Urine Hyaline Casts 1 /lpf Microscopic Urinalysis Comment CULTURE INDICATED MDM Supervised Visit with SARINA: Yes Narrative Course The history, exam, and medical decision-making in the associated midlevel provider note were completed with my assistance. I reviewed and agree with the findings presented. I attest that I had a [id number] encounter with the patient on the same day, and personally performed and documented my assessment and findings in the medical record. *My assessment and Findings: This is a 71-year-old female was a history of a gynecologic cancer having had a loop colostomy placed one month ago by Dr. Mansfield in the setting of a bowel obstruction who presents to the emergency department having been diagnosed as an outpatient with extensive DVT. She has been increasingly short of breath and weak ever since she started chemotherapy. Labs are obtained. She has evidence of urinary tract infection and thrombocytopenia. She's on cisplatin. We spoke to Dr. Mansfield as well as Dr. Rowe' physician [employer] who were comfortable putting the patient on anticoagulation. VQ scan was obtained which demonstrates intermediate to high risk for pulmonary embolism. Patient will be placed on heparin and admitted. She also has a urinary tract infection. Diagnosis Primary Impression: DVT (deep venous thrombosis) Qualified Codes: I82.491 - Acute embolism and thrombosis of other specified deep vein of right lower extremity Additional Impressions: Urinary tract infection Qualified Codes: N30.00 - Acute cystitis without hematuria Pulmonary embolism Qualified Codes: I26.99 - Other pulmonary embolism without acute cor pulmonale Temporary low platelet count Condition: Stable Karly Rabago MD Feb 12, 2017 16:24
[2017-02-12] MEDS ORDERED: SODIUM CHLORIDE 0.9% FLUSH 10 ML FLUSH IV FLUSH PRN (16:30)
[2017-02-12] MEDS ORDERED: ONDANSETRON HCL 4 MG/2 ML VIAL IVP PRN (16:30)
[2017-02-12] MEDS ORDERED: ACETAMINOPHEN 325 MG TAB PO PRN (16:30)
[2017-02-12] MEDS ORDERED: MAGNESIUM HYDROXIDE SUSP 30 ML CUP PO PRN (16:30)
[2017-02-12] MEDS ORDERED: NALOXONE HCL 0.4 MG/ML AMP IV PUSH PRN (16:30)
[2017-02-12 16:34] LABS: HEMATOCRIT 29.3 % (35.0-46.0); MEAN CELL VOLUME 85.7 FL (80.0-100.0); MEAN CORPUSCULAR HEMOGLOBIN 28.1 PG (27.0-34.0); MEAN CORPUSCULAR HGB CONC 32.8 % (32.0-36.0); RED BLOOD COUNT 3.41 MIL/MM3 (4.00-5.30); RED CELL DISTRIBUTION WIDTH 14.1 % (11.6-17.2); WHITE BLOOD COUNT 5.5 TH/MM3 (4.0-11.0)
--- NOTE | 2017-02-12 16:37 | HHI.HP ---
HPI Service [facility] Hospitalists Primary Care Physician Tianna Teresa MD Admission Diagnosis Travel History International Travel<30 Days: No Contact w/Intl Traveler <30 Da: No Traveled to Known Affected Are: No History of Present Illness Pt is a 71 y/o female with anxiety, hyperlipidemia and CKD, stage 3 who [place] [facility] [place] of Abd pain and constipation. Pt underwent vaginal exploration under anesthesia, cystoscopy, sigmoidoscopy, and exploratory laparotomy with loop colostomy placement on 01/10/[address] Mansfield and Dr. Rowe. She was found to have disease at the top of the vagina which is invading bladder and obstructing the colon. Intra-operative frozen sections were consistent with squamous cell carcinoma. 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 The tumor is at least 8 mm in diameter. The depth of invasion cannot be determined in this biopsy. 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 The tumor is at least 5 mm in diameter and 4 mm in depth. Cytology pathology report final diagnosis urine: Atypical squamous cells with dysplastic features. Patient following outpatient with Dr. Rowe currently undergoing chemotherapy Patient presents to the ER today VQ scan obtained and revealed: high probability for PE, patient started on heparin drip per ER. Plt 47,000. 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 Reported Medications Prochlorperazine Supp (Prochlorperazine) 25 Mg Supp 25 Mg RECTAL Q6H PRN Macrobid (Nitrofurantoin Monoh/Nitrofur Macro) 100 Mg Cap 100 Mg PO BID 5 Days [place] (Hydrocodone-Acetaminophen) 7.5-325 mg Tab 1 Tab PO Q4H PRN Zofran (Ondansetron HCl) 4 Mg Tab 4 Mg PO Q8HR PRN Protonix (Pantoprazole Sodium) 40 Mg Tab 40 Mg PO DAILY Lisinopril 10 Mg Tab 10 Mg PO Q12HR Alprazolam 0.25 Mg Tab 0.25 Mg PO TID PRN Allergies: Coded Allergies: egg (Verified Allergy, Severe, 02/12/17) succinylcholine (Verified Allergy, Severe, 02/12/17) penicillin G (Verified Allergy, Unknown, 02/12/17) Active Ordered Medications Current Medications Medications (Trade) Dose Ordered Sig/Gregg Route Start Time Stop Time Status Last Admin (NS Flush) 2 ml UNSCH PRN IVF 02/12/17 11:30 Heparin Sodium/ Dextrose 250 ml @ 12.6 mls/hr TITRATE PRN IV 02/12/17 16:15 UNV Family History Noted for myocardial infarction, breast cancer diabetes and Parkinson's Social History No tobacco since January 2011 but prior to that smoked half pack per day for 30 years. 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 SKIN: No rashes, ecchymoses or lesions. Cool and dry. HEAD: Atraumatic. Normocephalic. No temporal or scalp tenderness. EYES: Pupils equal round and reactive. Extraocular motions intact. No scleral icterus. No injection or drainage. ENT: Nose without bleeding, purulent drainage or septal hematoma. Throat without erythema, tonsillar hypertrophy or exudate. Uvula midline. Airway patent. NECK: Trachea midline. No JVD or lymphadenopathy. Supple, nontender, no meningeal signs. CARDIOVASCULAR: Regular rate and rhythm without murmurs, gallops, or rubs. RESPIRATORY: Clear to auscultation. Breath sounds equal bilaterally. No wheezes , rales, or rhonchi. GASTROINTESTINAL: Abdomen soft, non-tender, nondistended. No hepato-splenomegaly , or palpable masses. No guarding. MUSCULOSKELETAL: Extremities without clubbing, cyanosis, or edema. No joint tenderness, effusion, or edema noted. No calf tenderness. Negative Homans sign bilaterally. NEUROLOGICAL: Awake and alert. Cranial nerves II through XII intact. Motor and sensory grossly within normal limits. Five out of 5 muscle strength in all muscle groups. Normal speech. Laboratory Laboratory Tests Test 02/12/17 11:28 02/12/17 12:54 02/12/17 16:17 White Blood Count 5.7 Red Blood Count 3.87 Hemoglobin 10.8 Hematocrit 33.4 Mean Corpuscular Volume 86.3 Mean Corpuscular Hemoglobin 27.9 Mean Corpuscular Hemoglobin Concent 32.4 Red Cell Distribution Width 14.3 Platelet Count 47 Mean Platelet Volume 8.2 Neutrophils (%) (Auto) 88.8 Lymphocytes (%) (Auto) 4.1 Monocytes (%) (Auto) 6.4 Eosinophils (%) (Auto) 0.4 Basophils (%) (Auto) 0.3 Neutrophils # (Auto) 5.1 Lymphocytes # (Auto) 0.2 Monocytes # (Auto) 0.4 Eosinophils # (Auto) 0.0 Basophils # (Auto) 0.0 CBC Comment AUTO DIFF Differential Comment AUTO DIFF CONFIRMED Prothrombin Time 10.7 Prothromb Time International Ratio 1.1 Activated Partial Thromboplast Time 23.1 Blood Urea Nitrogen 23 Creatinine 1.46 Random Glucose 114 Total Protein 7.1 Albumin 2.7 Calcium Level 8.7 Magnesium Level 1.9 Alkaline Phosphatase 145 Aspartate Amino Transf (AST/SGOT) 30 Alanine Aminotransferase (ALT/SGPT) 46 Total Bilirubin 0.8 Sodium Level 130 Potassium Level 3.6 Chloride Level 97 Carbon Dioxide Level 22.1 Anion Gap 11 Estimat Glomerular Filtration Rate 35 Urine Color YELLOW Urine Turbidity HAZY Urine pH 5.5 Urine Specific Stella 1.014 Urine Protein 30 Urine Glucose (UA) NEG Urine Ketones NEG Urine Occult Blood MOD Urine Nitrite NEG Urine Bilirubin NEG Urine Urobilinogen LESS THAN 2.0 Urine Leukocyte Esterase LARGE Urine RBC 16 Urine WBC 56 Urine WBC Clumps RARE Urine Squamous Epithelial Cells <1 Urine Transitional Epithelial Cells <1 Urine Bacteria RARE Urine Hyaline Casts 1 Microscopic Urinalysis Comment CULTURE INDICATED Date/Time Source Procedure Growth Status 02/12/17 12:54 Urine Clean Catch Urine Culture Pending Received Result Diagram: 02/12/178 02/12/178 Caprini VTE Risk Assessment Caprini VTE Risk Assessment: Mod/High Risk (score >= 2) Caprini Risk Assessment Model Point Value = 1 Point Value = 2 Point Value = 3 Point Value = 5 Age 41-60 Minor surgery BMI > 25 kg/m2 Swollen legs Varicose veins or History of unexplained or recurrent spontaneous Oral contraceptives or hormone replacement Sepsis (< 1 month) Serious lung disease, including pneumonia (< 1 month) Abnormal pulmonary function Acute myocardial infarction Congestive heart failure (< 1 month) History of inflammatory bowel disease Medical patient at bed rest Age 61-74 Arthroscopic surgery Major open surgery (> 45 min) Laparoscopic surgery (> 45 min) Malignancy Confined to bed (> 72 hours) Immobilizing plaster cast Central venous access Age >= 75 History of VTE Family history of VTE Factor V Leiden Prothrombin [id number] Lupus anticoagulant Anticardiolipin antibodies Elevated serum homocysteine Heparin-induced thrombocytopenia Other congenital or acquired thrombophilia Stroke (< 1 month) Elective arthroplasty Hip, pelvis, or leg fracture Acute spinal cord injury (< 1 month) Prophylaxis Regimen Total Risk Factor Score Risk Level Prophylaxis Regimen 0-1 Low Early ambulation 2 Moderate Order ONE of the following: *Sequential Compression Device (SCD) *Heparin 5000 units SQ BID 3-4 Higher Order ONE of the following medications: *Heparin 5000 units SQ TID *Enoxaparin/Lovenox 40 mg SQ daily (WT < 150 kg, CrCl > 30 mL/min) *Enoxaparin/Lovenox 30 mg SQ daily (WT < 150 kg, CrCl > 10-29 mL/min) *Enoxaparin/Lovenox 30 mg SQ BID (WT < 150 kg, CrCl > 30 mL/min) AND/OR *Sequential Compression Device (SCD) 5 or more Highest Order ONE of the following medications: *Heparin 5000 units SQ TID (Preferred with Epidurals) *Enoxaparin/Lovenox 40 mg SQ daily (WT < 150 kg, CrCl > 30 mL/min) *Enoxaparin/Lovenox 30 mg SQ daily (WT < 150 kg, CrCl > 10-29 mL/min) *Enoxaparin/Lovenox 30 mg SQ BID (WT < 150 kg, CrCl > 30 mL/min) AND *Sequential Compression Device (SCD) Assessment and Plan Problem List: (1) Pulmonary embolism ICD Codes: I26.99 - Other pulmonary embolism without acute cor pulmonale Status: Acute Plan: - Pt is a 71 y/o female with anxiety, hyperlipidemia and CKD, stage 3 who [place] [facility] [place] of Abd pain and constipation - Pt underwent vaginal exploration under anesthesia, cystoscopy, sigmoidoscopy, and exploratory laparotomy with loop colostomy placement on 01/10/[address] Mansfield and Dr. Rowe. She was found to have disease at the top of the vagina which is invading bladder and obstructing the colon. 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 The tumor is at least 8 mm in diameter. The depth of invasion cannot be determined in this biopsy. 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 The tumor is at least 5 mm in diameter and 4 mm in depth - Cytology pathology report final diagnosis urine: Atypical squamous cells with dysplastic features Patient presents to the ER today VQ scan obtained and revealed: high probability for PE, patient started on heparin drip per ER - Plt 47,000 - consult placed to hematology/oncology for further anticoagulation recommendations (2) DVT (deep venous thrombosis) ICD Codes: I82.409 - Acute embolism and thrombosis of unspecified deep veins of unspecified lower extremity Status: Acute Plan: see above (3) Squamous cell carcinoma ICD Codes: C44.92 - Squamous cell carcinoma of skin, unspecified Plan: follows with Dr. Rowe recently received chemo therapy supportive care and IV fluids (4) Urinary tract infection ICD Codes: N39.0 - Urinary tract infection, site not specified Status: Acute Plan: Rocephin IV await culture results Assessment and Plan Patient examined. Assessment and plan formulated with Ruth King PA-C. I agree with the above. Physician Certification 2 Midnight Certification Type: Admission for Inpatient Services Order for Inpatient Services The services are ordered in accordance with Medicare regulations or non- Medicare payer requirements, as applicable. In the case of services not specified as inpatient-only, they are appropriately provided as inpatient services in accordance with the 2-midnight benchmark. Estimated LOS (days): 3 days is the estimated time the patient will need to remain in the hospital, assuming treatment plan goals are met and no additional complications. Post-Hospital Plan: Not yet determined Problem Qualifiers (1) Pulmonary embolism: Qualified Codes: I26.99 - Other pulmonary embolism without acute cor pulmonale (2) DVT (deep venous thrombosis): Qualified Codes: I82.491 - Acute embolism and thrombosis of other specified deep vein of right lower extremity (3) Urinary tract infection: Qualified Codes: N30.00 - Acute cystitis without hematuria Ruth King Feb 12, 2017 16:37 Javed Olguin DO Feb 14, 2017 22:29
[2017-02-12 16:40] LABS: APTT (PATIENT) 22.3 SEC (24.3-30.1); INTERNATIONAL NORMALIZED RATIO 1.1 RATIO; PROTHROMBIN TIME - PATIENT 10.8 SEC (9.8-11.6)
[2017-02-12 16:43] VITALS: BP 174/81; PULSE 95; RESP 17; O2SAT 99
[2017-02-12] MEDS ORDERED: ACETAMINOPHEN/HYDROcodone 325 MG/7.5 MG TAB PO PRN (16:45)
[2017-02-12] MEDS ORDERED: ALPRAZolam 0.25 MG TAB PO PRN (16:45)
[2017-02-12 17:05] LABS: REVIEW FLAG FINAL
[2017-02-12 17:06] LABS: PLATELET COUNT 42 TH/MM3 (150-450)
[2017-02-12] MEDS: HEPARIN-D5W 25,000 U/250 ML 250 ML IV PRN (17:06)
[2017-02-12 18:22] VITALS: BP 167/84
[2017-02-12 18:58] VITALS: BP 189/84; PULSE 88; RESP 20; TEMP 98.1; O2SAT 100
[2017-02-12] MEDS ORDERED: ENALAPRILAT 1.25 MG/ML VIAL IV PRN (19:15)
[2017-02-12 20:00] VITALS: BP 178/80; PULSE 84; RESP 18; TEMP 97.4; O2SAT 98
[2017-02-12] MEDS ORDERED: WARFARIN SOD 2.5 MG TAB PO ONE (20:30)
[2017-02-12] MEDS: LISINOPRIL 10 MG TAB PO SCH (21:42)
[2017-02-12] MEDS: SODIUM CHLORIDE 0.9% FLUSH 10 ML FLUSH IV FLUSH SCH (21:43)
[2017-02-12] MEDS: NS + KCL 20 MEQ INJ 1,000 ML IV SCH (23:23)
[2017-02-13] VITALS (7 sets, daily range): BP systolic 111–167; BP diastolic 55–78; PULSE 78–100; RESP 18–20; TEMP 97.2–98.2; O2SAT 95–100
[2017-02-13 00:24] LABS: APTT (PATIENT) 129.7 SEC (24.3-30.1)
[2017-02-13 03:24] LABS: APTT (PATIENT) 102.1 SEC (24.3-30.1)
[2017-02-13] MEDS: NS + KCL 20 MEQ INJ 1,000 ML IV SCH ×2 (04:46→16:32)
[2017-02-13] MEDS: cloNIDine HCL 0.2 MG TAB PO PRN (05:53)
[2017-02-13 06:28] LABS: AUTOMATED NEUTROPHIL # 4.1 TH/MM3 (1.8-7.7); BASOPHIL % 0.3 % (0.0-2.0); EOSINOPHIL % 0.4 % (0.0-4.0); HEMATOCRIT 28.3 % (35.0-46.0); LYMPH % 4.7 % (9.0-44.0); LYMPHOCYTE # 0.2 TH/MM3 (1.0-4.8); MEAN CELL VOLUME 86.4 FL (80.0-100.0); MEAN CORPUSCULAR HEMOGLOBIN 28.6 PG (27.0-34.0); MONO % 6.3 % (0.0-8.0); NEUT % 88.3 % (16.0-70.0); PLATELET COUNT 36 TH/MM3 (150-450); RED BLOOD COUNT 3.28 MIL/MM3 (4.00-5.30); RED CELL DISTRIBUTION WIDTH 14.5 % (11.6-17.2); WHITE BLOOD COUNT 4.7 TH/MM3 (4.0-11.0)
[2017-02-13 06:39] LABS: HEMO FLAGS AUTO DIFF
[2017-02-13 07:00] LABS: BICARBONATE 22.5 MEQ/L (21.0-32.0); POTASSIUM 3.7 MEQ/L (3.5-5.1)
[2017-02-13 07:37] LABS: PLATELET ESTIMATE SMEAR LOW (NORMAL); PLATELET MORPHOLOGY NORMAL (NORMAL); SCAN/DIFF AUTO DIFF CONFIRMED
--- NOTE | 2017-02-13 07:55 | MB ---
cc: NICO OLGUIN RUBY ANNE E. M.D. DATE OF 1945 DATE OF SERVICE 02/12/[address] Olguin CHIEF COM[address] Olguin requested consultation for Mrs. Escobar regarding thrombocytopenia associated with deep vein thromboses. HISTORY OF PRESENT ILLNESS Mrs. Escobar is a 71-year-old woman, well-known patient to Dr. Giovanna Rowe. She presented with abdominal pain, decreased appetite, nausea, difficulty having bowel movements. Imaging studies show a central pelvic mass measuring 4.2 cm. She had a diverting colostomy. She had a vaginal biopsied by Dr. Rowe. The pathology showed squamous cell carcinoma. She had disease involving the bladder and obstruction of the sigmoid colon. Because of extensive disease in the upper vagina invading the bladder and compressing the bowel, she was treated with combined chemotherapy and radiation. She complains of fatigue associated with the chemotherapy and radiation. She also had a lot of nausea and hyperemesis. She has been seen in the emergency room several times for it. She developed right leg swelling for some time. She reports that it came and went. Finally she was diagnosed with extensive right lower extremity DVT at [facility]. She was following up with Dr. Teresa in clinic. She complained of symptoms of nausea and vomiting. She was weak. She had persistent leg swelling. She was referred to the emergency room for shortness of breath and weakness. A VQ scan showed intermediate to high risk for pulmonary embolism. She was admitted and placed on unfractionated heparin. During her hospitalization laboratory evaluation showed a mild normocytic anemia and thrombocytopenia. Her platelet count is 42,000 at the time of the consultation. Hemoglobin is 9.6. She receives chemotherapy on Fridays. She had a last platelet count of 103,000 on February 06, 2017. Prior to that they were normal in over 200,000 range. She denies any bleeding. No melena or bright red blood per rectum. She denies any falls. She has decreased p.o. intake because of nausea associated with chemotherapy. These suppository antiemetic therapy seems to be working well. PAST MEDICAL HISTORY 1. Chronic kidney disease. 2. Anxiety. 3. History of esophagitis. 4. Hyperlipidemia. 5. Locally advanced vaginal squamous cell cancer. 6. Vitamin D deficiency. PAST SURGICAL HISTORY 1. Cervical biopsy. 2. Cervical conization. 3. Total abdominal hysterectomy and bilateral oophorectomy. 4. Biopsy for severe vaginal dysplasia. FAMILY HISTORY Significant for myocardial infarction. other family members with breast cancer, diabetes and Parkinson's. 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 She is . She drinks occasionally. He has a 15 pack-year smoking history and quit in 2010. ALLERGIES EGG. SUCCINYLCHOLINE. PENICILLIN G. CURRENT MEDICATIONS 1. Protonix. 2. Lisinopril. 3. Catapres. 4. Vasotec p.r.n. 5. Xanax p.r.n. 6. [place] p.r.n. 7. Unfractionated heparin. PHYSICAL EXAMINATION VITAL SIGNS: Temperature 98.1, heart rate 88, respiratory rate 20, blood pressure 189/84, saturation 100%. GENERAL: Ms. Escobar is a well-developed, well-nourished obese woman in no acute distress. HEENT: Her pupils are round, reactive to light and accommodation. Oropharynx is clear. NECK: Supple with no adenopathy. LUNGS: Clear. CARDIOVASCULAR: Exam reveals a normal rate and rhythm. ABDOMEN: Large and benign. There is a colostomy in the right upper quadrant. LOWER EXTREMITES: With asymmetry, right leg more prominent than the left. Good pulses. NEUROLOGICAL EXAMINATION: Nonfocal. LABORATORY DATA Significant for hyponatremia - sodium 130, BUN of 23, creatinine 1.4. Platelet counts 42,000. ASSESSMENT AND PLAN Mrs. Escobar is a 71-year-old woman with multiple medical problems described above. She is admitted with a symptoms of fatigue and nausea. 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 Her course is complicated by extensive right lower extremity deep vein thromboses and high probability pulmonary embolism. She has associated thrombocytopenia with diagnosis of deep vein thromboses. She has no bleeding. We discussed the contribution of chemotherapy, radiation and the deep vein thrombosis to the thrombocytopenia. I recommend continued anticoagulant therapy with unfractionated heparin. I anticipate that the platelet count would increase. She may not be able to receive her weekly cisplatin in light of her thrombocytopenia this week. We will monitor closely. We discussed the risks and benefits of anticoagulant therapy for deep vein thromboses. We discussed the difference between Coumadin and a new oral anticoagulant. She has agreed with Dr. Olguin to proceed with anticoagulant therapy with Coumadin. We discussed the cost, the PT/INR constraints, and the reversibility of Coumadin with Kcentra. We discussed the risk and benefit of the new oral anticoagulants as pertains to cost, no reversal agents and concern with her renal insufficiency. She is comfortable to proceed with anticoagulant therapy with Coumadin. We discussed need to monitor closely to keep her INR therapeutic in the midst of chemotherapy, nausea and vomiting and fatigue symptoms. No specific therapy is required for the thrombocytopenia as this is associated with chemotherapy, deep vein thromboses or radiation. Supportive treatment is continued. We will monitor for bleeding. Kareen Hollingsworth MD RAD/OSKAR /8:15 PM /7:27 AM
[2017-02-13] MEDS: LISINOPRIL 10 MG TAB PO SCH ×2 (09:00→21:55)
[2017-02-13] MEDS: SODIUM CHLORIDE 0.9% FLUSH 10 ML FLUSH IV FLUSH SCH ×2 (09:00→21:56)
[2017-02-13] MEDS: PANTOPRAZOLE SOD 40 MG DELAYED RELEASE TAB PO SCH (09:13)
[2017-02-13 10:01] LABS: APTT (PATIENT) 19.1 SEC (24.3-30.1)
--- NOTE | 2017-02-13 12:15 | HHI.PR ---
Subjective Remarks Nurse reports per blood with clots passed earlier today during urination Patient denies feeling lightheaded or dizzy VSS Stat H&H pending Objective Vitals Vital Signs Date Time Temp Pulse Resp B/P (MAP) Pulse Ox O2 Delivery O2 Flow Rate FiO2 02/13/17 08:00 98.1 80 18 111/63 (79) 95 02/13/17 04:00 98.2 91 18 164/77 (106) 99 02/13/17 00:00 97.2 78 18 167/78 (107) 98 02/12/17 20:00 97.4 84 18 178/80 (112) 98 02/12/17 18:58 98.1 88 20 189/84 (119) 100 02/12/17 18:22 85 19 167/84 (111) 97 02/12/17 16:43 95 17 174/81 (112) 99 Room Air 02/13/17 02/13/17 02/14/17 15:00 23:00 07:00 Output Total 100 ml Balance -100 ml Stool Total 100 ml # Voids 2 Result Diagram: 02/13/17 0600 02/13/17 0600 Other Results Laboratory Tests Test 02/12/17 11:28 02/12/17 12:54 02/12/17 16:17 02/12/17 22:42 White Blood Count 5.7 TH/MM3 5.5 TH/MM3 Red Blood Count 3.87 MIL/MM3 3.41 MIL/MM3 Hemoglobin 10.8 GM/DL 9.6 GM/DL Hematocrit 33.4 % 29.3 % Mean Corpuscular Volume 86.3 FL 85.7 FL Mean Corpuscular Hemoglobin 27.9 PG 28.1 PG Mean Corpuscular Hemoglobin Concent 32.4 % 32.8 % Red Cell Distribution Width 14.3 % 14.1 % Platelet Count 47 TH/MM3 42 TH/MM3 Mean Platelet Volume 8.2 FL 7.8 FL Neutrophils (%) (Auto) 88.8 % Lymphocytes (%) (Auto) 4.1 % Monocytes (%) (Auto) 6.4 % Eosinophils (%) (Auto) 0.4 % Basophils (%) (Auto) 0.3 % Neutrophils # (Auto) 5.1 TH/MM3 Lymphocytes # (Auto) 0.2 TH/MM3 Monocytes # (Auto) 0.4 TH/MM3 Eosinophils # (Auto) 0.0 TH/MM3 Basophils # (Auto) 0.0 TH/MM3 CBC Comment AUTO DIFF Differential Comment AUTO DIFF CONFIRMED Prothrombin Time 10.7 SEC 10.8 SEC Prothromb Time International Ratio 1.1 RATIO 1.1 RATIO Activated Partial Thromboplast Time 23.1 SEC 22.3 SEC 129.7 SEC Blood Urea Nitrogen 23 MG/DL Creatinine 1.46 MG/DL Random Glucose 114 MG/DL Total Protein 7.1 GM/DL Albumin 2.7 GM/DL Calcium Level 8.7 MG/DL Magnesium Level 1.9 MG/DL Alkaline Phosphatase 145 U/L Aspartate Amino Transf (AST/SGOT) 30 U/L Alanine Aminotransferase (ALT/SGPT) 46 U/L Total Bilirubin 0.8 MG/DL Sodium Level 130 MEQ/L Potassium Level 3.6 MEQ/L Chloride Level 97 MEQ/L Carbon Dioxide Level 22.1 MEQ/L Anion Gap 11 MEQ/L Estimat Glomerular Filtration Rate 35 ML/MIN Urine Color YELLOW Urine Turbidity HAZY Urine pH 5.5 Urine Specific [place] 1.014 Urine Protein 30 mg/dL Urine Glucose (UA) NEG mg/dL Urine Ketones NEG mg/dL Urine Occult Blood MOD Urine Nitrite NEG Urine Bilirubin NEG Urine Urobilinogen LESS THAN 2.0 MG/DL Urine Leukocyte Esterase LARGE Urine RBC 16 /hpf Urine WBC 56 /hpf Urine WBC Clumps RARE Urine Squamous Epithelial Cells <1 /hpf Urine Transitional Epithelial Cells <1 /hpf Urine Bacteria RARE /hpf Urine Hyaline Casts 1 /lpf Microscopic Urinalysis Comment CULTURE INDICATED Test 02/13/17 02:49 02/13/17 06:00 02/13/17 09:00 Activated Partial Thromboplast Time 102.1 SEC 19.1 SEC White Blood Count 4.7 TH/MM3 Red Blood Count 3.28 MIL/MM3 Hemoglobin 9.4 GM/DL Hematocrit 28.3 % Mean Corpuscular Volume 86.4 FL Mean Corpuscular Hemoglobin 28.6 PG Mean Corpuscular Hemoglobin Concent 33.0 % Red Cell Distribution Width 14.5 % Platelet Count 36 TH/MM3 Mean Platelet Volume 8.0 FL Neutrophils (%) (Auto) 88.3 % Lymphocytes (%) (Auto) 4.7 % Monocytes (%) (Auto) 6.3 % Eosinophils (%) (Auto) 0.4 % Basophils (%) (Auto) 0.3 % Neutrophils # (Auto) 4.1 TH/MM3 Lymphocytes # (Auto) 0.2 TH/MM3 Monocytes # (Auto) 0.3 TH/MM3 Eosinophils # (Auto) 0.0 TH/MM3 Basophils # (Auto) 0.0 TH/MM3 CBC Comment AUTO DIFF Differential Comment AUTO DIFF CONFIRMED Platelet Estimate LOW Platelet Morphology Comment NORMAL Blood Urea Nitrogen 20 MG/DL Creatinine 1.17 MG/DL Random Glucose 79 MG/DL Calcium Level 7.8 MG/DL Sodium Level 134 MEQ/L Potassium Level 3.7 MEQ/L Chloride Level 103 MEQ/L Carbon Dioxide Level 22.5 MEQ/L Anion Gap 9 MEQ/L Estimat Glomerular Filtration Rate 45 ML/MIN Imaging Last Impressions Chest X-Ray 02/12/17 1116 Signed Impressions: Service Date/Time: Sunday, February 12, 2017 11:33 - CONCLUSION: No acute disease. Sid Chaves Jr., MD Lung Scan-VQ Nuclear Medicine 02/12/17 0000 Signed Impressions: Service Date/Time: Sunday, February 12, 2017 14:45 - CONCLUSION: Intermediate to high probability for pulmonary embolism in this patient with previous thrombosis. Aj Jarrett MD FACR Objective Remarks GENERAL: This is a well-nourished, well-developed patient, in no apparent distress. CARDIOVASCULAR: Regular rate and rhythm without murmurs, gallops, or rubs. RESPIRATORY: Clear to auscultation. Breath sounds equal bilaterally. No wheezes , rales, or rhonchi. GASTROINTESTINAL: Abdomen soft, non-tender, nondistended. MUSCULOSKELETAL: Extremities without clubbing, cyanosis, or edema. No joint tenderness, effusion, or edema noted. No calf tenderness. Negative Homans sign bilaterally. NEUROLOGICAL: Awake and alert. No focal deficits noted. Motor and sensory grossly within normal limits. Five out of 5 muscle strength in all muscle groups. Normal speech. A/P Problem List: (1) Pulmonary embolism ICD Codes: I26.99 - Other pulmonary embolism without acute cor pulmonale Status: Acute Plan: - Pt is a 71 y/o female with anxiety, hyperlipidemia and CKD, stage 3 who [place] [facility] [place] complaints of Abd pain and constipation - Pt underwent vaginal exploration under anesthesia, cystoscopy, sigmoidoscopy, and exploratory laparotomy with loop colostomy placement on 01/10/[address] and Dr. Rowe. She was found to have disease at the top of the vagina which is invading bladder and obstructing the colon. 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 The tumor is at least 8 mm in diameter. The depth of invasion cannot be determined in this biopsy. 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 The tumor is at least 5 mm in diameter and 4 mm in depth - Cytology pathology report final diagnosis urine: Atypical squamous cells with dysplastic features Patient presents to the ER today VQ scan obtained and revealed: high probability for PE, patient started on heparin drip per ER - Plt 47,000 (02/12) -> 37,000 (02/13) - consult placed to hematology/oncology for further anticoagulation recommendations, appreciate input. Recommending initialization of Coumadin with heparin drip until INR therapeutic - per blood with clots passed during urination patient asymptomatic, VSS, stat H&H pending - will continue hep drip at this time due to risks associated with DVT and PE - discussed with Dr. Hollingsworth. Also called placed to Dr. Rowe awaiting a return call Discharge planning - Patient is not yet stable for DC - per hematology recommendations: Coumadin with heparin drip until INR therapeutic (2) DVT (deep venous thrombosis) ICD Codes: I82.409 - Acute embolism and thrombosis of unspecified deep veins of unspecified lower extremity Status: Acute Plan: see above (3) Squamous cell carcinoma ICD Codes: C44.92 - Squamous cell carcinoma of skin, unspecified Plan: follows with Dr. Rowe recently received chemo therapy supportive care and IV fluids (4) Urinary tract infection ICD Codes: N39.0 - Urinary tract infection, site not specified Status: Acute Plan: Urine culture results showed 10-50,000 mixed mayra Asymptomatic no further abx (5) Diarrhea ICD Codes: R19.7 - Diarrhea, unspecified Plan: possibly related to chemo/radiation C Diff ordered and pending C diff positive Start Flagyl 500mg Q8H Assessment and Plan Patient examined. Assessment and plan formulated with Ruth King PA-C. I agree with the above. Problem Qualifiers (1) Pulmonary embolism: Qualified Codes: I26.99 - Other pulmonary embolism without acute cor pulmonale (2) DVT (deep venous thrombosis): Qualified Codes: I82.491 - Acute embolism and thrombosis of other specified deep vein of right lower extremity (3) Urinary tract infection: Qualified Codes: N30.00 - Acute cystitis without hematuria Ruth King Feb 13, 2017 12:15 Javed Olguin DO Feb 14, 2017 22:29
[2017-02-13 14:14] LABS: HEMATOCRIT 26.5 % (35.0-46.0); MEAN CELL VOLUME 86.2 FL (80.0-100.0); MEAN CORPUSCULAR HEMOGLOBIN 28.3 PG (27.0-34.0); MEAN CORPUSCULAR HGB CONC 32.8 % (32.0-36.0); PLATELET COUNT 34 TH/MM3 (150-450); RED BLOOD COUNT 3.07 MIL/MM3 (4.00-5.30); RED CELL DISTRIBUTION WIDTH 14.1 % (11.6-17.2); WHITE BLOOD COUNT 4.2 TH/MM3 (4.0-11.0)
[2017-02-13 14:23] LABS: REVIEW FLAG FINAL
--- NOTE | 2017-02-13 15:41 | EKG ---
Date Performed: 02/12/2017 Time Performed: 11:59:55 PTAGE: 71 years EKG: Sinus rhythm NORMAL ECG PREVIOUS TRACING : 01/09/2017 11.13 Compared to prior tracing no significant change DOCTOR: Anthony Long Interpretating Date/Time 02/13/2017 15:40:16
[2017-02-13] MEDS ORDERED: WARFARIN SOD 5 MG TAB PO SCH (16:00)
[2017-02-13 16:06] LABS: C. DIFF EPI 027 PRESUMPTIVE NEGATIVE (NEGATIVE)
--- NOTE | 2017-02-13 17:40 | PD.ONC.PN ---
Subjective Subjective Remarks I had blood in my urine. Denies any pain. Hematuria resolved spontaneously despite continue UFH Objective Data Date Time Temp Pulse Resp B/P (MAP) Pulse Ox O2 Delivery O2 Flow Rate FiO2 02/13/17 16:24 98.0 83 18 123/59 (80) 98 02/13/17 12:25 97.4 80 18 113/55 (74) 100 02/13/17 08:00 98.1 80 18 111/63 (79) 95 02/13/17 04:00 98.2 91 18 164/77 (106) 99 02/13/17 00:00 97.2 78 18 167/78 (107) 98 02/12/17 20:00 97.4 84 18 178/80 (112) 98 02/12/17 18:58 98.1 88 20 189/84 (119) 100 02/12/17 18:22 85 19 167/84 (111) 97 02/13/17 02/13/17 02/13/17 07:00 15:00 23:00 Intake Total 480 ml Output Total 1000 ml 100 ml Balance -1000 ml 380 ml Result Diagram: 02/13/17 1330 02/13/17 0600 Laboratory Results Laboratory Tests Test 02/12/17 22:42 02/13/17 02:49 02/13/17 06:00 02/13/17 09:00 Activated Partial Thromboplast Time 129.7 SEC 102.1 SEC 19.1 SEC White Blood Count 4.7 TH/MM3 Red Blood Count 3.28 MIL/MM3 Hemoglobin 9.4 GM/DL Hematocrit 28.3 % Mean Corpuscular Volume 86.4 FL Mean Corpuscular Hemoglobin 28.6 PG Mean Corpuscular Hemoglobin Concent 33.0 % Red Cell Distribution Width 14.5 % Platelet Count 36 TH/MM3 Mean Platelet Volume 8.0 FL Neutrophils (%) (Auto) 88.3 % Lymphocytes (%) (Auto) 4.7 % Monocytes (%) (Auto) 6.3 % Eosinophils (%) (Auto) 0.4 % Basophils (%) (Auto) 0.3 % Neutrophils # (Auto) 4.1 TH/MM3 Lymphocytes # (Auto) 0.2 TH/MM3 Monocytes # (Auto) 0.3 TH/MM3 Eosinophils # (Auto) 0.0 TH/MM3 Basophils # (Auto) 0.0 TH/MM3 CBC Comment AUTO DIFF Differential Comment AUTO DIFF CONFIRMED Platelet Estimate LOW Platelet Morphology Comment NORMAL Blood Urea Nitrogen 20 MG/DL Creatinine 1.17 MG/DL Random Glucose 79 MG/DL Calcium Level 7.8 MG/DL Sodium Level 134 MEQ/L Potassium Level 3.7 MEQ/L Chloride Level 103 MEQ/L Carbon Dioxide Level 22.5 MEQ/L Anion Gap 9 MEQ/L Estimat Glomerular Filtration Rate 45 ML/MIN Test 02/13/17 09:05 02/13/17 13:30 Stool C. difficile Toxin (PCR) POSITIVE Stl C. difficile Toxin Epiderm 027 PRESUMPTIVE NEGATIVE White Blood Count 4.2 TH/MM3 Red Blood Count 3.07 MIL/MM3 Hemoglobin 8.7 GM/DL Hematocrit 26.5 % Mean Corpuscular Volume 86.2 FL Mean Corpuscular Hemoglobin 28.3 PG Mean Corpuscular Hemoglobin Concent 32.8 % Red Cell Distribution Width 14.1 % Platelet Count 34 TH/MM3 Mean Platelet Volume 8.0 FL Culture Results Microbiology Date/Time Source Procedure Growth Status 02/13/17 05:00 Stool Stool Stool Occult Blood (TEO) - Final HEMOCCULT NEGATIVE Complete 02/12/17 12:54 Urine Clean Catch Urine Culture - Final 10-50,000 CFU/ML MIXED FLEX... Complete Administered Medications Medications (Trade) Dose Ordered Sig/Gregg Route PRN Reason Start Time Stop Time Status Last Admin Dose Admin Heparin Sodium/ Dextrose 250 ml @ 13 mls/hr TITRATE PRN IV Coagulation Management 02/12/17 16:15 02/12/17 17:06 Sodium Chloride (NS Flush) 2 ml BID IV FLUSH 02/12/17 21:00 02/13/17 09:00 Potassium Chloride/Sodium Chloride 1,000 ml @ 85 mls/hr [id number] IV 02/12/17 17:00 02/13/17 16:32 Lisinopril (Prinivil) 10 mg Q12HR PO 02/12/17 21:00 02/12/17 21:42 Pantoprazole Sodium (Protonix) 40 mg DAILY PO 02/13/17 09:00 02/13/17 09:13 Clonidine (Catapres) 0.2 mg Q6H PRN PO SBP above 160 02/12/17 19:15 02/13/17 05:53 Objective Remarks GENERAL: Well-nourished, well-developed patient. SKIN: Warm and dry. HEAD: Normocephalic. EYES: No scleral icterus. No injection or drainage. NECK: Supple, trachea midline. No JVD or lymphadenopathy. LYMPHATIC: No adenopathy. CARDIOVASCULAR: Regular rate and rhythm without murmurs. RESPIRATORY: Breath sounds equal bilaterally. No accessory muscle use. GASTROINTESTINAL: Colostomy RUQ. EXTREMITIES: No cyanosis, or edema. MUSCULOSKELETAL: Adequate muscle tone. Asymmetry R leg larger than L. Assessment/Plan Problem List: (1) DVT (deep venous thrombosis) ICD Codes: I82.409 - Acute embolism and thrombosis of unspecified deep veins of unspecified lower extremity Status: Acute Plan: Provoked DVT, pt w/ malignancy, receiving chemo XRT and more sedentary as tx makes her fatigue, recent pelvic biopsy. Extensive RLE DVT and high risk for PE, started on UFH and Coumadin. Course complicated by hematuria and C diff infection- treated. Discussed IVC filter placement if hematuria persist. Pt hematuria resolved, hopefully would be able to continue. Discussed part of her disease and treatment contribute to risk of hematuria. Fortunately it resolves spontaneously. Continue UFH for now- stopping if persistent gross hematuria. Assessment 71 y/o woman with provoked extensive RLE DVT associated w/ high risk PE, anticoagulant tx complicated by hematuria and C-diff infection. Plan 1. Cont UFH 2. Monitor for hematuria/hold if persist 3. Consider IVC filter if hematuria persist. Problem Qualifiers (1) DVT (deep venous thrombosis): Qualified Codes: I82.491 - Acute embolism and thrombosis of other specified deep vein of right lower extremity Kareen Hollingsworth MD Feb 13, 2017 17:40
[2017-02-13] MEDS: metroNIDAZOLE 500 MG TAB PO SCH (17:47)
[2017-02-13 18:55] LABS: HEMATOCRIT 26.8 % (35.0-46.0)
[2017-02-14] VITALS (13 sets, daily range): BP systolic 108–162; BP diastolic 55–74; PULSE 70–92; RESP 18–20; TEMP 97.5–98.7; O2SAT 97–100
[2017-02-14 00:42] LABS: APTT (PATIENT) 56.2 SEC (24.3-30.1)
[2017-02-14] MEDS: metroNIDAZOLE 500 MG TAB PO SCH ×3 (02:13→17:49)
[2017-02-14] MEDS: HEPARIN-D5W 25,000 U/250 ML 250 ML IV PRN (02:21)
[2017-02-14] MEDS: NS + KCL 20 MEQ INJ 1,000 ML IV SCH (05:17)
[2017-02-14 05:52] LABS: AUTOMATED NEUTROPHIL # 3.1 TH/MM3 (1.8-7.7); BASOPHIL % 0.3 % (0.0-2.0); EOSINOPHIL % 0.7 % (0.0-4.0); HEMATOCRIT 24.4 % (35.0-46.0); LYMPH % 6.7 % (9.0-44.0); LYMPHOCYTE # 0.2 TH/MM3 (1.0-4.8); MEAN CELL VOLUME 86.8 FL (80.0-100.0); MEAN CORPUSCULAR HEMOGLOBIN 28.6 PG (27.0-34.0); MEAN CORPUSCULAR HGB CONC 32.9 % (32.0-36.0); MONO % 8.2 % (0.0-8.0); NEUT % 84.1 % (16.0-70.0); PLATELET COUNT 30 TH/MM3 (150-450); RED BLOOD COUNT 2.81 MIL/MM3 (4.00-5.30); RED CELL DISTRIBUTION WIDTH 14.3 % (11.6-17.2); WHITE BLOOD COUNT 3.7 TH/MM3 (4.0-11.0)
[2017-02-14 05:56] LABS: HEMO FLAGS AUTO DIFF
[2017-02-14 06:04] LABS: INTERNATIONAL NORMALIZED RATIO 1.1 RATIO; PROTHROMBIN TIME - PATIENT 11.5 SEC (9.8-11.6)
[2017-02-14 06:43] LABS: APTT (PATIENT) 74.5 SEC (24.3-30.1)
[2017-02-14] MEDS: PANTOPRAZOLE SOD 40 MG DELAYED RELEASE TAB PO SCH (08:26)
[2017-02-14] MEDS: LISINOPRIL 10 MG TAB PO SCH ×2 (08:26→20:56)
[2017-02-14] MEDS: SODIUM CHLORIDE 0.9% FLUSH 10 ML FLUSH IV FLUSH SCH ×2 (08:27→20:58)
[2017-02-14 09:13] LABS: ACANTHOCYTES OCC (NORMAL); OVALOCYTES 1+ (NORMAL); PLATELET ESTIMATE SMEAR LOW (NORMAL); PLATELET MORPHOLOGY NORMAL (NORMAL); SCAN/DIFF AUTO DIFF CONFIRMED
[2017-02-14] MEDS ORDERED: SODIUM CHLOR 0.9% 250 ML INJ 250 ML IV ONE ×3 (10:00→22:30)
[2017-02-14] MEDS ORDERED: FUROSEMIDE 20 MG/2 ML VIAL IV PUSH ONE ×2 (11:00→21:00)
--- NOTE | 2017-02-14 11:30 | HHI.PR ---
Subjective Remarks Patient denies further hematuria hgb dropped to 8.0 Stool continues to be loose Objective Vitals Vital Signs Date Time Temp Pulse Resp B/P (MAP) Pulse Ox O2 Delivery O2 Flow Rate FiO2 02/14/17 08:35 97.5 92 18 140/64 (89) 98 02/14/17 07:19 98.5 80 18 130/67 (88) 99 02/14/17 00:00 98.3 70 18 136/64 (88) 100 02/13/17 23:00 100 02/13/17 20:00 98.1 84 20 131/64 (86) 100 02/13/17 16:24 98.0 83 18 123/59 (80) 98 02/13/17 12:25 97.4 80 18 113/55 (74) 100 02/14/17 02/14/17 02/15/17 15:00 23:00 07:00 # Voids 4 # Bowel Movements 0 Result Diagram: 02/14/17 0530 02/13/17 0600 Other Results Laboratory Tests Test 02/12/17 11:28 02/12/17 12:54 02/12/17 16:17 02/12/17 22:42 White Blood Count 5.7 TH/MM3 5.5 TH/MM3 Red Blood Count 3.87 MIL/MM3 3.41 MIL/MM3 Hemoglobin 10.8 GM/DL 9.6 GM/DL Hematocrit 33.4 % 29.3 % Mean Corpuscular Volume 86.3 FL 85.7 FL Mean Corpuscular Hemoglobin 27.9 PG 28.1 PG Mean Corpuscular Hemoglobin Concent 32.4 % 32.8 % Red Cell Distribution Width 14.3 % 14.1 % Platelet Count 47 TH/MM3 42 TH/MM3 Mean Platelet Volume 8.2 FL 7.8 FL Neutrophils (%) (Auto) 88.8 % Lymphocytes (%) (Auto) 4.1 % Monocytes (%) (Auto) 6.4 % Eosinophils (%) (Auto) 0.4 % Basophils (%) (Auto) 0.3 % Neutrophils # (Auto) 5.1 TH/MM3 Lymphocytes # (Auto) 0.2 TH/MM3 Monocytes # (Auto) 0.4 TH/MM3 Eosinophils # (Auto) 0.0 TH/MM3 Basophils # (Auto) 0.0 TH/MM3 CBC Comment AUTO DIFF Differential Comment AUTO DIFF CONFIRMED Prothrombin Time 10.7 SEC 10.8 SEC Prothromb Time International Ratio 1.1 RATIO 1.1 RATIO Activated Partial Thromboplast Time 23.1 SEC 22.3 SEC 129.7 SEC Blood Urea Nitrogen 23 MG/DL Creatinine 1.46 MG/DL Random Glucose 114 MG/DL Total Protein 7.1 GM/DL Albumin 2.7 GM/DL Calcium Level 8.7 MG/DL Magnesium Level 1.9 MG/DL Alkaline Phosphatase 145 U/L Aspartate Amino Transf (AST/SGOT) 30 U/L Alanine Aminotransferase (ALT/SGPT) 46 U/L Total Bilirubin 0.8 MG/DL Sodium Level 130 MEQ/L Potassium Level 3.6 MEQ/L Chloride Level 97 MEQ/L Carbon Dioxide Level 22.1 MEQ/L Anion Gap 11 MEQ/L Estimat Glomerular Filtration Rate 35 ML/MIN Urine Color YELLOW Urine Turbidity HAZY Urine pH 5.5 Urine Specific [place] 1.014 Urine Protein 30 mg/dL Urine Glucose (UA) NEG mg/dL Urine Ketones NEG mg/dL Urine Occult Blood MOD Urine Nitrite NEG Urine Bilirubin NEG Urine Urobilinogen LESS THAN 2.0 MG/DL Urine Leukocyte Esterase LARGE Urine RBC 16 /hpf Urine WBC 56 /hpf Urine WBC Clumps RARE Urine Squamous Epithelial Cells <1 /hpf Urine Transitional Epithelial Cells <1 /hpf Urine Bacteria RARE /hpf Urine Hyaline Casts 1 /lpf Microscopic Urinalysis Comment CULTURE INDICATED Test 02/13/17 02:49 02/13/17 06:00 02/13/17 09:00 02/13/17 09:05 Activated Partial Thromboplast Time 102.1 SEC 19.1 SEC White Blood Count 4.7 TH/MM3 Red Blood Count 3.28 MIL/MM3 Hemoglobin 9.4 GM/DL Hematocrit 28.3 % Mean Corpuscular Volume 86.4 FL Mean Corpuscular Hemoglobin 28.6 PG Mean Corpuscular Hemoglobin Concent 33.0 % Red Cell Distribution Width 14.5 % Platelet Count 36 TH/MM3 Mean Platelet Volume 8.0 FL Neutrophils (%) (Auto) 88.3 % Lymphocytes (%) (Auto) 4.7 % Monocytes (%) (Auto) 6.3 % Eosinophils (%) (Auto) 0.4 % Basophils (%) (Auto) 0.3 % Neutrophils # (Auto) 4.1 TH/MM3 Lymphocytes # (Auto) 0.2 TH/MM3 Monocytes # (Auto) 0.3 TH/MM3 Eosinophils # (Auto) 0.0 TH/MM3 Basophils # (Auto) 0.0 TH/MM3 CBC Comment AUTO DIFF Differential Comment AUTO DIFF CONFIRMED Platelet Estimate LOW Platelet Morphology Comment NORMAL Blood Urea Nitrogen 20 MG/DL Creatinine 1.17 MG/DL Random Glucose 79 MG/DL Calcium Level 7.8 MG/DL Sodium Level 134 MEQ/L Potassium Level 3.7 MEQ/L Chloride Level 103 MEQ/L Carbon Dioxide Level 22.5 MEQ/L Anion Gap 9 MEQ/L Estimat Glomerular Filtration Rate 45 ML/MIN Stool C. difficile Toxin (PCR) POSITIVE Stl C. difficile Toxin Epiderm 027 PRESUMPTIVE NEGATIVE Test 02/13/17 13:30 02/13/17 18:15 02/14/17 00:09 02/14/17 05:30 White Blood Count 4.2 TH/MM3 3.7 TH/MM3 Red Blood Count 3.07 MIL/MM3 2.81 MIL/MM3 Hemoglobin 8.7 GM/DL 9.1 GM/DL 8.0 GM/DL Hematocrit 26.5 % 26.8 % 24.4 % Mean Corpuscular Volume 86.2 FL 86.8 FL Mean Corpuscular Hemoglobin 28.3 PG 28.6 PG Mean Corpuscular Hemoglobin Concent 32.8 % 32.9 % Red Cell Distribution Width 14.1 % 14.3 % Platelet Count 34 TH/MM3 30 TH/MM3 Mean Platelet Volume 8.0 FL 7.7 FL Activated Partial Thromboplast Time 49.0 SEC 56.2 SEC 74.5 SEC Neutrophils (%) (Auto) 84.1 % Lymphocytes (%) (Auto) 6.7 % Monocytes (%) (Auto) 8.2 % Eosinophils (%) (Auto) 0.7 % Basophils (%) (Auto) 0.3 % Neutrophils # (Auto) 3.1 TH/MM3 Lymphocytes # (Auto) 0.2 TH/MM3 Monocytes # (Auto) 0.3 TH/MM3 Eosinophils # (Auto) 0.0 TH/MM3 Basophils # (Auto) 0.0 TH/MM3 CBC Comment AUTO DIFF Differential Comment AUTO DIFF CONFIRMED Platelet Estimate LOW Platelet Morphology Comment NORMAL Ovalocytes 1+ Acanthocytes OCC Prothrombin Time 11.5 SEC Prothromb Time International Ratio 1.1 RATIO Imaging Last Impressions Chest X-Ray 02/12/17 1116 Signed Impressions: Service Date/Time: Sunday, February 12, 2017 11:33 - CONCLUSION: No acute disease. Sid Chaves Jr., MD Lung Scan-VQ Nuclear Medicine 02/12/17 0000 Signed Impressions: Service Date/Time: Sunday, February 12, 2017 14:45 - CONCLUSION: Intermediate to high probability for pulmonary embolism in this patient with previous thrombosis. Aj Jarrett MD FACR Objective Remarks GENERAL: This is a well-nourished, well-developed patient, in no apparent distress. CARDIOVASCULAR: Regular rate and rhythm without murmurs, gallops, or rubs. RESPIRATORY: Clear to auscultation. Breath sounds equal bilaterally. No wheezes , rales, or rhonchi. GASTROINTESTINAL: Abdomen soft, non-tender, nondistended. MUSCULOSKELETAL: Extremities without clubbing, cyanosis, or edema. No joint tenderness, effusion, or edema noted. No calf tenderness. Negative Homans sign bilaterally. NEUROLOGICAL: Awake and alert. No focal deficits noted. Motor and sensory grossly within normal limits. Five out of 5 muscle strength in all muscle groups. Normal speech. A/P Problem List: (1) Pulmonary embolism ICD Codes: I26.99 - Other pulmonary embolism without acute cor pulmonale Status: Acute Plan: - Pt is a 71 y/o female with anxiety, hyperlipidemia and CKD, stage 3 who presented to the ED at [facility] [place] with complaints of Abd pain and constipation - Pt underwent vaginal exploration under anesthesia, cystoscopy, sigmoidoscopy, and exploratory laparotomy with loop colostomy placement on 01/10/[address] and Dr. Rowe. She was found to have disease at the top of the vagina which is invading bladder and obstructing the colon. 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 The tumor is at least 8 mm in diameter. The depth of invasion cannot be determined in this biopsy. 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 The tumor is at least 5 mm in diameter and 4 mm in depth - Cytology pathology report final diagnosis urine: Atypical squamous cells with dysplastic features Patient presents to the ER today VQ scan obtained and revealed: high probability for PE, patient started on heparin drip per ER - Plt 47,000 (02/12) -> 37,000 (02/13) -> 30,000 (02/14) - consult placed to hematology/oncology for further anticoagulation recommendations, appreciate input. - per blood with clots passed during urination patient asymptomatic, VSS, stat H&H pending - discussed with Dr. Hollingsworth as well as DIETETIC AIDE oncology CHARITY Griffin - patient unable to tolerate anticoagulation due to hematuria and hgb drop, discussed case with hematology Dr. Boswell and IR Dr. Murguia. - Plan for placement of removable IVF today with IR, plt transfusion during procedure ordered...Discussed with patient she reports the hematuria has stopped and she does not want filter placed at this time. would like to continue anticoagulation. Discussed with aMyi Givens, recommending initiate Coumadin 02/15 if no bleeding - 2 units PRBC ordered - Labs in AM Discharge planning - Patient is not yet stable for DC - Patient does not want IVF filter - per hematology recommendations: Coumadin with heparin drip until INR therapeutic. Patient will likely be in the hospital for 3-5 days (2) DVT (deep venous thrombosis) ICD Codes: I82.409 - Acute embolism and thrombosis of unspecified deep veins of unspecified lower extremity Status: Acute Plan: see above (3) Squamous cell carcinoma ICD Codes: C44.92 - Squamous cell carcinoma of skin, unspecified Plan: follows with Dr. Rowe recently received chemo therapy supportive care and IV fluids (4) Urinary tract infection ICD Codes: N39.0 - Urinary tract infection, site not specified Status: Acute Plan: Urine culture results showed 10-50,000 mixed mayra Asymptomatic no further abx (5) Diarrhea ICD Codes: R19.7 - Diarrhea, unspecified Plan: possibly related to chemo/radiation C Diff ordered and pending C diff positive Continue Flagyl 500mg Q8H Assessment and Plan Patient examined. Assessment and plan formulated with Ruth King PA-C. I agree with the above. Pt with squamous cell cancer, s/p complicated surgical resection and colostomy Pt with C. Dif Colitis. pt admitted with findings of DVT and PE by VQ scan Pt started on heparin/coumadin. Pt developed hematuria with drop in her Hg count. Pt transfused 2 units PRBCs Case d/w Dr. Hollingsworth. IVC filter felt to be best option. I arranged for IVC filter with platelet transfusion. Pt declined IVC filter. Procedure was cancelled. Pt continued on heparin. Pt developed recurrent hematuria. Case d/w covering Oncologist, Dr. Moss. Heparin stopped. Pt ordered 2 units platelet transfusion STAT Following platelet transfusion, pt to receive 1/2 dose lovenox., one time Not perfect option, but pt needs anticoagulation/ protection from extending PE Will repeat CBC in AM In AM Medical team/Oncology will again discuss case with pt and the importance of IVC filter in this scenario. Above plan and urgency of transfusion d/w pt's nurse Problem Qualifiers (1) Pulmonary embolism: Qualified Codes: I26.99 - Other pulmonary embolism without acute cor pulmonale (2) DVT (deep venous thrombosis): Qualified Codes: I82.491 - Acute embolism and thrombosis of other specified deep vein of right lower extremity (3) Urinary tract infection: Qualified Codes: N30.00 - Acute cystitis without hematuria Ruth King Feb 14, 2017 11:30 Javed Olguin DO Feb 14, 2017 22:36
--- NOTE | 2017-02-14 11:37 | PD.ONC.PN ---
Subjective Subjective Remarks Afebrile overnight. Patient resting in room with at bedside. Denies further hematuria or any bleeding. Denies pain. Objective Data Date Time Temp Pulse Resp B/P (MAP) Pulse Ox O2 Delivery O2 Flow Rate FiO2 02/14/17 08:35 97.5 92 18 140/64 (89) 98 02/14/17 07:19 98.5 80 18 130/67 (88) 99 02/14/17 00:00 98.3 70 18 136/64 (88) 100 02/13/17 23:00 100 02/13/17 20:00 98.1 84 20 131/64 (86) 100 02/13/17 16:24 98.0 83 18 123/59 (80) 98 02/13/17 12:25 97.4 80 18 113/55 (74) 100 Result Diagram: 02/14/17 0530 02/13/17 0600 Laboratory Results Laboratory Tests Test 02/13/17 13:30 02/13/17 18:15 02/14/17 00:09 02/14/17 05:30 White Blood Count 4.2 TH/MM3 3.7 TH/MM3 Red Blood Count 3.07 MIL/MM3 2.81 MIL/MM3 Hemoglobin 8.7 GM/DL 9.1 GM/DL 8.0 GM/DL Hematocrit 26.5 % 26.8 % 24.4 % Mean Corpuscular Volume 86.2 FL 86.8 FL Mean Corpuscular Hemoglobin 28.3 PG 28.6 PG Mean Corpuscular Hemoglobin Concent 32.8 % 32.9 % Red Cell Distribution Width 14.1 % 14.3 % Platelet Count 34 TH/MM3 30 TH/MM3 Mean Platelet Volume 8.0 FL 7.7 FL Activated Partial Thromboplast Time 49.0 SEC 56.2 SEC 74.5 SEC Neutrophils (%) (Auto) 84.1 % Lymphocytes (%) (Auto) 6.7 % Monocytes (%) (Auto) 8.2 % Eosinophils (%) (Auto) 0.7 % Basophils (%) (Auto) 0.3 % Neutrophils # (Auto) 3.1 TH/MM3 Lymphocytes # (Auto) 0.2 TH/MM3 Monocytes # (Auto) 0.3 TH/MM3 Eosinophils # (Auto) 0.0 TH/MM3 Basophils # (Auto) 0.0 TH/MM3 CBC Comment AUTO DIFF Differential Comment AUTO DIFF CONFIRMED Platelet Estimate LOW Platelet Morphology Comment NORMAL Ovalocytes 1+ Acanthocytes OCC Prothrombin Time 11.5 SEC Prothromb Time International Ratio 1.1 RATIO Culture Results Microbiology Date/Time Source Procedure Growth Status 02/13/17 05:00 Stool Stool Stool Occult Blood (TEO) - Final HEMOCCULT NEGATIVE Complete 02/12/17 12:54 Urine Clean Catch Urine Culture - Final 10-50,000 CFU/ML MIXED FLEX... Complete Administered Medications Medications (Trade) Dose Ordered Sig/Gregg Route PRN Reason Start Time Stop Time Status Last Admin Dose Admin Heparin Sodium/ Dextrose 250 ml @ 13 mls/hr TITRATE PRN IV Coagulation Management 02/12/17 16:15 02/14/17 02:21 Sodium Chloride (NS Flush) 2 ml BID IV FLUSH 02/12/17 21:00 02/13/17 21:56 Potassium Chloride/Sodium Chloride 1,000 ml @ 85 mls/hr [id number] IV 02/12/17 17:00 02/14/17 05:17 Lisinopril (Prinivil) 10 mg Q12HR PO 02/12/17 21:00 02/14/17 08:26 Pantoprazole Sodium (Protonix) 40 mg DAILY PO 02/13/17 09:00 02/14/17 08:26 Clonidine (Catapres) 0.2 mg Q6H PRN PO SBP above 160 02/12/17 19:15 02/13/17 05:53 Metronidazole (Flagyl) 500 mg Q8H PO 02/13/17 18:00 02/14/17 10:29 Objective Remarks GENERAL: Elderly female sitting up in chair next to bed in [facility]. SKIN: Warm and dry. HEAD: Normocephalic. EYES: No injection or drainage. NECK: Supple, trachea midline. CARDIOVASCULAR: Regular rate and rhythm RESPIRATORY: Breath sounds equal bilaterally. No accessory muscle use. GASTROINTESTINAL: Abdomen soft, non-tender, nondistended. EXTREMITIES: No cyanosis NEUROLOGICAL: awake and alert, normal speech Assessment/Plan Problem List: (1) DVT (deep venous thrombosis) ICD Codes: I82.409 - Acute embolism and thrombosis of unspecified deep veins of unspecified lower extremity Status: Acute Plan: Provoked DVT, pt w/ malignancy, receiving chemo XRT and more sedentary as tx makes her fatigue, recent pelvic biopsy. Extensive RLE DVT and high risk for PE, started on UFH and Coumadin. Course complicated by hematuria and C diff infection- treated. Discussed IVC filter placement if hematuria persist. Pt hematuria resolved, hopefully would be able to continue. Discussed part of her disease and treatment contribute to risk of hematuria. Fortunately it resolves spontaneously. Continue UFH for now- stopping if persistent gross hematuria. 02/14: no further hematuria. continue anticoagulation Assessment 71 y/o woman with provoked extensive RLE DVT associated w/ high risk PE, anticoagulant tx complicated by hematuria and C-diff infection. Plan 1. Cont UFH 2. monitor CBC 3. monitor hematuria. Attending Statement The exam, history, and the medical decision-making described in the above note were completed with the assistance of the mid-level provider. I reviewed and agree with the findings presented. I attest that I had a [id number] encounter with the patient on the same day, and personally performed and documented my assessment and findings in the medical record. Pt seen and examined, state she has not had bleeding for days, pointed out she bled yesterday. Discussed plan to defer IVC filter so long as we can continue anticoagulation. She seems to be tolerating UFH well. Discussed w/ Dr. Olguin. Continue to follow. Problem Qualifiers (1) DVT (deep venous thrombosis): Qualified Codes: I82.491 - Acute embolism and thrombosis of other specified deep vein of right lower extremity Chelsey Givens Feb 14, 2017 11:37 Kareen Hollingsworth MD Feb 14, 2017 19:04
[2017-02-14] MEDS ORDERED: HEPARIN-D5W 25,000 U/250 ML 250 ML IV PRN (12:30)
[2017-02-14] MEDS ORDERED: WARFARIN SOD 5 MG TAB PO SCH (16:00)
[2017-02-14] MEDS ORDERED: ENOXAPARIN SODIUM 40 MG/0.4 ML SYRINGE SQ SCH (22:30)
[2017-02-15] VITALS (15 sets, daily range): BP systolic 112–180; BP diastolic 55–78; PULSE 63–81; RESP 16–20; TEMP 97.5–98.6; O2SAT 97–100
[2017-02-15] MEDS: cloNIDine HCL 0.2 MG TAB PO PRN (02:05)
[2017-02-15] MEDS: metroNIDAZOLE 500 MG TAB PO SCH ×3 (02:05→17:18)
[2017-02-15] MEDS: NS + KCL 20 MEQ INJ 1,000 ML IV SCH ×2 (03:50→15:36)
[2017-02-15] MEDS ORDERED: ENOXAPARIN SODIUM 40 MG/0.4 ML SYRINGE SQ SCH (04:00)
[2017-02-15 07:33] LABS: HEMATOCRIT 27.3 % (35.0-46.0); MEAN CORPUSCULAR HEMOGLOBIN 29.3 PG (27.0-34.0); MEAN CORPUSCULAR HGB CONC 34.1 % (32.0-36.0); PLATELET COUNT 153 TH/MM3 (150-450); RED BLOOD COUNT 3.17 MIL/MM3 (4.00-5.30); RED CELL DISTRIBUTION WIDTH 14.4 % (11.6-17.2); REVIEW FLAG FINAL
[2017-02-15 07:44] LABS: APTT (PATIENT) 31.5 SEC (24.3-30.1); INTERNATIONAL NORMALIZED RATIO 1.2 RATIO; PROTHROMBIN TIME - PATIENT 11.8 SEC (9.8-11.6)
[2017-02-15] MEDS: LISINOPRIL 10 MG TAB PO SCH ×2 (08:30→20:04)
[2017-02-15] MEDS: PANTOPRAZOLE SOD 40 MG DELAYED RELEASE TAB PO SCH (08:30)
[2017-02-15] MEDS: SODIUM CHLORIDE 0.9% FLUSH 10 ML FLUSH IV FLUSH SCH ×2 (08:30→20:04)
--- NOTE | 2017-02-15 10:23 | HHI.PR ---
Subjective Remarks Patient had hematuria through the night causing hep drip to be stopped Patient anxious regarding IVF filter placement asking multiple questions Objective Vitals Vital Signs Date Time Temp Pulse Resp B/P (MAP) Pulse Ox O2 Delivery O2 Flow Rate FiO2 02/15/17 09:23 66 02/15/17 08:57 97.8 64 17 133/65 (87) 99 02/15/17 06:35 98.0 63 16 126/65 98 02/15/17 06:20 98.1 63 16 131/65 97 02/15/17 03:44 64 02/15/17 03:35 98.4 71 18 112/55 (74) 97 02/15/17 03:32 98.4 71 16 112/55 97 02/15/17 02:31 97.7 73 17 156/73 99 02/15/17 02:16 97.7 74 16 177/78 99 02/15/17 01:40 98.6 73 16 175/76 99 02/15/17 00:43 98.0 72 20 165/77 (106) 100 02/15/17 00:40 98.2 70 18 180/76 99 02/14/17 23:51 98.4 71 18 158/74 100 02/14/17 23:47 71 02/14/17 20:47 98.7 88 20 162/73 (102) 97 02/14/17 19:57 97.8 85 18 147/67 99 02/14/17 19:47 91 02/14/17 16:49 97.5 87 20 153/70 99 02/14/17 16:34 97.6 88 20 141/65 99 02/14/17 16:17 97.6 89 18 153/68 (96) 100 02/14/17 12:25 82 02/14/17 12:00 98.0 91 18 108/55 (72) 100 02/15/17 02/15/17 02/16/17 15:00 23:00 07:00 Intake Total 400 ml Balance 400 ml Packed Cells 400 ml Result Diagram: 02/15/17 0611 02/13/17 06 Other Results Laboratory Tests Test 02/12/17 11:28 02/12/17 12:54 02/12/17 16:17 02/12/17 22:42 White Blood Count 5.7 TH/MM3 5.5 TH/MM3 Red Blood Count 3.87 MIL/MM3 3.41 MIL/MM3 Hemoglobin 10.8 GM/DL 9.6 GM/DL Hematocrit 33.4 % 29.3 % Mean Corpuscular Volume 86.3 FL 85.7 FL Mean Corpuscular Hemoglobin 27.9 PG 28.1 PG Mean Corpuscular Hemoglobin Concent 32.4 % 32.8 % Red Cell Distribution Width 14.3 % 14.1 % Platelet Count 47 TH/MM3 42 TH/MM3 Mean Platelet Volume 8.2 FL 7.8 FL Neutrophils (%) (Auto) 88.8 % Lymphocytes (%) (Auto) 4.1 % Monocytes (%) (Auto) 6.4 % Eosinophils (%) (Auto) 0.4 % Basophils (%) (Auto) 0.3 % Neutrophils # (Auto) 5.1 TH/MM3 Lymphocytes # (Auto) 0.2 TH/MM3 Monocytes # (Auto) 0.4 TH/MM3 Eosinophils # (Auto) 0.0 TH/MM3 Basophils # (Auto) 0.0 TH/MM3 CBC Comment AUTO DIFF Differential Comment AUTO DIFF CONFIRMED Prothrombin Time 10.7 SEC 10.8 SEC Prothromb Time International Ratio 1.1 RATIO 1.1 RATIO Activated Partial Thromboplast Time 23.1 SEC 22.3 SEC 129.7 SEC Blood Urea Nitrogen 23 MG/DL Creatinine 1.46 MG/DL Random Glucose 114 MG/DL Total Protein 7.1 GM/DL Albumin 2.7 GM/DL Calcium Level 8.7 MG/DL Magnesium Level 1.9 MG/DL Alkaline Phosphatase 145 U/L Aspartate Amino Transf (AST/SGOT) 30 U/L Alanine Aminotransferase (ALT/SGPT) 46 U/L Total Bilirubin 0.8 MG/DL Sodium Level 130 MEQ/L Potassium Level 3.6 MEQ/L Chloride Level 97 MEQ/L Carbon Dioxide Level 22.1 MEQ/L Anion Gap 11 MEQ/L Estimat Glomerular Filtration Rate 35 ML/MIN Urine Color YELLOW Urine Turbidity HAZY Urine pH 5.5 Urine Specific [place] 1.014 Urine Protein 30 mg/dL Urine Glucose (UA) NEG mg/dL Urine Ketones NEG mg/dL Urine Occult Blood MOD Urine Nitrite NEG Urine Bilirubin NEG Urine Urobilinogen LESS THAN 2.0 MG/DL Urine Leukocyte Esterase LARGE Urine RBC 16 /hpf Urine WBC 56 /hpf Urine WBC Clumps RARE Urine Squamous Epithelial Cells <1 /hpf Urine Transitional Epithelial Cells <1 /hpf Urine Bacteria RARE /hpf Urine Hyaline Casts 1 /lpf Microscopic Urinalysis Comment CULTURE INDICATED Test 02/13/17 02:49 02/13/17 06:00 02/13/17 09:00 02/13/17 09:05 Activated Partial Thromboplast Time 102.1 SEC 19.1 SEC White Blood Count 4.7 TH/MM3 Red Blood Count 3.28 MIL/MM3 Hemoglobin 9.4 GM/DL Hematocrit 28.3 % Mean Corpuscular Volume 86.4 FL Mean Corpuscular Hemoglobin 28.6 PG Mean Corpuscular Hemoglobin Concent 33.0 % Red Cell Distribution Width 14.5 % Platelet Count 36 TH/MM3 Mean Platelet Volume 8.0 FL Neutrophils (%) (Auto) 88.3 % Lymphocytes (%) (Auto) 4.7 % Monocytes (%) (Auto) 6.3 % Eosinophils (%) (Auto) 0.4 % Basophils (%) (Auto) 0.3 % Neutrophils # (Auto) 4.1 TH/MM3 Lymphocytes # (Auto) 0.2 TH/MM3 Monocytes # (Auto) 0.3 TH/MM3 Eosinophils # (Auto) 0.0 TH/MM3 Basophils # (Auto) 0.0 TH/MM3 CBC Comment AUTO DIFF Differential Comment AUTO DIFF CONFIRMED Platelet Estimate LOW Platelet Morphology Comment NORMAL Blood Urea Nitrogen 20 MG/DL Creatinine 1.17 MG/DL Random Glucose 79 MG/DL Calcium Level 7.8 MG/DL Sodium Level 134 MEQ/L Potassium Level 3.7 MEQ/L Chloride Level 103 MEQ/L Carbon Dioxide Level 22.5 MEQ/L Anion Gap 9 MEQ/L Estimat Glomerular Filtration Rate 45 ML/MIN Stool C. difficile Toxin (PCR) POSITIVE Stl C. difficile Toxin Epiderm 027 PRESUMPTIVE NEGATIVE Test 02/13/17 13:30 02/13/17 18:15 02/14/17 00:09 02/14/17 05:30 White Blood Count 4.2 TH/MM3 3.7 TH/MM3 Red Blood Count 3.07 MIL/MM3 2.81 MIL/MM3 Hemoglobin 8.7 GM/DL 9.1 GM/DL 8.0 GM/DL Hematocrit 26.5 % 26.8 % 24.4 % Mean Corpuscular Volume 86.2 FL 86.8 FL Mean Corpuscular Hemoglobin 28.3 PG 28.6 PG Mean Corpuscular Hemoglobin Concent 32.8 % 32.9 % Red Cell Distribution Width 14.1 % 14.3 % Platelet Count 34 TH/MM3 30 TH/MM3 Mean Platelet Volume 8.0 FL 7.7 FL Activated Partial Thromboplast Time 49.0 SEC 56.2 SEC 74.5 SEC Neutrophils (%) (Auto) 84.1 % Lymphocytes (%) (Auto) 6.7 % Monocytes (%) (Auto) 8.2 % Eosinophils (%) (Auto) 0.7 % Basophils (%) (Auto) 0.3 % Neutrophils # (Auto) 3.1 TH/MM3 Lymphocytes # (Auto) 0.2 TH/MM3 Monocytes # (Auto) 0.3 TH/MM3 Eosinophils # (Auto) 0.0 TH/MM3 Basophils # (Auto) 0.0 TH/MM3 CBC Comment AUTO DIFF Differential Comment AUTO DIFF CONFIRMED Platelet Estimate LOW Platelet Morphology Comment NORMAL Ovalocytes 1+ Acanthocytes OCC Prothrombin Time 11.5 SEC Prothromb Time International Ratio 1.1 RATIO Test 02/15/17 06:11 White Blood Count 4.0 TH/MM3 Red Blood Count 3.17 MIL/MM3 Hemoglobin 9.3 GM/DL Hematocrit 27.3 % Mean Corpuscular Volume 86.0 FL Mean Corpuscular Hemoglobin 29.3 PG Mean Corpuscular Hemoglobin Concent 34.1 % Red Cell Distribution Width 14.4 % Platelet Count 153 TH/MM3 Mean Platelet Volume 8.6 FL Prothrombin Time 11.8 SEC Prothromb Time International Ratio 1.2 RATIO Activated Partial Thromboplast Time 31.5 SEC Imaging Last Impressions Chest X-Ray 02/12/17 1116 Signed Impressions: Service Date/Time: Sunday, February 12, 2017 11:33 - CONCLUSION: No acute disease. Sid Chaves Jr., MD Lung Scan-[facility] Nuclear Medicine 02/12/17 0000 Signed Impressions: Service Date/Time: Sunday, February 12, 2017 14:45 - CONCLUSION: Intermediate to high probability for pulmonary embolism in this patient with previous thrombosis. Aj Jarrett MD FACR Objective Remarks GENERAL: This is a well-nourished, well-developed patient, anxious CARDIOVASCULAR: Regular rate RESPIRATORY: Clear to auscultation. Breath sounds equal bilaterally. No wheezes , rales, or rhonchi. GASTROINTESTINAL: Abdomen soft, non-tender, nondistended. MUSCULOSKELETAL: Extremities without clubbing, cyanosis. No joint tenderness, effusion, or edema noted. RLE edema >L NEUROLOGICAL: Awake and alert. No focal deficits noted. Motor and sensory grossly within normal limits. Five out of 5 muscle strength in all muscle groups. Normal speech. A/P Problem List: (1) Pulmonary embolism ICD Codes: I26.99 - Other pulmonary embolism without acute cor pulmonale Status: Acute Plan: - Pt is a 71 y/o female with anxiety, hyperlipidemia and CKD, stage 3 who presented to the ED at [facility] with complaints of Abd pain and constipation - Pt underwent vaginal exploration under anesthesia, cystoscopy, sigmoidoscopy, and exploratory laparotomy with loop colostomy placement on 01/10/[address] Mansfield and Dr. Rowe. She was found to have disease at the top of the vagina which is invading bladder and obstructing the colon. 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 The tumor is at least 8 mm in diameter. The depth of invasion cannot be determined in this biopsy. 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 The tumor is at least 5 mm in diameter and 4 mm in depth - Cytology pathology report final diagnosis urine: Atypical squamous cells with dysplastic features - Outpatient bilateral lower extremity ultrasound revealed superficial and deep veins of both lower extremities show the right lower extremity to have extensive deep vein thrombosis involving the patient's right superficial femoral artery, right popliteal vein and right posterior tibial vein. There appears to be possible clot in the superficial area of the right popliteal fossa versus hemorrhagic bakers cyst no blood flow noted Patient presents to the ER today VQ scan obtained and revealed: high probability for PE, patient started on heparin drip per ER - Plt 47,000 (02/12) -> 37,000 (02/13) -> 30,000 (02/14) plt transfusion -> 153, 000 (02/15) - consult placed to hematology/oncology for further anticoagulation recommendations, appreciate input. - discussed with Dr. Hollingsworth as well as [facility] HCAR[facility] Moya - patient unable to tolerate anticoagulation due to hematuria and hgb drop, discussed case with hematology Dr. oBswell and IR - 2 units PRBCs and plt given 02/14 - 02/14 Discussed with patient she reports the hematuria has stopped and she does not want filter placed at this time. would like to continue anticoagulation. Discussed with Mayi Givens, recommending initiate Coumadin if no bleeding - patient again had hematuria through the night causing heparin drip to be stopped - Plan for placement of removable IVF today with IR, discussed in depth with patient and all questuins answered to best of my ablity patient agreeable to filter placement - case discussed by Dr. Olguin with IR - 2 units PRBC ordered Discharge planning - Plan for patient to have IVF filter - unable to tolerate anticoagulation due to hematuria - plan to DC tomorrow. PT recommending rehab short term at [place], patient refusing rehab wants to go home. agreeable to [facility] (2) DVT (deep venous thrombosis) ICD Codes: I82.409 - Acute embolism and thrombosis of unspecified deep veins of unspecified lower extremity Status: Acute Plan: see above (3) Squamous cell carcinoma ICD Codes: C44.92 - Squamous cell carcinoma of skin, unspecified Plan: follows with Dr. Rowe recently received chemo therapy supportive care and IV fluids (4) Urinary tract infection ICD Codes: N39.0 - Urinary tract infection, site not specified Status: Acute Plan: Urine culture results showed 10-50,000 mixed mayra Asymptomatic no further abx (5) Diarrhea ICD Codes: R19.7 - Diarrhea, unspecified Plan: possibly related to chemo/radiation C Diff ordered and pending C diff positive Continue Flagyl 500mg Q8H Assessment and Plan Patient examined. Assessment and plan formulated with Ruth King PA-C. I agree with the above. Problem Qualifiers (1) Pulmonary embolism: Qualified Codes: I26.99 - Other pulmonary embolism without acute cor pulmonale (2) DVT (deep venous thrombosis): Qualified Codes: I82.491 - Acute embolism and thrombosis of other specified deep vein of right lower extremity (3) Urinary tract infection: Qualified Codes: N30.00 - Acute cystitis without hematuria Ruth King Feb 15, 2017 10:23 Javed Olguin DO Feb 18, 2017 23:46
--- NOTE | 2017-02-15 10:29 | HHI.FF ---
Face to Face Verification Diagnosis: (1) Squamous cell carcinoma (2) DVT (deep venous thrombosis) (3) Diarrhea Home Health Nursing Order: Medical education Signs/symptoms of disease process Medication education-adverse effect Nursing assessment with vital signs I have seen patient Divina Escobar on 02/15/17. My clinical findings support the need for the requested home health care services because: Ltd mobility - disease progression Deconditioned w/ increased weakness I certify that my clinical findings support that this patient is homebound because: Post-op weakness Unsteady gait/balance Ruth King Feb 15, 2017 10:29
[2017-02-15] MEDS ORDERED: METR-1 PO (10:31)
--- NOTE | 2017-02-15 10:33 | HHI.DCPOC ---
Discharge Care Plan Diagnosis: (1) Anxiety (2) Squamous cell carcinoma (3) DVT (deep venous thrombosis) (4) Pulmonary embolism (5) Diarrhea Goals to Promote Your Health * To prevent worsening of your condition and complications * To maintain your health at the optimal level Directions to Meet Your Goals Take your medications as prescribed Follow your dietary instruction Follow activity as directed Keep your appointments as scheduled Take your immunizations and boosters as scheduled If your symptoms worsen call your PCP, if no PCP go to Urgent Care Center or Emergency Room Smoking is Dangerous to Your Health. Avoid second hand smoke Call the 24-hour hour crisis hotline for domestic abuse at Ruth King Feb 15, 2017 10:33
--- NOTE | 2017-02-15 10:35 | HHI.DS ---
Discharge Summary Admission Date Feb 12, 2017 at 16:34 Discharge Date: Feb 16, 2017 Admitting Diagnosis (1) Pulmonary embolism Diagnosis: Principal ICD Codes: I26.99 - Other pulmonary embolism without acute cor pulmonale Status: Acute (2) DVT (deep venous thrombosis) Diagnosis: Principal ICD Codes: I82.409 - Acute embolism and thrombosis of unspecified deep veins of unspecified lower extremity Status: Acute (3) Squamous cell carcinoma Diagnosis: Secondary ICD Codes: C44.92 - Squamous cell carcinoma of skin, unspecified (4) Urinary tract infection Diagnosis: Principal ICD Codes: N39.0 - Urinary tract infection, site not specified Status: Acute (5) Diarrhea Diagnosis: Principal ICD Codes: R19.7 - Diarrhea, unspecified Consultants Dr. Hollingsworth hematology IR Procedures IVC filter placed 02/15 with IR Brief History Pt is a 71 y/o female with anxiety, hyperlipidemia and CKD, stage 3 who presented to the ED at [facility] with complaints of Abd pain and constipation. Pt underwent vaginal exploration under anesthesia, cystoscopy, sigmoidoscopy, and exploratory laparotomy with loop colostomy placement on 01/10/[address]field and Dr. Rowe. She was found to have disease at the top of the vagina which is invading bladder and obstructing the colon. Intra-operative frozen sections were consistent with squamous cell carcinoma. 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 The tumor is at least 8 mm in diameter. The depth of invasion cannot be determined in this biopsy. 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 The tumor is at least 5 mm in diameter and 4 mm in depth. Cytology pathology report final diagnosis urine: Atypical squamous cells with dysplastic features. Patient following outpatient with Dr. Rowe currently undergoing chemotherapy Patient presents to the ER today VQ scan obtained and revealed: high probability for PE, patient started on heparin drip per ER. Plt 47,000. CBC/BMP: 02/15/17 0611 02/13/17 0600 Significant Findings Laboratory Tests Test 02/12/17 11:28 02/12/17 12:54 02/12/17 16:17 02/12/17 22:42 Red Blood Count 3.87 MIL/MM3 (4.00-5.30) 3.41 MIL/MM3 (4.00-5.30) Hemoglobin 10.8 GM/DL (11.6-15.3) 9.6 GM/DL (11.6-15.3) Hematocrit 33.4 % (35.0-46.0) 29.3 % (35.0-46.0) Platelet Count 47 TH/MM3 (150-450) 42 TH/MM3 (150-450) Neutrophils (%) (Auto) 88.8 % (16.0-70.0) Lymphocytes (%) (Auto) 4.1 % (9.0-44.0) Lymphocytes # (Auto) 0.2 TH/MM3 (1.0-4.8) Activated Partial Thromboplast Time 23.1 SEC (24.3-30.1) 22.3 SEC (24.3-30.1) 129.7 SEC (24.3-30.1) Blood Urea Nitrogen 23 MG/DL (7-18) Creatinine 1.46 MG/DL (0.50-1.00) Random Glucose 114 MG/DL (74-106) Albumin 2.7 GM/DL (3.4-5.0) Alkaline Phosphatase 145 U/L (45-117) Sodium Level 130 MEQ/L (136-145) Chloride Level 97 MEQ/L (98-107) Estimat Glomerular Filtration Rate 35 ML/MIN (>89) Urine Turbidity HAZY (CLEAR) Urine Protein 30 mg/dL (NEG-TRACE) Urine Occult Blood MOD (NEG) Urine Leukocyte Esterase LARGE (NEG) Urine RBC 16 /hpf (0-3) Urine WBC 56 /hpf (0-5) Urine WBC Clumps RARE (NONE) Urine Bacteria RARE /hpf (NONE) Test 02/13/17 02:49 02/13/17 06:00 02/13/17 09:00 02/13/17 09:05 Activated Partial Thromboplast Time 102.1 SEC (24.3-30.1) 19.1 SEC (24.3-30.1) Red Blood Count 3.28 MIL/MM3 (4.00-5.30) Hemoglobin 9.4 GM/DL (11.6-15.3) Hematocrit 28.3 % (35.0-46.0) Platelet Count 36 TH/MM3 (150-450) Neutrophils (%) (Auto) 88.3 % (16.0-70.0) Lymphocytes (%) (Auto) 4.7 % (9.0-44.0) Lymphocytes # (Auto) 0.2 TH/MM3 (1.0-4.8) Platelet Estimate LOW (NORMAL) Blood Urea Nitrogen 20 MG/DL (7-18) Creatinine 1.17 MG/DL (0.50-1.00) Calcium Level 7.8 MG/DL (8.5-10.1) Sodium Level 134 MEQ/L (136-145) Estimat Glomerular Filtration Rate 45 ML/MIN (>89) Stool C. difficile Toxin (PCR) POSITIVE (NEGATIVE) Test 02/13/17 13:30 02/13/17 18:15 02/14/17 00:09 02/14/17 05:30 Red Blood Count 3.07 MIL/MM3 (4.00-5.30) 2.81 MIL/MM3 (4.00-5.30) Hemoglobin 8.7 GM/DL (11.6-15.3) 9.1 GM/DL (11.6-15.3) 8.0 GM/DL (11.6-15.3) Hematocrit 26.5 % (35.0-46.0) 26.8 % (35.0-46.0) 24.4 % (35.0-46.0) Platelet Count 34 TH/MM3 (150-450) 30 TH/MM3 (150-450) Activated Partial Thromboplast Time 49.0 SEC (24.3-30.1) 56.2 SEC (24.3-30.1) 74.5 SEC (24.3-30.1) White Blood Count 3.7 TH/MM3 (4.0-11.0) Neutrophils (%) (Auto) 84.1 % (16.0-70.0) Lymphocytes (%) (Auto) 6.7 % (9.0-44.0) Monocytes (%) (Auto) 8.2 % (0.0-8.0) Lymphocytes # (Auto) 0.2 TH/MM3 (1.0-4.8) Platelet Estimate LOW (NORMAL) Ovalocytes 1+ (NORMAL) Acanthocytes OCC (NORMAL) Test 02/15/17 06:11 Red Blood Count 3.17 MIL/MM3 (4.00-5.30) Hemoglobin 9.3 GM/DL (11.6-15.3) Hematocrit 27.3 % (35.0-46.0) Prothrombin Time 11.8 SEC (9.8-11.6) Activated Partial Thromboplast Time 31.5 SEC (24.3-30.1) Imaging Last Impressions Chest X-Ray 02/12/17 1116 Signed Impressions: Service Date/Time: Sunday, February 12, 2017 11:33 - CONCLUSION: No acute disease. Sid Chaves Jr., MD Lung Scan-V Nuclear Medicine 02/12/17 0000 Signed Impressions: Service Date/Time: Sunday, February 12, 2017 14:45 - CONCLUSION: Intermediate to high probability for pulmonary embolism in this patient with previous thrombosis. Aj Jarrett MD FACR PE at Discharge GENERAL: This is a well-nourished, well-developed patient, anxious CARDIOVASCULAR: Regular rate RESPIRATORY: Clear to auscultation. Breath sounds equal bilaterally. No wheezes , rales, or rhonchi. GASTROINTESTINAL: Abdomen soft, non-tender, nondistended. MUSCULOSKELETAL: Extremities without clubbing, cyanosis. No joint tenderness, effusion, or edema noted. RLE edema >L NEUROLOGICAL: Awake and alert. No focal deficits noted. Motor and sensory grossly within normal limits. Five out of 5 muscle strength in all muscle groups. Normal speech. Hospital Course Pulmonary embolism - Pt is a 71 y/o female with anxiety, hyperlipidemia and CKD, stage 3 who presented to the ED at [facility] with complaints of Abd pain and constipation - Pt underwent vaginal exploration under anesthesia, cystoscopy, sigmoidoscopy, and exploratory laparotomy with loop colostomy placement on 01/10/[address] and Dr. Rowe. She was found to have disease at the top of the vagina which is invading bladder and obstructing the colon. 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 The tumor is at least 8 mm in diameter. The depth of invasion cannot be determined in this biopsy. 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 The tumor is at least 5 mm in diameter and 4 mm in depth - Cytology pathology report final diagnosis urine: Atypical squamous cells with dysplastic features - Outpatient bilateral lower extremity ultrasound revealed superficial and deep veins of both lower extremities show the right lower extremity to have extensive deep vein thrombosis involving the patient's right superficial femoral artery, right popliteal vein and right posterior tibial vein. There appears to be possible clot in the superficial area of the right popliteal fossa versus hemorrhagic bakers cyst no blood flow noted Patient presents to the ER today VQ scan obtained and revealed: high probability for PE, patient started on heparin drip per ER - Plt 47,000 (02/12) -> 37,000 (02/13) -> 30,000 (02/14) plt transfusion -> 153, 000 (02/15) - consult placed to hematology/oncology for further anticoagulation recommendations, appreciate input. - discussed with Dr. Hollingsworth as well as [facility] oncology CHARITY Moya - patient unable to tolerate anticoagulation due to hematuria and hgb drop, discussed case with hematology Dr. Boswell and IR MD - 2 units PRBCs and plt given 02/14 - 02/14 Discussed with patient she reports the hematuria has stopped and she does not want filter placed at this time. would like to continue anticoagulation. Discussed with Mayi Givens, recommending initiate Coumadin if no bleeding - patient again had hematuria through the night causing heparin drip to be stopped - Plan for placement of removable IVC filter today with IR, discussed in depth with patient and all questions answered to best of my ability patient agreeable to filter placement - case discussed by Dr. Olguin with IR - 2 units PRBC 02/14 - 02/15 removable IVC filter placed by IR- who recommends removing IVC filter as soon a s patient can tolerate anticoagulation or if patient requires filter for longer than 6 months IR recommends removing this filter and place a permanent filter - PT recommending rehab short term at [place], patient refusing rehab to [facility] PT wants to go home. agreeable to [facility] DVT (deep venous thrombosis) see above Squamous cell carcinoma follows with Dr. Rowe recently received chemo therapy supportive care and IV fluids Urinary tract infection Urine culture results showed 10-50,000 mixed mayra Asymptomatic no further abx Diarrhea possibly related to chemo/radiation C Diff ordered and pending C diff positive Continue Flagyl 500mg Q8H Pt Condition on Discharge: Stable Discharge Disposition: Disch w/ Home Health Serv Discharge Instructions DIET: Follow Instructions for: As Tolerated, No Restrictions Activities you can perform: Regular-No Restrictions Follow up Referrals: Oncology - [address] Rowe PCP Follow-up - [address] Teresa New Medications: Metronidazole (Flagyl) 500 Mg Tab 500 MG PO Q8H for C Diff for 11 Days, #33 TAB 0 Refills Continued Medications: Alprazolam (Alprazolam) 0.25 Mg Tab 0.25 MG PO TID PRN for ANXIETY, TAB 0 Refills Hydrocodone-Acetaminophen (Harrington) 7.5-325 mg Tab 1 TAB PO Q4H PRN for PAIN, #30 TAB 0 Refills Lisinopril (Lisinopril) 10 Mg Tab 10 MG PO Q12HR for blood pressure, #60 TAB 0 Refills Ondansetron (Zofran) 4 Mg Tab 4 MG PO Q8HR PRN for NAUSEA OR VOMITING, #10 TAB 0 Refills Pantoprazole (Protonix) 40 Mg Tab 40 MG PO DAILY for Ulcer Prevention, #30 TAB 0 Refills Prochlorperazine Supp (Prochlorperazine Supp) 25 Mg Supp 25 MG RECTAL Q6H PRN for NAUSEA OR VOMITING, #30 SUPP 0 Refills Discontinued Medications: Nitrofurantoin Monohydrate Macrocrystals (Macrobid) 100 Mg Cap 100 MG PO BID for Infection for 5 Days, #10 CAP 0 Refills Additional Information Patient examined. Assessment and plan formulated with Ruth King PA-C. I agree with the above. Ruth King Feb 15, 2017 10:35 Javed Olguin DO Feb 18, 2017 23:47
--- NOTE | 2017-02-15 12:34 | PD.ONC.PN ---
Subjective Subjective Remarks Afebrile overnight. Patient resting in room. Frustrated that she started bleeding into her urine again. Objective Data Date Time Temp Pulse Resp B/P (MAP) Pulse Ox O2 Delivery O2 Flow Rate FiO2 02/15/17 12:23 97.5 69 18 147/64 (91) 100 02/15/17 09:23 66 02/15/17 08:57 97.8 64 17 133/65 (87) 99 02/15/17 06:35 98.0 63 16 126/65 98 02/15/17 06:20 98.1 63 16 131/65 97 02/15/17 03:44 64 02/15/17 03:35 98.4 71 18 112/55 (74) 97 02/15/17 03:32 98.4 71 16 112/55 97 02/15/17 02:31 97.7 73 17 156/73 99 02/15/17 02:16 97.7 74 16 177/78 99 02/15/17 01:40 98.6 73 16 175/76 99 02/15/17 00:43 98.0 72 20 165/77 (106) 100 02/15/17 00:40 98.2 70 18 180/76 99 02/14/17 23:51 98.4 71 18 158/74 100 02/14/17 23:47 71 02/14/17 20:47 98.7 88 20 162/73 (102) 97 02/14/17 19:57 97.8 85 18 147/67 99 02/14/17 19:47 91 02/14/17 16:49 97.5 87 20 153/70 99 02/14/17 16:34 97.6 88 20 141/65 99 02/14/17 16:17 97.6 89 18 153/68 (96) 100 02/15/17 02/15/17 02/15/17 07:00 15:00 23:00 Intake Total 439 ml 400 ml Output Total 750 ml Balance -311 ml 400 ml Result Diagram: 02/15/17 0611 02/13/17 0600 Laboratory Results Laboratory Tests Test 02/15/17 06:11 White Blood Count 4.0 TH/MM3 Red Blood Count 3.17 MIL/MM3 Hemoglobin 9.3 GM/DL Hematocrit 27.3 % Mean Corpuscular Volume 86.0 FL Mean Corpuscular Hemoglobin 29.3 PG Mean Corpuscular Hemoglobin Concent 34.1 % Red Cell Distribution Width 14.4 % Platelet Count 153 TH/MM3 Mean Platelet Volume 8.6 FL Prothrombin Time 11.8 SEC Prothromb Time International Ratio 1.2 RATIO Activated Partial Thromboplast Time 31.5 SEC Culture Results Microbiology Date/Time Source Procedure Growth Status 02/13/17 05:00 Stool Stool Stool Occult Blood (TEO) - Final HEMOCCULT NEGATIVE Complete 02/12/17 12:54 Urine Clean Catch Urine Culture - Final 10-50,000 CFU/ML MIXED FLEX... Complete Administered Medications Medications (Trade) Dose Ordered Sig/Gregg Route PRN Reason Start Time Stop Time Status Last Admin Dose Admin Sodium Chloride (NS Flush) 2 ml BID IV FLUSH 02/12/17 21:00 02/15/17 08:30 Potassium Chloride/Sodium Chloride 1,000 ml @ 85 mls/hr [id number] IV 02/12/17 17:00 02/14/17 05:17 Lisinopril (Prinivil) 10 mg Q12HR PO 02/12/17 21:00 02/15/17 08:30 Pantoprazole Sodium (Protonix) 40 mg DAILY PO 02/13/17 09:00 02/15/17 08:30 Clonidine (Catapres) 0.2 mg Q6H PRN PO SBP above 160 02/12/17 19:15 02/15/17 02:05 Metronidazole (Flagyl) 500 mg Q8H PO 02/13/17 18:00 02/15/17 10:11 Sodium Chloride 250 ml @ 15 mls/hr ONCE ONCE IV 02/14/17 22:30 02/15/17 15:09 02/14/17 22:30 Objective Remarks GENERAL: Elderly female sitting up in bed, frustrated. SKIN: Warm and dry. HEAD: Normocephalic. EYES: No injection or drainage. NECK: Supple, trachea midline. CARDIOVASCULAR: Regular rate and rhythm RESPIRATORY: Breath sounds equal bilaterally. No accessory muscle use. GASTROINTESTINAL: Abdomen soft, non-tender, nondistended. EXTREMITIES: No cyanosis NEUROLOGICAL: awake and alert, normal speech. moving extremities. Assessment/Plan Assessment 71 y/o woman with provoked extensive RLE DVT associated w/ high risk PE, anticoagulant tx complicated by hematuria and C-diff infection. Plan 1. recommend IVC filter placement. 2. monitor CBC Attending Statement The exam, history, and the medical decision-making described in the above note were completed with the assistance of the mid-level provider. I reviewed and agree with the findings presented. I attest that I had a [id number] encounter with the patient on the same day, and personally performed and documented my assessment and findings in the medical record. Patient states that she received heparin twice and on each occasion she had significant bleeding in the urine, She is not bleeding currently and the right leg is not painful and there has been no progressive swelling. Will hold on anticoagulation for the present and she can go home tomorrow. IF she develops progressive swelling of the leg one could consider a third attempt to anticoagulate but the risk of bleed will remain significant. Chelsey Givens Feb 15, 2017 12:34 Juve Moss MD Feb 15, 2017 18:45
[2017-02-15] MEDS ORDERED: IOHEXOL 350 MG/ML 50 ML BTL (for RAD DIAG) OTHER ONE (12:56)
--- NOTE | 2017-02-15 14:29 | RADRPT ---
EXAM DATE/TIME: 02/15/2017 12:14 [place] COMPARISON: LUNG VENTILATION & PERFUSION SCAN, February 12, 2017, 14:45. INDICATIONS : 71-year-old female with history of DVT and PTE. Patient has malignancy with multiple episodes of caro k hematuria following anticoagulation. Therefore, IVC filter placement has been requested. MEDICAL HISTORY : HTN, HLD, CKD Stage 3, Esophagitis, Cervical cancer SURGICAL HISTORY : Biopsy of cervix, Bilateral oophorectomy and hysterectomy, Loop colostomy placement, Cystoscopy, Sigm oidoscopy ENCOUNTER: Initial ACUITY: 4 - 6 days PAIN SCORE: 0/10 FLUORO TIME: 5.9 minutes IMAGE SERIES: 1 ACCESS SITE: Right Internal jugular vein CONTRAST: 1.) 20 cc Omnipaque (iohexol) 350 DEVICE(S): 1.) Inferior vena cava Retrievable Jugular Bard Fisher filter 2.) Inferior vena cava 25MM [place] snare kit PROCEDURE : 1. Ultrasound-guided venipuncture. 2. Inferior venacavogram. 3. Inferior vena cava filter placement. 4. Conscious sedation with continuous EKG and oximetry monitoring. The risks, benefits and alternatives to the procedure were explained and verbal and written consent w as obtained. The site was prepped in sterile fashion. Full sterile technique was used, including ca p, mask, sterile gloves and gown and a large sterile sheet. Hand hygiene and 2% chlorhexidine and/or betadine/alcohol prep was utilized per protocol for cutaneous antisepsis. Sterile gel and sterile p robe cover were utilized for ultrasound guidance. The skin and subcutaneous tissues were infiltrated with local anesthetic solution. With ultrasound and fluoroscopic guidance the targeted vein was punctured and a vascular sheath was p laced. Inferior venacavogram was performed to demonstrate level of renal veins. No caval thrombus was identified. The prescribed filter was deployed in the infrarenal inferior vena cava. Following deplo yment the filter was identified in good position. Conscious sedation was performed with the prescribed dosages and duration as above in the presence of an independent trained radiology nurse to assist in the monitoring of the patient. EKG and oximetry remained stable throughout the procedure. The patient tolerated the procedure well and there were n o complications. The patient was sent to post anesthesia recovery in stable condition. CONCLUSION: 1. Uncomplicated retrievable inferior vena cava filter placement as above. Note: IVC filter should be considered for removal as soon as patient is able to tolerate anticoagulat ion. Alternatively, if patient's prognosis is reasonable and patient continues to have contraindicati on to anticoagulation in 6 months, consider exchange of IVC filter for non-retrievable IVC filter due to improved safety profile. Nahid Ga MD on February 15, 2017 at 14:23 Board Certified Radiologist. This report was verified electronically.
[2017-02-15] MEDS ORDERED: WARFARIN SOD 5 MG TAB PO SCH (16:00)
[2017-02-16 00:51] VITALS: BP 148/72; PULSE 75; RESP 17; TEMP 98.1; O2SAT 97
[2017-02-16] MEDS: metroNIDAZOLE 500 MG TAB PO SCH ×2 (02:07→10:37)
[2017-02-16] MEDS: NS + KCL 20 MEQ INJ 1,000 ML IV SCH (03:22)
[2017-02-16 04:30] VITALS: BP 156/76; PULSE 77; RESP 17; TEMP 98.6; O2SAT 99
[2017-02-16 07:00] LABS: INTERNATIONAL NORMALIZED RATIO 1.1 RATIO
[2017-02-16 07:01] LABS: PROTHROMBIN TIME - PATIENT 11.5 SEC (9.8-11.6)
[2017-02-16 08:17] VITALS: BP 159/74; PULSE 77; RESP 18; TEMP 98.1; O2SAT 97
[2017-02-16] MEDS: PANTOPRAZOLE SOD 40 MG DELAYED RELEASE TAB PO SCH (08:34)
[2017-02-16] MEDS: LISINOPRIL 10 MG TAB PO SCH (08:34)
[2017-02-16] MEDS: SODIUM CHLORIDE 0.9% FLUSH 10 ML FLUSH IV FLUSH SCH (08:35)
[2017-02-16 12:12] VITALS: BP 165/77; PULSE 78; RESP 18; TEMP 98.5; O2SAT 98
== END 2017-02-16 15:02 | disposition home health service (06) | DRG 167 ==
LOC: NEPC 10:32 → NEDA 16:34 → N05B 18:45
PROVIDERS: ADMIT Hospitalist; ATTEND Hospitalist
PROC: 30243R1 Transfusion of Nonautologous Platelets into Central Vein, Percutaneous Approach (ICD-10-PCS; 2017-02-14)
PROC: 30243N1 Transfusion of Nonautologous Red Blood Cells into Central Vein, Percutaneous Approach (ICD-10-PCS; 2017-02-14)
PROC: 06H03DZ Insertion of Intraluminal Device into Inferior Vena Cava, Percutaneous Approach (ICD-10-PCS; principal; 2017-02-15)
PROC: B5191ZZ Fluoroscopy of Inferior Vena Cava using Low Osmolar Contrast (ICD-10-PCS; 2017-02-15)
DX: I26.99 Other pulmonary embolism without acute cor pulmonale (principal); N39.0 Urinary tract infection, site not specified; A04.72 Enterocolitis due to Clostridium difficile, not specified as recurrent; I82.431 Acute embolism and thrombosis of right popliteal vein; N18.3 Chronic kidney disease, stage 3 (moderate); D69.59 Other secondary thrombocytopenia; R31.9 Hematuria, unspecified; I12.9 Hypertensive chronic kidney disease with stage 1 through stage 4 chronic kidney disease, or unspecified chronic kidney disease; F41.9 Anxiety disorder, unspecified; E78.5 Hyperlipidemia, unspecified; Z93.3 Colostomy status; Z86.718 Personal history of other venous thrombosis and embolism; Z92.21 Personal history of antineoplastic chemotherapy; C52 Malignant neoplasm of vagina; E55.9 Vitamin D deficiency, unspecified; Z87.891 Personal history of nicotine dependence; Z92.3 Personal history of irradiation; Z88.0 Allergy status to penicillin; Z91.012 Allergy to eggs
CPT/HCPCS: 36430; 37191; 71010; 77014; 77386; 77387; 78582; 80048; 80053; 81001; 82272; 83735; 85014; 85018; 85025; 85027; 85610; 85730; 86850; 86900; 86901; 86920; 87086; 87493; 93005; 96361; 96374; A9540; A9567; C1769; C1773; C1880; C1887; J1644; J1650; J1940; J2405; J3480; J7030; J7050; P9016; P9035; Q9967

== ENCOUNTER 2017-02-27 08:14 | Inpatient (IN) | payer MEDICARE ==
[2017-02-27] VITALS (9 sets, daily range): BP systolic 105–133; BP diastolic 37–68; PULSE 84–99; RESP 16–20; TEMP 97.8–98.1; O2SAT 98–100
[~2017-02-27] VITALS: Ht 165.1 cm; Wt 68.3 kg
[~2017-02-27 08:14] MED LIST changes: +ALPR0.25 PO; -MACR100C2 PO; +METR-1 PO
[2017-02-27] MEDS ORDERED: SODIUM CHLOR 0.9% 1000 ML INJ 1,000 ML IV ONE ×2 (08:23→10:45)
[2017-02-27] MEDS ORDERED: ONDANSETRON HCL 4 MG/2 ML VIAL IVP ONE (08:30)
[2017-02-27] MEDS ORDERED: SODIUM CHLORIDE 0.9% FLUSH 10 ML FLUSH IVF PRN (08:30)
--- NOTE | 2017-02-27 08:32 | PD ---
HPI Chief Complaint: Dizziness Time Seen by Provider: 08:17 Travel History International Travel<30 days: No Contact w/Intl Traveler<30days: No Traveled to known affect area: No History of Present Illness HPI The patient is a 71-year-old female who presents emergency department for dizziness and lightheadedness. The patient has a history of pelvic carcinoma, unknown per patient, but is followed by her oncologic surgeon, Dr. De Los Santos, and her radiation oncologist, Dr. Walsh. The patient states she is currently undergoing chemotherapy and radiation therapy, has had persistent nausea for last several weeks, twice a day. She has been taking promethazine at home with mild alleviation of her symptoms. The patient states she went to use the restroom this morning, with the assistance of her , when she stood up she became lightheaded and dizzy. The help the patient to the ground, she did not have a true syncopal episode, according to EMS there was a questionable loss of consciousness. The patient does complain of lightheadedness and dizziness, with a with standing upright with mild nausea. The patient denies any headache, chest pain, or shortness of breath. She does have a history of previous abdominal surgery for her cancer with subsequent colostomy. The patient denies any palpitations, chest pain, or shortness of breath. Symptoms are moderate. PFSH Past Medical History Autoimmune Disease: No Anxiety: Yes Depression: No Heart Rhythm Problems: No Cancer: Yes (pelvic mass squamous cell ) Cardiovascular Problems: Yes High Cholesterol: No Chemotherapy: Yes Chest Pain: No Congestive Heart Failure: No Diminished Hearing: No Endocrine: No Gastrointestinal Disorders: Yes (hx sigmoid obstruction) GERD: No Genitourinary: No Hiatal Hernia: No Immune Disorder: No Kidney Stones: No Musculoskeletal: No Neurologic: No Psychiatric: Yes Reproductive: Yes Respiratory: No Radiation Therapy: No Renal Failure: No Ulcer: No ?: Not Ovarian Cysts: Yes (BILATERAL OOPHERECTOMY, PER PT UTERUS STILL INTACT) Past Surgical History Abdominal Surgery: No Cardiac Surgery: No Ear Surgery: No Endocrine Surgery: No Eye Surgery: No Genitourinary Surgery: Yes (cx in abdomen) Gynecologic Surgery: Yes (ovaries removed) Oral Surgery: No Thoracic Surgery: No Other Surgery: Yes Social History Alcohol Use: No Tobacco Use: No Substance Use: No Allergies-Medications (Allergen,Severity, Reaction): Coded Allergies: egg (Verified Allergy, Severe, 02/27/17) succinylcholine (Verified Allergy, Severe, 02/27/17) penicillin G (Verified Allergy, Unknown, 02/27/17) Reported Meds & Prescriptions Reported Meds & Active Scripts Active Flagyl (Metronidazole) 500 Mg Tab 500 Mg PO Q8H 11 Days Prochlorperazine Supp (Prochlorperazine) 25 Mg Supp 25 Mg RECTAL Q6H PRN [place] (Hydrocodone-Acetaminophen) 7.5-325 mg Tab 1 Tab PO Q4H PRN Zofran (Ondansetron HCl) 4 Mg Tab 4 Mg PO Q8HR PRN Protonix (Pantoprazole Sodium) 40 Mg Tab 40 Mg PO DAILY Lisinopril 10 Mg Tab 10 Mg PO Q12HR Reported Alprazolam 0.25 Mg Tab 0.25 Mg PO TID PRN Review of Systems Except as stated in HPI: all other systems reviewed are Neg General / Constitutional: No: Fever HENT: Positive: Lightheadedness Cardiovascular: No: Chest Pain or Discomfort, Palpitations, Irregular Rhythm, Tachycardia, Diaphoresis Respiratory: No: Shortness of Breath Gastrointestinal: Positive: Nausea, Vomiting, Other (colostomy), No: Diarrhea, Abdominal Pain Musculoskeletal: Positive: Weakness Neurologic: Positive: Weakness, Dizziness Physical Exam Narrative GENERAL: Awake, alert, 71 year-old female who appears her stated age and is in no acute respiratory distress. SKIN: Focused skin assessment warm/dry. Poor skin turgor. HEAD: Atraumatic. Normocephalic. EYES: Pupils equal and round. No scleral icterus. No injection or drainage. ENT: No nasal bleeding or discharge. Dry mucous membranes. NECK: Trachea midline. No JVD. CARDIOVASCULAR: Regular, tachycardic with a heart rate of 105. RESPIRATORY: No accessory muscle use. Clear to auscultation. Breath sounds equal bilaterally. GASTROINTESTINAL: Abdomen soft, non-tender, nondistended. Colostomy right sided abdomen with some partially solid stool and liquid stool noted, brown. MUSCULOSKELETAL: No obvious deformities. No clubbing. No cyanosis. No edema. NEUROLOGICAL: Awake and alert. No obvious cranial nerve deficits. Motor grossly within normal limits. Normal speech. PSYCHIATRIC: Appropriate mood and affect; insight and judgment normal. Data Data Last Documented VS Vital Signs Date Time Temp Pulse Resp B/P (MAP) Pulse Ox O2 Delivery O2 Flow Rate FiO2 02/27/17 10:47 96 117/65 (82) 96 113/56 (75) 94 109/37 (61) 02/27/17 08:22 98.0 19 99 Room Air Orders Orders Electrocardiogram (02/27/17 08:23) Complete Blood Count With Diff (02/27/17 08:23) Comprehensive Metabolic Panel (02/27/17 08:23) Magnesium (Mg) (02/27/17 08:23) Ckmb (Isoenzyme) Profile (02/27/17 08:23) Troponin I (02/27/17 08:23) Act Partial Throm Time (Ptt) (02/27/17 08:23) Prothrombin Time / Inr (Pt) (02/27/17 08:23) Urinalysis - C+S If Indicated (02/27/17 08:23) Ecg Monitoring (02/27/17 08:23) Iv Access Insert/Monitor (02/27/17 08:23) Oximetry (02/27/17 08:23) Ondansetron Inj (Zofran Inj) (02/27/17 08:30) Sodium Chloride 0.9% Flush (Ns Flush) (02/27/17 08:30) Sodium Chlor 0.9% 1000 Ml Inj (Ns 1000 M (02/27/17 08:23) Orthostatic Vital Signs (02/27/17 08:23) Aspirin Chew (Aspirin Chew) (02/27/17 10:00) Potassium Chlor 20 Meq Premix (Kcl 20 Me (02/27/17 10:00) Chest, Single Ap (02/27/17 ) Sodium Chlor 0.9% 1000 Ml Inj (Ns 1000 M (02/27/17 10:45) Ondansetron Inj (Zofran Inj) (02/27/17 11:00) Admit Order (Ed Use Only) (02/27/17 11:25) Labs Laboratory Tests Test 02/27/17 09:15 White Blood Count 3.4 TH/MM3 Red Blood Count 3.47 MIL/MM3 Hemoglobin 10.7 GM/DL Hematocrit 30.9 % Mean Corpuscular Volume 88.9 FL Mean Corpuscular Hemoglobin 30.8 PG Mean Corpuscular Hemoglobin Concent 34.6 % Red Cell Distribution Width 15.2 % Platelet Count 82 TH/MM3 Mean Platelet Volume 7.9 FL Neutrophils (%) (Auto) 84.5 % Lymphocytes (%) (Auto) 3.4 % Monocytes (%) (Auto) 11.1 % Eosinophils (%) (Auto) 0.7 % Basophils (%) (Auto) 0.3 % Neutrophils # (Auto) 2.9 TH/MM3 Lymphocytes # (Auto) 0.1 TH/MM3 Monocytes # (Auto) 0.4 TH/MM3 Eosinophils # (Auto) 0.0 TH/MM3 Basophils # (Auto) 0.0 TH/MM3 CBC Comment AUTO DIFF Differential Total Cells Counted 100 Neutrophils % (Manual) 66 % Band Neutrophils % 20 % Lymphocytes % 7 % Monocytes % 6 % Neutrophils # (Manual) 3.0 TH/MM3 Myelocytes 1 % Differential Comment FINAL DIFF MANUAL Platelet Estimate LOW Platelet Morphology Comment NORMAL Ovalocytes 1+ Blood Urea Nitrogen 18 MG/DL Creatinine 0.88 MG/DL Random Glucose 89 MG/DL Total Protein 5.3 GM/DL Albumin 2.2 GM/DL Calcium Level 7.0 MG/DL Magnesium Level 1.4 MG/DL Alkaline Phosphatase 75 U/L Aspartate Amino Transf (AST/SGOT) 32 U/L Alanine Aminotransferase (ALT/SGPT) 36 U/L Total Bilirubin 0.6 MG/DL Sodium Level 136 MEQ/L Potassium Level 2.6 MEQ/L Chloride Level 103 MEQ/L Carbon Dioxide Level 18.7 MEQ/L Anion Gap 14 MEQ/L Estimat Glomerular Filtration Rate 63 ML/MIN Protein Corrected Calcium 7.9 MG/DL Total Creatine Kinase 22 U/L Troponin I 0.11 NG/ML MDM Medical Decision Making Medical Screen Exam Complete: Yes Emergency Medical Condition: Yes Medical Record Reviewed: Yes Interpretation(s) EKG reveals normal sinus rhythm with a rate in 93. No ischemic changes or ectopy noted. Laboratory Tests Test 02/27/17 09:15 White Blood Count 3.4 TH/MM3 Red Blood Count 3.47 MIL/MM3 Hemoglobin 10.7 GM/DL Hematocrit 30.9 % Mean Corpuscular Volume 88.9 FL Mean Corpuscular Hemoglobin 30.8 PG Mean Corpuscular Hemoglobin Concent 34.6 % Red Cell Distribution Width 15.2 % Platelet Count 82 TH/MM3 Mean Platelet Volume 7.9 FL Neutrophils (%) (Auto) 84.5 % Lymphocytes (%) (Auto) 3.4 % Monocytes (%) (Auto) 11.1 % Eosinophils (%) (Auto) 0.7 % Basophils (%) (Auto) 0.3 % Neutrophils # (Auto) 2.9 TH/MM3 Lymphocytes # (Auto) 0.1 TH/MM3 Monocytes # (Auto) 0.4 TH/MM3 Eosinophils # (Auto) 0.0 TH/MM3 Basophils # (Auto) 0.0 TH/MM3 CBC Comment AUTO DIFF Differential Total Cells Counted 100 Neutrophils % (Manual) 66 % Band Neutrophils % 20 % Lymphocytes % 7 % Monocytes % 6 % Neutrophils # (Manual) 3.0 TH/MM3 Myelocytes 1 % Differential Comment FINAL DIFF MANUAL Platelet Estimate LOW Platelet Morphology Comment NORMAL Ovalocytes 1+ Blood Urea Nitrogen 18 MG/DL Creatinine 0.88 MG/DL Random Glucose 89 MG/DL Total Protein 5.3 GM/DL Albumin 2.2 GM/DL Calcium Level 7.0 MG/DL Magnesium Level 1.4 MG/DL Alkaline Phosphatase 75 U/L Aspartate Amino Transf (AST/SGOT) 32 U/L Alanine Aminotransferase (ALT/SGPT) 36 U/L Total Bilirubin 0.6 MG/DL Sodium Level 136 MEQ/L Potassium Level 2.6 MEQ/L Chloride Level 103 MEQ/L Carbon Dioxide Level 18.7 MEQ/L Anion Gap 14 MEQ/L Estimat Glomerular Filtration Rate 63 ML/MIN Protein Corrected Calcium 7.9 MG/DL Total Creatine Kinase 22 U/L Troponin I 0.11 NG/ML Chest x-ray reveals port in place. Otherwise unremarkable. Differential Diagnosis Differential diagnosis includes dehydration, orthostatic hypotension, hypokalemia, hyperkalemia, arrhythmia, syncope, intracranial hemorrhage, debility. Narrative Course IV was established, labs are drawn and sent, the patient was placed on cardiac telemetry monitoring and continuous pulse oximetry monitoring. EKG was ordered and interpreted. Orthostatic vital signs were obtained. The patient was administered 1 L of IV fluids. The patient's white count was slightly low at 3.4, however, bands are elevated at 20. Potassium is low at 2.6, troponin was elevated 0.11. The patient has no acute chest pain, does have dizziness, worse with orthostatics. Patient is reevaluated after 1 L normal saline, still has nausea. The patient states she was unable to have chemotherapy last week because of her blood counts. Patient appears to be dehydrated with secondary elevated troponin and will require 23 hour observation for IV fluids and potassium supplementation. The patient has for healthcare, therefore, the on- call [facility] physician was paged for admission. The patient did have an elevated troponin, may be secondary to pulmonary embolism, she was diagnosed with pulmonary embolism in January, had a IVC filter placed, apparently was not a candidate for anticoagulation. She has no acute chest pain, I doubt STEMI. EKG revealed no ischemic changes. The attending was made aware of these findings. Patient will be 23 hour observation. Physician Communication Physician Communication The on-call [facility] physician was paged for 23 hour observation. I discussed the patient with Dr. Olguin who agrees with 23 hour observation. Diagnosis Primary Impression: Dehydration Additional Impressions: Orthostatic dizziness Hypokalemia Bandemia Admitting Information Admitting Physician Requests: Observation Condition: Stable Daren Wheeler MD Feb 27, 2017 08:32
[2017-02-27 09:24] LABS: AUTOMATED NEUTROPHIL # 2.9 TH/MM3 (1.8-7.7); BASOPHIL % 0.3 % (0.0-2.0); EOSINOPHIL % 0.7 % (0.0-4.0); HEMATOCRIT 30.9 % (35.0-46.0); HEMOGLOBIN 10.7 GM/DL (11.6-15.3); LYMPH % 3.4 % (9.0-44.0); LYMPHOCYTE # 0.1 TH/MM3 (1.0-4.8); MEAN CELL VOLUME 88.9 FL (80.0-100.0); MEAN CORPUSCULAR HEMOGLOBIN 30.8 PG (27.0-34.0); MEAN CORPUSCULAR HGB CONC 34.6 % (32.0-36.0); MEAN PLATELET VOLUME 7.9 FL (7.0-11.0); MONO % 11.1 % (0.0-8.0); MONOCYTE # 0.4 TH/MM3 (0-0.9); NEUT % 84.5 % (16.0-70.0); PLATELET COUNT 82 TH/MM3 (150-450); RED BLOOD COUNT 3.47 MIL/MM3 (4.00-5.30); RED CELL DISTRIBUTION WIDTH 15.2 % (11.6-17.2); WHITE BLOOD COUNT 3.4 TH/MM3 (4.0-11.0)
[2017-02-27 09:50] LABS: ALBUMIN 2.2 GM/DL (3.4-5.0); BICARBONATE 18.7 MEQ/L (21.0-32.0); CALCIUM-PROTEIN CORRECTED 7.9 MG/DL (8.5-10.1); CREATININE 0.88 MG/DL (0.50-1.00); MAGNESIUM 1.4 MG/DL (1.5-2.5); TOTAL BILIRUBIN ADULT 0.6 MG/DL (0.2-1.0); TOTAL PROTEIN 5.3 GM/DL (6.4-8.2); TROPONIN I 0.11 NG/ML (0.02-0.05)
[2017-02-27] MEDS ORDERED: ASPIRIN 81 MG CHEW TAB CHEW ONE (10:00)
[2017-02-27 10:23] LABS: BANDS 20 % (0-6); LYMPHOCYTES 7 % (9-44); MONOCYTES 6 % (0-8); MYELOCYTES 1 % (0-0); POLYS (SEG NEUTROPHILS) 66 % (16-70)
[2017-02-27 10:24] LABS: OVALOCYTES 1+ (NORMAL)
[2017-02-27] MEDS ORDERED: ONDANSETRON HCL 4 MG/2 ML VIAL IV PUSH ONE (11:00)
--- NOTE | 2017-02-27 11:15 | RADRPT ---
EXAM DATE/TIME: 02/27/2017 10:07 [place] COMPARISON: CHEST SINGLE AP, February 12, 2017, 11:33. INDICATIONS : Syncope MEDICAL HISTORY : HTN, HLD, CKD Stage 3, Esophagitis, Cervical cancer SURGICAL HISTORY : Biopsy of cervix, Bilateral oophorectomy and hysterectomy, Loop colostomy, placement, Cystoscopy, Sig moidoscopy ENCOUNTER: Initial ACUITY: 1 day PAIN SCORE: 0/10 LOCATION: Bilateral chest FINDINGS: A single view of the chest demonstrates the lungs to be symmetrically aerated without evidence of mas s, infiltrate or effusion. The cardiomediastinal contours are unremarkable. Osseous structures are intact. [id number] is in place via right internal jugular approach with its tip in the superior ve na cava. CONCLUSION: 1. No acute cardiopulmonary disease. Anthony Perez MD on February 27, 2017 at 11:05 Board Certified Radiologist. This report was verified electronically.
[2017-02-27] MEDS: POTASSIUM CHLOR 20 MEQ PREMIX 100 ML IV SCH ×2 (11:19→12:57)
[2017-02-27 11:55] LABS: BACTERIA, URINE FEW /hpf; BILIRUBIN, URINE NEG (NEG); BLOOD, URINE MOD (NEG); GLUCOSE,URINE NEG (NEG); HYALINE CAST, URINE 3 /lpf (RARE); KETONE, URINE 40 mg/dL (NEG); MUCUS URINE FEW /lpf (OCC); NITRITE,URINE NEG (NEG); SQUAMOUS EPITHELIAL CELL URINE 1 /hpf (0-5); URINE COLOR YELLOW (YELLW/STRAW); URINE LEUKOCYTE ESTERASE MOD (NEG); WHITE BLOOD CELL CLUMPS RARE
[2017-02-27 11:58] LABS: INTERNATIONAL NORMALIZED RATIO 1.3 RATIO
[2017-02-27] MEDS ORDERED: ALPRAZolam 0.25 MG TAB PO PRN (12:15)
[2017-02-27] MEDS ORDERED: PROCHLORPERAZINE 25 MG SUPP RECTAL PRN (12:15)
[2017-02-27] MEDS: PANTOPRAZOLE SOD 40 MG DELAYED RELEASE TAB PO SCH (13:28)
--- NOTE | 2017-02-27 19:46 | HHI.HP ---
HPI Service [facility] Primary Care Physician Tianna Teresa MD Admission Diagnosis dehydration, elevated troponin, hypokalemia, orthostatic dizziness Chief Complaint: dehydration ,dizziness Travel History International Travel<30 Days: No Contact w/Intl Traveler <30 Da: No Traveled to Known Affected Are: No History of Present Illness The patient is a 71-year-old female who presents emergency department for dizziness and lightheadedness. The patient has a history of pelvic carcinoma, unknown per patient, but is followed by her oncologic surgeon, Dr. De Los Santos, and her radiation oncologist, Dr. Walsh. The patient states she is currently undergoing chemotherapy and radiation therapy, has had persistent nausea for last several weeks, twice a day. She has been taking promethazine at home with mild alleviation of her symptoms. The patient states she went to use the restroom this morning, with the assistance of her , when she stood up she became lightheaded and dizzy. The help the patient to the ground, she did not have a true syncopal episode, according to EMS there was a questionable loss of consciousness. The patient does complain of lightheadedness and dizziness, with a with standing upright with mild nausea. The patient denies any headache, chest pain, or shortness of breath. She does have a history of previous abdominal surgery for her cancer with subsequent colostomy. 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 The patient denies any palpitations, chest pain, or shortness of breath. Symptoms are moderate. Patient admitted for IV hydration and also found to have elevated troponin will follow up labs. Review of Systems Constitutional: COMPLAINS OF: Dizziness Other lightheaded Past Family Social History Past Medical History increase lipids ,recent PE with filter placed unable to tolerate blood thinners, anxiety,ckd stage 3 ,pelvic cancer on chemo Past Surgical History ivc filter,colostomy Reported Medications flagyl 500 q 8,nausea and pain meds protonix 40 lisinopril 10 bid xanax Allergies: Coded Allergies: egg (Verified Allergy, Severe, 02/27/17) succinylcholine (Verified Allergy, Severe, 02/27/17) penicillin G (Verified Allergy, Unknown, 02/27/17) Social History NS,ND Physical Exam Vital Signs Vital Signs Date Time Temp Pulse Resp B/P (MAP) Pulse Ox O2 Delivery O2 Flow Rate FiO2 1/4/18 16:00 97.8 89 20 113/65 (81) 100 02/27/17 15:12 02/27/17 13:00 88 19 124/65 (84) 100 Room Air 02/27/17 11:00 86 17 105/67 (80) 98 Room Air 02/27/17 10:47 96 117/65 (82) 96 113/56 (75) 94 109/37 (61) 02/27/17 09:35 88 16 117/65 (82) 100 Room Air 02/27/17 08:22 98.0 99 19 110/66 (81) 99 Room Air Physical Exam GENERAL: This is a well-nourished, well-developed patient, in no apparent distress. SKIN: No rashes, ecchymoses or lesions. Cool and dry. HEAD: Atraumatic. Normocephalic. No temporal or scalp tenderness. EYES: Pupils equal round and reactive. Extraocular motions intact. No scleral icterus. No injection or drainage. ENT: Nose without bleeding, purulent drainage or septal hematoma. Throat without erythema, tonsillar hypertrophy or exudate. Uvula midline. Airway patent. NECK: Trachea midline. No JVD or lymphadenopathy. Supple, nontender, no meningeal signs. CARDIOVASCULAR: Regular rate and rhythm without murmurs, gallops, or rubs. RESPIRATORY: Clear to auscultation. Breath sounds equal bilaterally. No wheezes , rales, or rhonchi. GASTROINTESTINAL: Abdomen soft, non-tender, nondistended. No hepato-splenomegaly , or palpable masses. No guarding.colostomy MUSCULOSKELETAL: Extremities without clubbing, cyanosis, or edema. No joint tenderness, effusion, or edema noted. No calf tenderness. Negative Homans sign bilaterally. NEUROLOGICAL: Awake and alert. Cranial nerves II through XII intact. Motor and sensory grossly within normal limits. Five out of 5 muscle strength in all muscle groups. Normal speech. Laboratory Laboratory Tests Test 02/27/17 09:15 02/27/17 10:00 02/27/17 11:00 White Blood Count 3.4 Red Blood Count 3.47 Hemoglobin 10.7 Hematocrit 30.9 Mean Corpuscular Volume 88.9 Mean Corpuscular Hemoglobin 30.8 Mean Corpuscular Hemoglobin Concent 34.6 Red Cell Distribution Width 15.2 Platelet Count 82 Mean Platelet Volume 7.9 Neutrophils (%) (Auto) 84.5 Lymphocytes (%) (Auto) 3.4 Monocytes (%) (Auto) 11.1 Eosinophils (%) (Auto) 0.7 Basophils (%) (Auto) 0.3 Neutrophils # (Auto) 2.9 Lymphocytes # (Auto) 0.1 Monocytes # (Auto) 0.4 Eosinophils # (Auto) 0.0 Basophils # (Auto) 0.0 CBC Comment AUTO DIFF Differential Total Cells Counted 100 Neutrophils % (Manual) 66 Band Neutrophils % 20 Lymphocytes % 7 Monocytes % 6 Neutrophils # (Manual) 3.0 Myelocytes 1 Differential Comment FINAL DIFF MANUAL Platelet Estimate LOW Platelet Morphology Comment NORMAL Ovalocytes 1+ Blood Urea Nitrogen 18 Creatinine 0.88 Random Glucose 89 Total Protein 5.3 Albumin 2.2 Calcium Level 7.0 Magnesium Level 1.4 Alkaline Phosphatase 75 Aspartate Amino Transf (AST/SGOT) 32 Alanine Aminotransferase (ALT/SGPT) 36 Total Bilirubin 0.6 Sodium Level 136 Potassium Level 2.6 Chloride Level 103 Carbon Dioxide Level 18.7 Anion Gap 14 Estimat Glomerular Filtration Rate 63 Protein Corrected Calcium 7.9 Total Creatine Kinase 22 Troponin I 0.11 Urine Color YELLOW Urine Turbidity HAZY Urine pH 6.0 Urine Specific [place] 1.017 Urine Protein 30 Urine Glucose (UA) NEG Urine Ketones 40 Urine Occult Blood MOD Urine Nitrite NEG Urine Bilirubin NEG Urine Urobilinogen LESS THAN 2.0 Urine Leukocyte Esterase MOD Urine RBC 20 Urine WBC 43 Urine WBC Clumps RARE Urine Squamous Epithelial Cells 1 Urine Bacteria FEW Urine Hyaline Casts 3 Urine Mucus FEW Microscopic Urinalysis Comment CULTURE INDICATED Prothrombin Time 13.0 Prothromb Time International Ratio 1.3 Activated Partial Thromboplast Time 23.9 Date/Time Source Procedure Growth Status 02/27/17 10:00 Urine Random Urine Urine Culture Pending Received Result Diagram: 02/27/17 0915 02/27/17 0915 Imaging Last 24 hours Impressions Chest X-Ray 02/27/17 0000 Signed Impressions: Service Date/Time: February 10:07 - CONCLUSION: 1. No acute cardiopulmonary disease. Anthony Perez MD Course ekg nsr no acute changesd Caprini VTE Risk Assessment Caprini VTE Risk Assessment: Mod/High Risk (score >= 2) Caprini Risk Assessment Model Point Value = 1 Point Value = 2 Point Value = 3 Point Value = 5 Age 41-60 Minor surgery BMI > 25 kg/m2 Swollen legs Varicose veins or History of unexplained or recurrent spontaneous Oral contraceptives or hormone replacement Sepsis (< 1 month) Serious lung disease, including pneumonia (< 1 month) Abnormal pulmonary function Acute myocardial infarction Congestive heart failure (< 1 month) History of inflammatory bowel disease Medical patient at bed rest Age 61-74 Arthroscopic surgery Major open surgery (> 45 min) Laparoscopic surgery (> 45 min) Malignancy Confined to bed (> 72 hours) Immobilizing plaster cast Central venous access Age >= 75 History of VTE Family history of VTE Factor V Leiden Prothrombin [id number] Lupus anticoagulant Anticardiolipin antibodies Elevated serum homocysteine Heparin-induced thrombocytopenia Other congenital or acquired thrombophilia Stroke (< 1 month) Elective arthroplasty Hip, pelvis, or leg fracture Acute spinal cord injury (< 1 month) Prophylaxis Regimen Total Risk Factor Score Risk Level Prophylaxis Regimen 0-1 Low Early ambulation 2 Moderate Order ONE of the following: *Sequential Compression Device (SCD) *Heparin 5000 units SQ BID 3-4 Higher Order ONE of the following medications: *Heparin 5000 units SQ TID *Enoxaparin/Lovenox 40 mg SQ daily (WT < 150 kg, CrCl > 30 mL/min) *Enoxaparin/Lovenox 30 mg SQ daily (WT < 150 kg, CrCl > 10-29 mL/min) *Enoxaparin/Lovenox 30 mg SQ BID (WT < 150 kg, CrCl > 30 mL/min) AND/OR *Sequential Compression Device (SCD) 5 or more Highest Order ONE of the following medications: *Heparin 5000 units SQ TID (Preferred with Epidurals) *Enoxaparin/Lovenox 40 mg SQ daily (WT < 150 kg, CrCl > 30 mL/min) *Enoxaparin/Lovenox 30 mg SQ daily (WT < 150 kg, CrCl > 10-29 mL/min) *Enoxaparin/Lovenox 30 mg SQ BID (WT < 150 kg, CrCl > 30 mL/min) AND *Sequential Compression Device (SCD) Assessment and Plan Problem List: (1) Dehydration ICD Codes: E86.0 - Dehydration Status: Acute Plan: hydrate with IV fluid follow up labs (2) Orthostatic dizziness ICD Codes: R42 - Dizziness and giddiness Status: Acute Plan: hydrate to see if improves symptoms (3) Squamous cell carcinoma ICD Codes: C44.92 - Squamous cell carcinoma of skin, unspecified Plan: pelvic origin consult to oncology (4) Elevated troponin ICD Codes: R74.8 - Abnormal levels of other serum enzymes Plan: ekg unremarkable recheck troponin Assessment and Plan as above Code Status full Discussed Condition With patient Jogre Johnson MD Feb 27, 2017 19:45
[2017-02-27] MEDS: NS + KCL 20 MEQ INJ 1,000 ML IV SCH (20:12)
[2017-02-27] MEDS ORDERED: MAGNESIUM SULFATE 1 GM PREMIX 100 ML IV ONE (21:00)
--- NOTE | 2017-02-27 22:09 | MB ---
cc: SEBASTIAN WHITTINGTON MD, RUBY ANNE E. M.D. DATE OF CONSULTATION 02/27/17 [address] Olguin CHIEF COMPLAINT Dr. Olguin requests a consultation for Mrs. Escobar regarding [employer] cancer. HISTORY OF PRESENT ILLNESS Mrs. Escobar is a 71-year-old woman, well-known patient from a previous consultation February 12, 2017. She was seen in consultation in the absence of Dr. Whittington who will return soon. She presented with abdominal pain, decreased appetite, nausea, difficulty with bowel movements. She was found to have a central pelvic mass measuring 4.2 cm. She required a diverting colostomy. Pathology showed squamous cell cancer invading the upper vagina into the bladder and compressing the bowel. She is undergoing concurrent chemotherapy and radiation. Her course was complicated by extensive right lower extremity deep vein thromboses. She had hematuria when anticoagulant therapy was initiated. She has not had any hematuria for several days, but has been reluctant to start anticoagulant therapy reassured by the filter. She complains of increasing nausea associated with the radiation therapy. She typically gets her chemotherapy on Fridays. She feels that she got dehydrated. She passed out after going to the bathroom supported by her . Her reports that she was out for a minute or two. She had no seizure event. She remembers blacking out. She denies any chest pain or shortness of breath. She was found to have symptoms of dehydration, anemia, thrombocytopenia and severe hypokalemia at the time of the admission. Her calcium was also low. Magnesium was decreased. She feels better after the electrolytes had been corrected. She is fearful of starting anticoagulation. She denies any bleeding. She has no external sherman from the radiation. She has no shortness of breath. She feels that the dehydration is what has caused her to pass out. We discussed the possibility of pulmonary embolism. She denies any fevers. The rest of her review of systems is negative. PAST MEDICAL HISTORY 1. Chronic renal insufficiency, 2. Anxiety, 3. Esophagitis, 4. Hyperlipidemia, 5. Vitamin D deficiency 6. Anemia 7. Hematuria 8. Extensive right lower extremity deep vein thromboses 9. Locally advanced vaginal squamous cell cancer. PAST SURGICAL HISTORY 1. Cervical biopsy 2. Cervical conization 3. Total abdominal hysterectomy and bilateral oophorectomy 4. Biopsy of vaginal dysplasia 5. IVC filter placement. FAMILY HISTORY Significant for myocardial infarction. There is family history of breast cancer, diabetes and Parkinson's. 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 She is , lives with her . She quit smoking in 2010 with a 15 pack-year smoking history. Denies any alcohol or illicit drug use. ALLERGIES EGGS SUCCINYLCHOLINE PENICILLIN G MEDICATIONS Current 1. Protonix 2. Xanax p.r.n. 3. Compazine suppository 4. IV fluid with potassium. PHYSICAL EXAMINATION VITAL SIGNS: Temperature 97.8, heart rate 89, respiratory rate 20, blood pressure 113/65, saturation 100%. GENERAL: Ms. Escobar is a well-developed, anxious-appearing woman in no acute distress. HEENT: Her pupils are round, reactive to light and accommodation. Oropharynx is clear. NECK: Supple. LUNGS: Clear. CARDIOVASCULAR: Normal rate, rhythm. ABDOMEN: Large and benign. Upper quadrant colostomy in place. Soft and nontender, no suprapubic tenderness. LOWER EXTREMITIES: Subtle asymmetry right leg more prominent than the left, good pulses. NEUROLOGIC: Exam is nonfocal. LABORATORY DATA Magnesium 1.4, potassium 2.6, hemoglobin 10.7, platelet count decreased at 82,000, mean platelet volume of 7.9, albumin is 2.2. ASSESSMENT/PLAN Ms. 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 She is receiving concurrent chemotherapy and radiation. Her course is complicated by extensive right lower extremity deep vein thromboses with high probability pulmonary embolism. She has had an IVC filter placed due to contraindication to anticoagulation from hematuria. At this point, she has no more hematuria. She is offered to start a low-dose of low-molecular weight heparin. She is reluctant to because of bleeding. We discussed the possibility of pulmonary embolism causing her to pass out. She is adamant and sure that she passed out because of dehydration which was present as well. We will defer starting anticoagulation until the patient is agreeable to it. If she has no hematuria, she would be a candidate to start anticoagulation. We discussed the role of the IVC filter does not replace anticoagulant therapy. IV fluid hydration continues. Potassium and magnesium will be replaced. Repeat electrolytes in the morning. Her anti-emetic therapy will be optimized. We discussed scheduling her for hydration in an outpatient setting to avoid hospitalization. We will monitor for bleeding and evaluate when safe to start low-molecular weight heparin bridged to a therapeutic INR. Platelet count will be monitored. Dr. Whittington will resume her care when he returns. MD ALPESH Hughes/ /8:01 PM /9:22 PM
[2017-02-28] VITALS (10 sets, daily range): BP systolic 133–151; BP diastolic 59–72; PULSE 74–93; RESP 16–18; TEMP 98–98.7; O2SAT 99–100
[2017-02-28] MEDS: NS + KCL 20 MEQ INJ 1,000 ML IV SCH ×2 (03:31→15:34)
[2017-02-28] MEDS: PANTOPRAZOLE SOD 40 MG DELAYED RELEASE TAB PO SCH (08:23)
[2017-02-28 09:15] LABS: CALCIUM 8.3 MG/DL (8.5-10.1); CREATININE 0.97 MG/DL (0.50-1.00)
[2017-02-28 09:20] LABS: TROPONIN I 0.14 NG/ML (0.02-0.05)
--- NOTE | 2017-02-28 12:00 | PD.ONC.PN ---
Subjective Subjective Remarks Afebrile overnight. Patient resting in chair in room. Feeling much improved. No further dizziness/syncope. No complaints. No hematuria. Objective Data Date Time Temp Pulse Resp B/P (MAP) Pulse Ox O2 Delivery O2 Flow Rate FiO2 02/28/17 08:00 98.5 87 18 150/67 (94) 100 02/28/17 05:00 98.1 82 16 134/59 (84) 100 02/28/17 04:12 75 02/28/17 00:08 76 02/27/17 23:11 98.1 84 16 133/68 (89) 100 02/27/17 20:27 Room Air 02/27/17 20:18 98.1 89 16 126/59 (81) 99 02/27/17 19:54 89 02/27/17 16:00 97.8 89 20 113/65 (81) 100 02/27/17 15:12 02/27/17 13:00 88 19 124/65 (84) 100 Room Air 02/28/17 02/28/17 02/28/17 07:00 15:00 23:00 Intake Total 1488 ml Output Total 400 ml Balance 1088 ml Result Diagram: 02/27/17 0915 02/28/17 0830 Laboratory Results Laboratory Tests Test 02/28/17 08:30 Blood Urea Nitrogen 17 MG/DL Creatinine 0.97 MG/DL Random Glucose 75 MG/DL Calcium Level 8.3 MG/DL Sodium Level 137 MEQ/L Potassium Level 4.2 MEQ/L Chloride Level 106 MEQ/L Carbon Dioxide Level 18.0 MEQ/L Anion Gap 13 MEQ/L Estimat Glomerular Filtration Rate 56 ML/MIN Troponin I 0.14 NG/ML Culture Results Microbiology Date/Time Source Procedure Growth Status 02/27/17 10:00 Urine Random Urine Urine Culture Pending Received Administered Medications Medications (Trade) Dose Ordered Sig/Gregg Route PRN Reason Start Time Stop Time Status Last Admin Dose Admin Potassium Chloride/Sodium Chloride 1,000 ml @ 85 mls/hr [id number] IV 02/27/17 12:15 02/28/17 03:31 Pantoprazole Sodium (Protonix) 40 mg DAILY PO 02/27/17 13:00 02/28/17 08:23 Objective Remarks GENERAL: Elderly female sitting up in chair next to bed in nad. SKIN: Warm and dry. HEAD: Normocephalic. EYES: No injection or drainage. NECK: Supple, trachea midline. CARDIOVASCULAR: Regular rate and rhythm RESPIRATORY: Breath sounds equal bilaterally. No accessory muscle use. GASTROINTESTINAL: Abdomen soft, non-tender, nondistended. EXTREMITIES: No cyanosis NEUROLOGICAL: awake and alert, normal speech. moving all extremities. Assessment/Plan Problem List: (1) Deep vein thrombosis (DVT) of right lower extremity ICD Codes: I82.401 - Acute embolism and thrombosis of unspecified deep veins of right lower extremity Plan: ++IVC filter in place. +extensive right lower extremity deep vein thromboses. had hematuria when anticoagulant therapy was initiated. She has not had any hematuria for several days, but has been reluctant to start anticoagulant therapy --has had an IVC filter placed due to contraindication to anticoagulation from hematuria. At this point, she has no more hematuria. --was offered to start a low-dose of low-molecular weight heparin. is reluctant to because of bleeding. will defer starting anticoagulation until the patient is agreeable to it. --If she has no hematuria, she would be a candidate to start anticoagulation. 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 --receiving concurrent chemotherapy and radiation. Assessment 71y/o female admitted with syncope. Oncology consulted for large pelvic mass, s /p diverting colostomy. pathology showed squamous cell carcinoma invading the upper vagina into the bladder and compressing the bowel. She is currently undergoing concurrent chemotherapy and radiation. h/o Chronic renal insufficiency, Anxiety, Esophagitis, Hyperlipidemia, vitamin D deficiency, Anemia, Hematuria, Extensive right lower extremity deep vein thromboses, Locally advanced vaginal squamous cell cancer. Cervical biopsy Total abdominal hysterectomy and bilateral oophorectomy Biopsy of vaginal dysplasia IVC filter placement Plan 1. I discussed again with the patient the importance of anticoagulation and that the IVC filter is not a replacement for anticoagulation. Patient still not wanting to start even low doses of ac at this time. 2. monitor CBC, CMP 3. continue XRT Attending Statement The exam, history, and the medical decision-making described in the above note were completed with the assistance of the mid-level provider. I reviewed and agree with the findings presented. I attest that I had a [id number] encounter with the patient on the same day, and personally performed and documented my assessment and findings in the medical record. UTI w/ GM neg deyanira. Start empiric abx- Bactrim. Discussed increased troponin, concern for PE, no hematuria but pt refuse to start anticoagulation. Encourage to consider when she follows up in clinic on Friday. Discussed electrolyte abnormality corrected. Explained again the need to start anticoagulation when the contraindication/ bleeding has resolved. Pt decline. Problem Qualifiers (1) Deep vein thrombosis (DVT) of right lower extremity: Chelsey Givens Feb 28, 2017 11:59 Kareen Hollingsworth MD Feb 28, 2017 21:05
[2017-02-28 13:41] LABS: AUTOMATED NEUTROPHIL # 2.2 TH/MM3 (1.8-7.7); BASOPHIL % 0.8 % (0.0-2.0); EOSINOPHIL # 0.1 TH/MM3 (0-0.4); EOSINOPHIL % 1.8 % (0.0-4.0); HEMATOCRIT 31.3 % (35.0-46.0); HEMOGLOBIN 10.5 GM/DL (11.6-15.3); LYMPH % 5.7 % (9.0-44.0); LYMPHOCYTE # 0.2 TH/MM3 (1.0-4.8); MEAN CELL VOLUME 90.3 FL (80.0-100.0); MEAN CORPUSCULAR HEMOGLOBIN 30.2 PG (27.0-34.0); MEAN CORPUSCULAR HGB CONC 33.5 % (32.0-36.0); MEAN PLATELET VOLUME 8.1 FL (7.0-11.0); MONO % 14.1 % (0.0-8.0); MONOCYTE # 0.4 TH/MM3 (0-0.9); NEUT % 77.6 % (16.0-70.0); PLATELET COUNT 92 TH/MM3 (150-450); RED BLOOD COUNT 3.46 MIL/MM3 (4.00-5.30); RED CELL DISTRIBUTION WIDTH 15.8 % (11.6-17.2); WHITE BLOOD COUNT 2.8 TH/MM3 (4.0-11.0)
[2017-02-28 13:49] LABS: INTERNATIONAL NORMALIZED RATIO 1.2 RATIO; PROTHROMBIN TIME - PATIENT 12.4 SEC (9.8-11.6)
[2017-02-28 14:12] LABS: BANDS 3 % (0-6); LYMPHOCYTES 5 % (9-44); METAMYELOCYTES 1 % (0-1); MONOCYTES 8 % (0-8); MYELOCYTES 4 % (0-0); NEUTROPHIL # MANUAL DIFF 2.4 TH/MM3 (1.8-7.7); POLYS (SEG NEUTROPHILS) 78 % (16-70)
[2017-02-28 14:13] LABS: OVALOCYTES 1+ (NORMAL)
--- NOTE | 2017-02-28 18:08 | HHI.FF ---
Face to Face Verification Diagnosis: (1) Squamous cell carcinoma (2) Dehydration (3) Orthostatic dizziness Physical Therapy Order: Evaluate and Treat, Improve ambulation, Strength and gait training I have seen patient Divina Escobar on 02/28/17. My clinical findings support the need for the requested home health care services because: Deconditioned w/ increased weakness Med compliance is questionable Limited ability to care for self Need for psychosocial assistance I certify that my clinical findings support that this patient is homebound because: Impaired cognitive ability/safety Unsafe to leave home unassisted Need for psychosocial assistance Unable to use public transportation Javed Olguin DO Feb 28, 2017 18:08
--- NOTE | 2017-02-28 18:11 | HHI.PR ---
Subjective Remarks Pt feels much improved from admission. Pt's dizziness has resolved. Pt has been ambulating in the room to the bathroom. Pt was able to tolerate her breakfast and lunch. Pt is hopeful that she will be able to return home tomorrow. Objective Vitals Vital Signs Date Time Temp Pulse Resp B/P (MAP) Pulse Ox O2 Delivery O2 Flow Rate FiO2 02/28/17 16:00 98.0 93 18 143/67 (92) 02/28/17 12:00 98.1 86 18 133/61 (85) 99 02/28/17 08:00 98.5 87 18 150/67 (94) 100 02/28/17 05:00 98.1 82 16 134/59 (84) 100 02/28/17 04:12 75 02/28/17 00:08 76 02/27/17 23:11 98.1 84 16 133/68 (89) 100 02/27/17 20:27 Room Air 02/27/17 20:18 98.1 89 16 126/59 (81) 99 02/27/17 19:54 89 02/28/17 02/28/17 03/01/17 15:00 23:00 07:00 Intake Total 480 ml Balance 480 ml Intake Oral 480 ml # Voids 3 Result Diagram: 02/28/17 1318 02/28/17 0830 Imaging Last Impressions Chest X-Ray 02/27/17 0000 Signed Impressions: Service Date/Time: February 10:07 - CONCLUSION: 1. No acute cardiopulmonary disease. Anthony Perez MD Objective Remarks GENERAL: This is a well-nourished, well-developed patient, in no apparent distress. CARDIOVASCULAR: Regular rate and rhythm without murmurs, gallops, or rubs. RESPIRATORY: Clear to auscultation. Breath sounds equal bilaterally. No wheezes , rales, or rhonchi. GASTROINTESTINAL: Abdomen soft, non-tender, nondistended. Normal active bowel sounds MUSCULOSKELETAL: Extremities without clubbing, cyanosis, or edema. NEURO: Alert & Oriented x4 to person, place, time, situation. Moves all ext x4 skin: pt has a large, superficial skin tear at left upper arm, no signs of infection A/P Problem List: (1) Orthostatic dizziness ICD Codes: R42 - Dizziness and giddiness Status: Acute Plan: - symptoms have resolved with IV hydration - stop IVFs in AM - electrolytes have normalized. - pt will receive IV hydration outpt at Dr. Rowe's office - PT to evaluate - anticipate d/c to home with [facility] and home PT 03/01/17 (2) Squamous cell carcinoma ICD Codes: C44.92 - Squamous cell carcinoma of skin, unspecified Plan: - Pt follows with Dr. 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 - pt will f/u with Dr. Rowe next week (3) Elevated troponin ICD Codes: R74.8 - Abnormal levels of other serum enzymes Plan: - troponins minimally elevated, flat pattern - EKG unremarkable - NO c/o chest pain - doubt ACS - no further cardiac w/u at this time (4) Deep vein thrombosis (DVT) of right lower extremity ICD Codes: I82.401 - Acute embolism and thrombosis of unspecified deep veins of right lower extremity Plan: - s/p IVC filter d/t PE/DVT - medical oncology urged pt to try resuming anticoagulation, pt declined. - Pt also told me that is NOT ready to start anticoagulation at this time (5) Skin tear of left upper arm without complication ICD Codes: S41.112A - Laceration without foreign body of left upper arm, initial encounter Status: Acute Plan: - clean with saline daily - cover with telfa dressing Problem Qualifiers (1) Deep vein thrombosis (DVT) of right lower extremity: (2) Skin tear of left upper arm without complication: Qualified Codes: S41.112A - Laceration without foreign body of left upper arm, initial encounter Javed Olguin DO Feb 28, 2017 18:11
--- NOTE | 2017-02-28 18:35 | EKG ---
Date Performed: 02/27/2017 Time Performed: 09:03:19 PTAGE: 71 years EKG: Sinus rhythm NORMAL ECG NO PREVIOUS TRACING DOCTOR: Max Qureshi Interpretating Date/Time 02/28/2017 18:34:23
[2017-02-28] MEDS: SULFAMETHOXAZOLE-TRIMETHOPRIM DS 800-160 MG TAB PO SCH (22:32)
[2017-03-01] MEDS: NS + KCL 20 MEQ INJ 1,000 ML IV SCH (01:46)
[2017-03-01 04:37] VITALS: BP 150/67; PULSE 82; RESP 16; TEMP 97.3; O2SAT 98
[2017-03-01 08:00] VITALS: BP 131/67; PULSE 81; RESP 20; TEMP 97.8; O2SAT 100
[2017-03-01 08:07] VITALS: PULSE 76
[2017-03-01] MEDS: PANTOPRAZOLE SOD 40 MG DELAYED RELEASE TAB PO SCH (08:07)
[2017-03-01] MEDS: SULFAMETHOXAZOLE-TRIMETHOPRIM DS 800-160 MG TAB PO SCH (08:08)
--- NOTE | 2017-03-01 10:21 | PD.ONC.PN ---
Subjective Subjective Remarks Afebrile overnight. Patient feeling improved today. Thinks she will be able to go home today. Denies bleeding. Objective Data Date Time Temp Pulse Resp B/P (MAP) Pulse Ox O2 Delivery O2 Flow Rate FiO2 03/01/17 08:00 97.8 81 20 131/67 (88) 100 03/01/17 04:37 97.3 82 16 150/67 (94) 98 02/28/17 23:41 74 02/28/17 23:15 98.7 85 16 138/72 (94) 99 02/28/17 20:18 Room Air 02/28/17 19:53 98.6 92 16 151/70 (97) 100 02/28/17 19:52 92 02/28/17 16:00 98.0 93 18 143/67 (92) 02/28/17 12:00 98.1 86 18 133/61 (85) 99 03/01/17 03/01/17 03/01/17 07:00 15:00 23:00 Intake Total 1698 ml Output Total 500 ml Balance 1198 ml Result Diagram: 02/28/17 1318 02/28/17 0830 Laboratory Results Laboratory Tests Test 02/28/17 13:18 White Blood Count 2.8 TH/MM3 Red Blood Count 3.46 MIL/MM3 Hemoglobin 10.5 GM/DL Hematocrit 31.3 % Mean Corpuscular Volume 90.3 FL Mean Corpuscular Hemoglobin 30.2 PG Mean Corpuscular Hemoglobin Concent 33.5 % Red Cell Distribution Width 15.8 % Platelet Count 92 TH/MM3 Mean Platelet Volume 8.1 FL Neutrophils (%) (Auto) 77.6 % Lymphocytes (%) (Auto) 5.7 % Monocytes (%) (Auto) 14.1 % Eosinophils (%) (Auto) 1.8 % Basophils (%) (Auto) 0.8 % Neutrophils # (Auto) 2.2 TH/MM3 Lymphocytes # (Auto) 0.2 TH/MM3 Monocytes # (Auto) 0.4 TH/MM3 Eosinophils # (Auto) 0.1 TH/MM3 Basophils # (Auto) 0.0 TH/MM3 CBC Comment AUTO DIFF Differential Total Cells Counted 100 Neutrophils % (Manual) 78 % Band Neutrophils % 3 % Lymphocytes % 5 % Monocytes % 8 % Eosinophils % 1 % Neutrophils # (Manual) 2.4 TH/MM3 Metamyelocytes 1 % Myelocytes 4 % Differential Comment FINAL DIFF MANUAL Platelet Estimate LOW Platelet Morphology Comment NORMAL Ovalocytes 1+ Prothrombin Time 12.4 SEC Prothromb Time International Ratio 1.2 RATIO Activated Partial Thromboplast Time 26.6 SEC Fibrinogen 175 mg/dL Culture Results Microbiology Date/Time Source Procedure Growth Status 02/27/17 10:00 Urine Random Urine Urine Culture - Final Enterobacter Cloacae Complete Administered Medications Medications (Trade) Dose Ordered Sig/Gregg Route PRN Reason Start Time Stop Time Status Last Admin Dose Admin Pantoprazole Sodium (Protonix) 40 mg DAILY PO 02/27/17 13:00 03/01/17 08:07 Trimethoprim/ Sulfamethoxazole (Bactrim Ds 800-160 Mg) 1 tab Q12HR PO 02/28/17 21:15 03/03/17 21:14 03/01/17 08:08 Objective Remarks GENERAL: Elderly female upright in bed in nad. SKIN: Warm and dry. HEAD: Normocephalic. EYES: No injection or drainage. NECK: Supple, trachea midline. CARDIOVASCULAR: Regular rate and rhythm RESPIRATORY: Breath sounds equal bilaterally. No accessory muscle use. GASTROINTESTINAL: Abdomen soft, non-tender, nondistended. EXTREMITIES: No cyanosis NEUROLOGICAL: aox3. normal speech. moving all extremities. Assessment/Plan Problem List: (1) Deep vein thrombosis (DVT) of right lower extremity ICD Codes: I82.401 - Acute embolism and thrombosis of unspecified deep veins of right lower extremity Plan: 03/01: patient deferring anticoagulation at this time. ++IVC filter in place. +extensive right lower extremity deep vein thromboses. had hematuria when anticoagulant therapy was initiated. She has not had any hematuria for several days, but has been reluctant to start anticoagulant therapy --has had an IVC filter placed due to contraindication to anticoagulation from hematuria. At this point, she has no more hematuria. --was offered to start a low-dose of low-molecular weight heparin. is reluctant to because of bleeding. will defer starting anticoagulation until the patient is agreeable to it. --If she has no hematuria, she would be a candidate to start anticoagulation. 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 --receiving concurrent chemotherapy and radiation. Assessment 71y/o female admitted with syncope. Oncology consulted for large pelvic mass, s /p diverting colostomy. pathology showed squamous cell carcinoma invading the upper vagina into the bladder and compressing the bowel. She is currently undergoing concurrent chemotherapy and radiation. h/o Chronic renal insufficiency, Anxiety, Esophagitis, Hyperlipidemia, vitamin D deficiency, Anemia, Hematuria, Extensive right lower extremity deep vein thromboses, Locally advanced vaginal squamous cell cancer. Cervical biopsy Total abdominal hysterectomy and bilateral oophorectomy Biopsy of vaginal dysplasia IVC filter placement Plan 1. monitor CBC 2. once discharged, follow up with CHARITY Sepulveda in clinic next Friday for hydration and then the following week with Dr. Rowe Attending Statement The exam, history, and the medical decision-making described in the above note were completed with the assistance of the mid-level provider. I reviewed and agree with the findings presented. I attest that I had a [id number] encounter with the patient on the same day, and personally performed and documented my assessment and findings in the medical record. Patient seen and examined, vital signs, labs, medications and medical history reviewed. Patient with squamous cell carcinoma of the vagina, currently on chemotherapy and radiation. Presents with bilateral lower extremity deep venous thromboses. Previously with anticoagulation she developed severe vaginal bleeding presumably related to bleeding from the neoplastic process in the vaginal cuff. She is therefore status post IVC filter placement this hospitalization. I did talk to the patient about the possibility of her being rechallenged with anticoagulation once she has completed chemoradiotherapy. She understands, the plan is to discharge her home later this evening with outpatient follow-up with medical oncology, radiation oncology as well as gynecologic oncology. Problem Qualifiers (1) Deep vein thrombosis (DVT) of right lower extremity: Chelsey Givens Mar 01, 2017 10:21 Dima Salgado MD Mar 01, 2017 15:52
[2017-03-01 12:00] VITALS: BP 128/61; PULSE 78; PULSE 90; RESP 20; TEMP 98.3; O2SAT 97
[2017-03-01] MEDS ORDERED: ONDANSETRON HCL 4 MG/2 ML VIAL IV PUSH PRN (12:00)
[2017-03-01] MEDS ORDERED: SULF1TAB23 PO (15:07)
--- NOTE | 2017-03-01 15:52 | HHI.DS ---
Discharge Summary Admission Date Feb 27, 2017 at 12:43 Discharge Date: Mar 01, 2017 Admitting Diagnosis dehydration, elevated troponin, hypokalemia, orthostatic dizziness (1) Orthostatic dizziness Diagnosis: Principal ICD Codes: R42 - Dizziness and giddiness Status: Acute (2) Squamous cell carcinoma Diagnosis: Principal ICD Codes: C44.92 - Squamous cell carcinoma of skin, unspecified (3) Deep vein thrombosis (DVT) of right lower extremity Diagnosis: Secondary ICD Codes: I82.401 - Acute embolism and thrombosis of unspecified deep veins of right lower extremity (4) Skin tear of left upper arm without complication Diagnosis: Principal ICD Codes: S41.112A - Laceration without foreign body of left upper arm, initial encounter Status: Acute Consultants Dr. Hollingsworth, oncology Procedures none Brief History The patient is a 71-year-old female who presents emergency department for dizziness and lightheadedness. The patient has a history of pelvic carcinoma, unknown per patient, but is followed by her oncologic surgeon, Dr. De Los Santos, and her radiation oncologist, Dr. Walsh. The patient states she is currently undergoing chemotherapy and radiation therapy, has had persistent nausea for last several weeks, twice a day. She has been taking promethazine at home with mild alleviation of her symptoms. The patient states she went to use the restroom this morning, with the assistance of her , when she stood up she became lightheaded and dizzy. The help the patient to the ground, she did not have a true syncopal episode, according to EMS there was a questionable loss of consciousness. The patient does complain of lightheadedness and dizziness, with a with standing upright with mild nausea. The patient denies any headache, chest pain, or shortness of breath. She does have a history of previous abdominal surgery for her cancer with subsequent colostomy. 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 The patient denies any palpitations, chest pain, or shortness of breath. Symptoms are moderate. Patient admitted for IV hydration and also found to have elevated troponin will follow up labs. CBC/BMP: 02/28/17 1318 02/28/17 0830 Significant Findings Laboratory Tests Test 02/27/17 09:15 02/27/17 10:00 02/27/17 11:00 02/28/17 08:30 White Blood Count 3.4 TH/MM3 (4.0-11.0) Red Blood Count 3.47 MIL/MM3 (4.00-5.30) Hemoglobin 10.7 GM/DL (11.6-15.3) Hematocrit 30.9 % (35.0-46.0) Platelet Count 82 TH/MM3 (150-450) Neutrophils (%) (Auto) 84.5 % (16.0-70.0) Lymphocytes (%) (Auto) 3.4 % (9.0-44.0) Monocytes (%) (Auto) 11.1 % (0.0-8.0) Lymphocytes # (Auto) 0.1 TH/MM3 (1.0-4.8) Band Neutrophils % 20 % (0-6) Lymphocytes % 7 % (9-44) Myelocytes 1 % (0-0) Platelet Estimate LOW (NORMAL) Ovalocytes 1+ (NORMAL) Total Protein 5.3 GM/DL (6.4-8.2) Albumin 2.2 GM/DL (3.4-5.0) Calcium Level 7.0 MG/DL (8.5-10.1) 8.3 MG/DL (8.5-10.1) Magnesium Level 1.4 MG/DL (1.5-2.5) Potassium Level 2.6 MEQ/L (3.5-5.1) Carbon Dioxide Level 18.7 MEQ/L (21.0-32.0) 18.0 MEQ/L (21.0-32.0) Estimat Glomerular Filtration Rate 63 ML/MIN (>89) 56 ML/MIN (>89) Protein Corrected Calcium 7.9 MG/DL (8.5-10.1) Total Creatine Kinase 22 U/L (26-192) Troponin I 0.11 NG/ML (0.02-0.05) 0.14 NG/ML (0.02-0.05) Urine Turbidity HAZY (CLEAR) Urine Protein 30 mg/dL (NEG-TRACE) Urine Ketones 40 mg/dL (NEG) Urine Occult Blood MOD (NEG) Urine Leukocyte Esterase MOD (NEG) Urine RBC 20 /hpf (0-3) Urine WBC 43 /hpf (0-5) Urine WBC Clumps RARE (NONE) Urine Bacteria FEW /hpf (NONE) Urine Mucus FEW /lpf (OCC) Prothrombin Time 13.0 SEC (9.8-11.6) Activated Partial Thromboplast Time 23.9 SEC (24.3-30.1) Test 02/28/17 13:18 White Blood Count 2.8 TH/MM3 (4.0-11.0) Red Blood Count 3.46 MIL/MM3 (4.00-5.30) Hemoglobin 10.5 GM/DL (11.6-15.3) Hematocrit 31.3 % (35.0-46.0) Platelet Count 92 TH/MM3 (150-450) Neutrophils (%) (Auto) 77.6 % (16.0-70.0) Lymphocytes (%) (Auto) 5.7 % (9.0-44.0) Monocytes (%) (Auto) 14.1 % (0.0-8.0) Lymphocytes # (Auto) 0.2 TH/MM3 (1.0-4.8) Neutrophils % (Manual) 78 % (16-70) Lymphocytes % 5 % (9-44) Myelocytes 4 % (0-0) Platelet Estimate LOW (NORMAL) Ovalocytes 1+ (NORMAL) Prothrombin Time 12.4 SEC (9.8-11.6) Fibrinogen 175 mg/dL (227-377) Imaging Last Impressions Chest X-Ray 02/27/17 0000 Signed Impressions: Service Date/Time: February 10:07 - CONCLUSION: 1. No acute cardiopulmonary disease. Anthony Perez MD PE at Discharge GENERAL: This is a well-nourished, well-developed patient, in no apparent distress. CARDIOVASCULAR: Regular rate and rhythm without murmurs, gallops, or rubs. RESPIRATORY: Clear to auscultation. Breath sounds equal bilaterally. No wheezes , rales, or rhonchi. GASTROINTESTINAL: Abdomen soft, non-tender, nondistended. Normal active bowel sounds MUSCULOSKELETAL: Extremities without clubbing, cyanosis, or edema. NEURO: Alert & Oriented x4 to person, place, time, situation. Moves all ext x4 SKIN: pt has a large, superficial skin tear at left upper arm, no signs of infection. dressing dry and intact Hospital Course Orthostatic dizziness- resolved - symptoms have resolved with IV hydration - stop IVFs in AM - electrolytes have normalized. - pt will receive IV hydration outpt at Oncology office - PT to evaluate - d/c to home with [facility] and home PT Squamous cell carcinoma - Pt follows with Dr. 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 - pt will f/u with Dr. Rowe next week Elevated troponin - troponin minimally elevated, flat pattern - EKG unremarkable - NO c/o chest pain - doubt ACS - no further cardiac w/u at this time Deep vein thrombosis (DVT) of right lower extremity - s/p IVC filter d/t PE/DVT - medical oncology urged pt to try resuming anticoagulation, pt declined. - Pt also told me that is NOT ready to start anticoagulation at this time Skin tear of left upper arm without complication - clean with saline daily - cover with telfa dressing - [facility] to assist with wound care UTI - Urine culture showing Enterobacter Cloacae sensitive to Bactrim. Will DC with Bactrim Pt Condition on Discharge: Fair Discharge Disposition: Disch w/ Home Health Serv Discharge Instructions DIET: Follow Instructions for: As Tolerated, No Restrictions Activities you can perform: Regular-No Restrictions Follow up Referrals: Oncology/Hematology - 03/05/17 with Yolanda Brand New Medications: Sulfamethoxazole-Trimethoprim (Sulfamethoxazole-Trimethoprim) 800-160 Mg Tab 1 TAB PO Q12HR for UTI for 4 Days, #8 TAB 0 Refills Continued Medications: Alprazolam (Alprazolam) 0.25 Mg Tab 0.25 MG PO TID PRN for ANXIETY, TAB 0 Refills Hydrocodone-Acetaminophen (Corbin) 7.5-325 mg Tab 1 TAB PO Q4H PRN for PAIN, #30 TAB 0 Refills Ondansetron (Zofran) 4 Mg Tab 4 MG PO Q8HR PRN for NAUSEA OR VOMITING, #10 TAB 0 Refills Pantoprazole (Protonix) 40 Mg Tab 40 MG PO DAILY for Ulcer Prevention, #30 TAB 0 Refills Prochlorperazine Supp (Prochlorperazine Supp) 25 Mg Supp 25 MG RECTAL Q6H PRN for NAUSEA OR VOMITING, #30 SUPP 0 Refills Discontinued Medications: Lisinopril (Lisinopril) 10 Mg Tab 10 MG PO Q12HR for blood pressure, #60 TAB 0 Refills Metronidazole (Flagyl) 500 Mg Tab 500 MG PO Q8H for C Diff for 11 Days, #33 TAB 0 Refills Additional Information Patient examined. Assessment and plan formulated with Ruth King PA-C. I agree with the above. Ruth King Mar 01, 2017 15:52 Javed Olguin DO Mar 06, 2017 00:45
[2017-03-01 15:58] VITALS: PULSE 84
[2017-03-01 16:00] VITALS: BP 145/68; PULSE 89; RESP 20; TEMP 98.5; O2SAT 97
[2017-03-01] MEDS ORDERED: SODIUM CHLORIDE 0.9% FLUSH 10 ML FLUSH IV FLUSH PRN (18:30)
== END 2017-03-01 19:22 | disposition home health service (06) | DRG 641 ==
LOC: NEPC 08:14 → NEDA 11:26 → OBSVTOIN 12:43 → N04A 15:26
PROVIDERS: ADMIT Hospitalist; ATTEND Hospitalist
DX: E86.0 Dehydration (principal); C76.8 Malignant neoplasm of other specified ill-defined sites; I82.501 Chronic embolism and thrombosis of unspecified deep veins of right lower extremity; N39.0 Urinary tract infection, site not specified; B96.89 Other specified bacterial agents as the cause of diseases classified elsewhere; I12.9 Hypertensive chronic kidney disease with stage 1 through stage 4 chronic kidney disease, or unspecified chronic kidney disease; N18.3 Chronic kidney disease, stage 3 (moderate); E87.6 Hypokalemia; R42 Dizziness and giddiness; Z92.21 Personal history of antineoplastic chemotherapy; Z92.3 Personal history of irradiation; Z93.3 Colostomy status; R74.8 Abnormal levels of other serum enzymes; F41.9 Anxiety disorder, unspecified; S41.112A Laceration without foreign body of left upper arm, initial encounter; X58.XXXA Exposure to other specified factors, initial encounter; Z87.891 Personal history of nicotine dependence
CPT/HCPCS: 71045; 80048; 80053; 81001; 82550; 83735; 84484; 85007; 85027; 85384; 85610; 85730; 87077; 87086; 87186; 93005; 96361; 96374; 96375; 96376; J1642; J2405; J3475; J3480; J7030

== ENCOUNTER → 2017-08-05 | Outpatient (CLI) | payer MEDICARE ==
[~2017-08-05] MED LIST changes: +FURO1TAB62 PO; -LISI10TA3 PO; -METR-1 PO; +SULF1TAB23 PO
[2017-08-05 10:02] LABS: AUTOMATED NEUTROPHIL # 2.5 TH/MM3 (1.8-7.7); EOSINOPHIL # 0.1 TH/MM3 (0-0.4); EOSINOPHIL % 4.1 % (0.0-4.0); HEMATOCRIT 33.8 % (35.0-46.0); HEMOGLOBIN 11.2 GM/DL (11.6-15.3); LYMPH % 12.2 % (9.0-44.0); LYMPHOCYTE # 0.4 TH/MM3 (1.0-4.8); MEAN CELL VOLUME 93.3 FL (80.0-100.0); MEAN CORPUSCULAR HGB CONC 33.2 % (32.0-36.0); MEAN PLATELET VOLUME 7.6 FL (7.0-11.0); MONO % 9.2 % (0.0-8.0); MONOCYTE # 0.3 TH/MM3 (0-0.9); NEUT % 73.5 % (16.0-70.0); PLATELET COUNT 202 TH/MM3 (150-450); RED BLOOD COUNT 3.62 MIL/MM3 (4.00-5.30); RED CELL DISTRIBUTION WIDTH 14.6 % (11.6-17.2); WHITE BLOOD COUNT 3.3 TH/MM3 (4.0-11.0)
[2017-08-05 10:12] LABS: BACTERIA, URINE RARE /hpf; BILIRUBIN, URINE NEG (NEG); BLOOD, URINE TRACE (NEG); GLUCOSE,URINE NEG (NEG); KETONE, URINE NEG (NEG); MUCUS URINE FEW /lpf (OCC); NITRITE,URINE NEG (NEG); PH, URINE 5.5 (5.0-8.5); SQUAMOUS EPITHELIAL CELL URINE 4 /hpf (0-5); URINE COLOR YELLOW (YELLW/STRAW); URINE LEUKOCYTE ESTERASE SMALL (NEG)
[2017-08-05 10:14] LABS: PROTHROMBIN TIME - PATIENT 10.1 SEC (9.8-11.6)
[2017-08-05 10:15] LABS: ALBUMIN 3.6 GM/DL (3.4-5.0); AST (GOT) 24 U/L (15-37); BICARBONATE 25.1 MEQ/L (21.0-32.0); BLOOD UREA NITROGEN 23 MG/DL (7-18); CALCIUM 9.5 MG/DL (8.5-10.1); CHLORIDE 107 MEQ/L (98-107); CREATININE 1.41 MG/DL (0.50-1.00); GLOMERULAR FILTRATION RATE 36 ML/MIN (>89); GLUCOSE,FASTING 91 MG/DL (74-99); SODIUM (NA) 142 MEQ/L (136-145)
[2017-08-05 10:17] LABS: ALT (GPT) 27 U/L (10-53)
[2017-08-05 10:18] LABS: ALKALINE PHOSPHATASE 97 U/L (45-117); TOTAL BILIRUBIN ADULT 0.7 MG/DL (0.2-1.0); TOTAL PROTEIN 7.9 GM/DL (6.4-8.2)
== END ==
LOC: CPRE 09:15
PROVIDERS: ATTEND Colon & Rectal Surgery
DX: Z01.812 Encounter for preprocedural laboratory examination (principal); Z01.818 Encounter for other preprocedural examination; R19.00 Intra-abdominal and pelvic swelling, mass and lump, unspecified site
CPT/HCPCS: 36415; 80053; 81001; 85025; 85610; 85730

== ENCOUNTER 2017-10-29 09:21 | Inpatient (IN) ==
[2017-10-29] MEDS ORDERED: Chlorhexidine Gluconate 2% 1 Pack (2 Cloths) TOPICAL ONE (09:44)
[2017-10-29] MEDS ORDERED: Metoprolol Tartrate 25 MG Tablet PO ONE (09:44)
[2017-10-29] MEDS ORDERED: Dextrose 5%/NaCl 0.9% Inj 1,000 ML IV.CONT SCH (10:00)
[2017-10-29] MEDS ORDERED: Sodium Chlor 0.9% Inj 500 ML IV.SIG SCH (10:00)
[2017-10-29] MEDS ORDERED: Bupivacaine PF 0.5% Inj 30 ML Vial ONE (10:10)
[2017-10-29 10:46] LABS: Baso % (Auto) 0.7 % (0.0-2.0); Eos % (Auto) 0.9 % (0.0-4.0); Hematocrit 32.5 % (35.0-46.0); Hemoglobin 11.2 gm/dL (11.6-15.3); Lymph # (Auto) 0.3 th/mm3 (1.0-4.8); Lymph % (Auto) 5.3 % (9.0-44.0); Mean Corpuscular HGB Conc 34.5 % (32.0-36.0); Mean Corpuscular Hemoglobin 31.3 pg (27.0-34.0); Mean Corpuscular Volume 90.8 fL (80.0-100.0); Mean Platelet Volume 7.8 fL (7.0-11.0); Mono # (Auto) 0.2 th/mm3 (0.0-0.9); Mono % (Auto) 3.4 % (0.0-8.0); Neut # (Auto) 4.6 th/mm3 (1.8-7.7); Neut % (Auto) 89.7 % (16.0-70.0); Platelet Count 235 th/mm3 (150-450); Red Blood Count 3.58 mil/mm3 (4.00-5.30); Red Cell Distribution Width 14.8 % (11.6-17.2); White Blood Count 5.2 th/mm3 (4.0-11.0)
--- NOTE | 2017-10-29 10:52 | P.HPUP ---
The Pre-Admit History and Physical Examination regarding the above named patient was reviewed (including, but not limited to, vital signs, heart, lungs, co-morbid conditions), and upon re-examination it is noted that: the patient's condition has not significantly changed since the last examination.
[2017-10-29] MEDS ORDERED: Lidocaine PF 1% Inj 5 ML Syringe INFILTRATN ONE (11:45)
[2017-10-29] MEDS ORDERED: Glycopyrrolate Inj 1 MG/5 ML Syringe IV.PUSH ONE (11:45)
[2017-10-29] MEDS ORDERED: Neostigmine Inj 5 MG/5 ML Syringe IV.PUSH ONE (11:45)
[2017-10-29] MEDS ORDERED: Acetaminophen 325 MG Tablet PO PRN (13:22)
[2017-10-29] MEDS ORDERED: Potassium Chlor 40 mEq Premix 40 MEQ/100 ML PIGGYBACK IV.SIG PRN (13:22)
[2017-10-29] MEDS ORDERED: Potassium Chlor 20 mEq Premix 20 MEQ/100 ML PIGGYBACK IV.SIG PRN (13:22)
[2017-10-29] MEDS ORDERED: Ketorolac Inj 30 MG/ML (IVP) Vial IV.PUSH PRN (13:22)
[2017-10-29] MEDS ORDERED: fentaNYL Citrate Inj 100 MCG/2 ML Ampul ONE (13:40)
[2017-10-29] MEDS ORDERED: *Ondansetron Inj 4 MG/2 ML Vial PERIprocedural Use ONLY ONE (13:40)
[2017-10-29] MEDS ORDERED: *morphine SULFATE 4 MG/ML PERIprocedure ONLY ONE ×2 (13:46→14:05)
[2017-10-29] MEDS ORDERED: Ketorolac Inj 30 MG/ML (IVP) Vial ONE (13:54)
[2017-10-29] MEDS ORDERED: KCL 20 mEq/D5W/NaCl 0.9% Inj 1,000 ML ONE (13:55)
[2017-10-29] MEDS: KCL 20 mEq/D5W/NaCl 0.9% Inj 1,000 ML IV.CONT SCH ×2 (15:26→21:50)
[2017-10-29] MEDS ORDERED: Morphine Inj 30 MG/30 ML PCA.VIAL PCA PRN (16:05)
[2017-10-29] MEDS ORDERED: Naloxone Inj 0.4 MG/ML Vial IV.PUSH PRN (16:05)
[2017-10-30] MEDS: KCL 20 mEq/D5W/NaCl 0.9% Inj 1,000 ML IV.CONT SCH ×3 (04:47→21:12)
[2017-10-30 07:20] LABS: Baso % (Auto) 0.2 % (0.0-2.0); Hematocrit 27.1 % (35.0-46.0); Hemoglobin 9.1 gm/dL (11.6-15.3); Lymph # (Auto) 0.2 th/mm3 (1.0-4.8); Lymph % (Auto) 3.3 % (9.0-44.0); Mean Corpuscular HGB Conc 33.5 % (32.0-36.0); Mean Corpuscular Hemoglobin 30.6 pg (27.0-34.0); Mean Corpuscular Volume 91.3 fL (80.0-100.0); Mean Platelet Volume 7.6 fL (7.0-11.0); Mono # (Auto) 0.5 th/mm3 (0.0-0.9); Mono % (Auto) 6.7 % (0.0-8.0); Neut # (Auto) 6.5 th/mm3 (1.8-7.7); Neut % (Auto) 89.8 % (16.0-70.0); Platelet Count 173 th/mm3 (150-450); Red Blood Count 2.97 mil/mm3 (4.00-5.30); Red Cell Distribution Width 14.7 % (11.6-17.2); White Blood Count 7.2 th/mm3 (4.0-11.0)
[2017-10-30 07:56] LABS: Calcium 8.2 mg/dL (8.5-10.1); Carbon Dioxide 23.7 meq/L (21.0-32.0); Potassium 5.3 meq/L (3.5-5.1)
[2017-10-30] MEDS: Pantoprazole Inj 40 MG Vial IV.PUSH SCH (10:42)
--- NOTE | 2017-10-30 23:16 | MP ---
cc: Javi Mansfield MD DATE OF OPERATION: 10/29/2017 PREOPERATIVE DIAGNOSIS: History of pelvic tumor, attention to colostomy. PROCEDURE PERFORMED: Exploratory laparotomy with segmental colon resection and closure of colostomy. POSTOPERATIVE DIAGNOSIS: History of pelvic tumor, attention to colostomy. SURGEON: Javi Mansfield MD STAFFING DIRECTOR: Anthony Dewey MD DESCRIPTION OF PROCEDURE: The patient was placed in the supine position. After adequate general anesthesia, her abdomen was prepped with Betadine solution and draped in the usual sterile fashion. With Dr. Dewey's assistance, an elliptical incision was made around the colostomy in the proximal and distal limbs of the colostomy dissected free from the subcutaneous tissues. The bowel was mobilized up out of the abdominal cavity, noting some adhesions to the parietal peritoneum, especially along the midline incision. An avascular plane was created both proximal and distal to the colostomy and the bowel divided in both places with a TAMIKO stapling device. The intervening mesentery was taken between Kellys, obtaining hemostasis with Vicryl ties. Bowel continuity was then restored by firing the TAMIKO stapler across the antimesenteric ends of the bowel, closing the enterotomy with a TA 60 stapler. The mesenteric defect was closed with several interrupted Vicryl sutures and a 3-0 Vicryl crotch suture placed as well. The bowel was returned to the abdominal cavity. The abdominal wound was then closed in 2 layers using #1 PDS sutures to reapproximate the respective fascial layers. The subcutaneous tissues were irrigated copiously and the subcutaneous tissue closed deeply with interrupted Vicryl sutures and the skin closed loosely with a row of surgical stella. Wound area was washed with normal saline and dried, sterile dressing of Telfa and gauze applied. The patient tolerated the procedure quite well and was brought to the recovery room in stable condition. Sponge and needle counts were correct at the end of the procedure. MD AMPARO Mckeon/pacheco , 10:52 PM , 10:59 PM
[2017-10-31 07:56] LABS: Baso % (Auto) 0.8 % (0.0-2.0); Eos # (Auto) 0.1 th/mm3 (0.0-0.4); Eos % (Auto) 2.4 % (0.0-4.0); Hematocrit 27.3 % (35.0-46.0); Hemoglobin 9.1 gm/dL (11.6-15.3); Lymph # (Auto) 0.5 th/mm3 (1.0-4.8); Lymph % (Auto) 7.7 % (9.0-44.0); Mean Corpuscular HGB Conc 33.4 % (32.0-36.0); Mean Corpuscular Hemoglobin 30.3 pg (27.0-34.0); Mean Corpuscular Volume 90.9 fL (80.0-100.0); Mean Platelet Volume 7.9 fL (7.0-11.0); Mono # (Auto) 0.4 th/mm3 (0.0-0.9); Mono % (Auto) 6.5 % (0.0-8.0); Neut % (Auto) 82.6 % (16.0-70.0); Platelet Count 183 th/mm3 (150-450)
[2017-10-31 08:39] LABS: Calcium 8.2 mg/dL (8.5-10.1); Potassium 4.2 meq/L (3.5-5.1)
[2017-10-31] MEDS: Pantoprazole Inj 40 MG Vial IV.PUSH SCH (09:21)
[2017-10-31] MEDS: KCL 20 mEq/D5W/NaCl 0.9% Inj 1,000 ML IV.CONT SCH (17:32)
--- NOTE | 2017-10-31 17:42 | P.PNCS ---
Subjective Colorectal Surgery Post Op Day #: 2 Interval history: afebrile, VSS UO good +BM Objective Vital Signs/Intake & Output: PE alert Abd - soft, flat, wound dry Result Diagrams: 10/31/17 06:31 10/31/17 06:31 Assessment and Plan - Plan Imp: DC IVF adv diet DC plans
== END 2017-10-31 19:15 | disposition home or self-care (01) ==
LOC: HSDI 09:21 → N07 16:04
PROVIDERS: ADMIT Colon & Rectal Surgery; ATTEND Colon & Rectal Surgery